=== PATIENT | male | born 1960 | race Caucasian/White ===

== ENCOUNTER → 2017-07-06 | Outpatient (CLI) | payer BC ==
--- NOTE | 2017-07-07 08:33 | XR ---
EXAMINATION TYPE: XR wrist complete LT DATE OF EXAM: 07/06/2017 COMPARISON: NONE HISTORY: 57 year-old male left wrist pain and swelling after fall last night TECHNIQUE: 3 views FINDINGS: There is an oblique, nondisplaced, intra-articular fracture of the radial styloid process. Soft tissu e swelling. There also appears to be a nondisplaced fracture through the waist of the scaphoid. IMPRESSION: 1. Oblique, nondisplaced, intra-articular fracture of the radial styloid process. 2. Findings also suggest nondisplaced fracture through the scaphoid waist.
== END | disposition home or self-care (01) ==
LOC: RADXRYALE 16:31
PROVIDERS: ATTEND Physician Assistant Medical
DX: S52.515A Nondisplaced fracture of left radial styloid process, initial encounter for closed fracture (principal)

== ENCOUNTER 2018-11-02 13:37 | Inpatient (IN) | payer BC, OTHER ==
--- NOTE | 2018-11-02 14:25 | ED ---
Abdominal Pain HPI - General Chief Complaint: Abdominal Pain Stated Complaint: constipation Time Seen by Provider: 11/02/18 13:53 Source: patient, RN notes reviewed Mode of arrival: ambulatory Limitations: no limitations - History of Present Illness Initial Comments: 58-year-old male presents emergency Department with chief complaint of intermittent abdominal pain. Patient states symptoms have been going on since July. Patient states that he's also had constipation in which she states she's tried laxatives bleeding at home. He said no prior abdominal surgeries. Denies any current nausea vomiting melena, hematochezia, dysuria or urinary frequency. He's had no fevers chills. Patient does not take any current medications patient states pain is actually resolved at this time. - Related Data Home Medications Medication Instructions Recorded Confirmed No Known Home Medications 11/02/18 11/02/18 Allergies Allergy/AdvReac Type Severity Reaction Status Date / Time No Known Allergies Allergy Verified 11/02/18 13:52 Review of Systems ROS Statement: Those systems with pertinent positive or pertinent negative responses have been documented in the HPI. ROS Other: All systems not noted in ROS Statement are negative. 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 Absent: scleral icterus, conjunctival injection, periorbital swelling Respiratory exam: Present: normal lung sounds bilaterally. Absent: respiratory distress, wheezes, rales, rhonchi, stridor Cardiovascular Exam: Present: regular rate, normal rhythm, normal heart sounds. Absent: systolic murmur, diastolic murmur, rubs, gallop, clicks GI/Abdominal exam: Present: soft, normal bowel sounds. Absent: distended, tenderness, guarding, rebound, rigid Back exam: Absent: CVA tenderness (R), CVA tenderness (L) Neurological exam: Present: alert Skin exam: Present: warm, dry, intact, normal color. Absent: rash Course Vital Signs 11/02/18 13:42 Temperature 98.1 F Pulse Rate 85 Respiratory 18 Rate Blood Pressure 146/94 O2 Sat by Pulse 98 Oximetry Medical Decision Making - Medical Decision Making 58 show male present emergency department for abdominal discomfort, felt to be constipated. X-ray shows evidence of small bowel obstruction. Patient will be admitted with consultation surgery. Patient did have lab work which is essentially unremarkable at this time. - Lab Data Result diagrams: 11/02/18 14:18 11/02/18 14:18 Lab Results 11/02/18 11/02/18 Range/Units 14:18 14:18 WBC 8.0 (3.8-10.6) k/uL RBC 5.09 (4.30-5.90) m/uL Hgb 15.6 (13.0-17.5) gm/dL Hct 46.3 (39.0-53.0) % MCV 90.9 (80.0-100.0) fL MCH 30.6 (25.0-35.0) pg MCHC 33.6 (31.0-37.0) g/dL RDW 15.1 (11.5-15.5) % Plt Count 383 (150-450) k/uL Neutrophils % 63 % Lymphocytes % 25 % Monocytes % 6 % Eosinophils % 4 % Basophils % 1 % Neutrophils # 5.1 (1.3-7.7) k/uL Lymphocytes # 2.0 (1.0-4.8) k/uL Monocytes # 0.5 (0-1.0) k/uL Eosinophils # 0.3 (0-0.7) k/uL Basophils # 0.0 (0-0.2) k/uL Sodium 133 L (137-145) mmol/L Potassium 4.1 (3.5-5.1) mmol/L Chloride 100 (98-107) mmol/L Carbon Dioxide 22 (22-30) mmol/L Anion Gap 11 mmol/L BUN 12 (9-20) mg/dL Creatinine 0.73 (0.66-1.25) mg/dL Est GFR (CKD-EPI)AfAm >90 (>60 ml/min/1.73 sqM) Est GFR (CKD-EPI)NonAf >90 (>60 ml/min/1.73 sqM) Glucose 91 (74-99) mg/dL Calcium 9.1 (8.4-10.2) mg/dL Total Bilirubin 0.8 (0.2-1.3) mg/dL AST 15 L (17-59) U/L ALT 15 L (21-72) U/L Alkaline Phosphatase 90 (38-126) U/L Total Protein 6.6 (6.3-8.2) g/dL Albumin 3.6 (3.5-5.0) g/dL Amylase <30 L (30-110) U/L Lipase 19 L (23-300) U/L Disposition Clinical Impression: Small bowel obstruction Disposition: ADMITTED IP TO THIS HOSP Condition: Stable Referrals: Liseth Daniels, PAC [Primary Care Provider] - 1-2 days
[2018-11-02 14:35] LABS: Basophils % (A) 1 %; Eosinophils # (A) 0.3 k/uL (0-0.7); Eosinophils % (A) 4 %; HCT 46.3 % (39.0-53.0); HGB 15.6 gm/dL (13.0-17.5); Lymphocytes % (A) 25 %; MCH 30.6 pg (25.0-35.0); MCHC 33.6 g/dL (31.0-37.0); MCV 90.9 fL (80.0-100.0); Mean Platelet Volume 6.7; Monocytes # (A) 0.5 k/uL (0-1.0); Monocytes % (A) 6 %; Neutrophils # (A) 5.1 k/uL (1.3-7.7); Neutrophils % (A) 63 %; Platelet Count 383 k/uL (150-450); RBC 5.09 m/uL (4.30-5.90); RDW 15.1 % (11.5-15.5)
[2018-11-02 14:36] LABS: ALT 15 U/L (21-72); AST 15 U/L (17-59); African American GFR (CKD) >90 (>60 ml/min/1.73 sqM); Albumin 3.6 g/dL (3.5-5.0); Alkaline Phosphatase 90 U/L (38-126); Amylase <30 U/L (30-110); Anion Gap 11 mmol/L; Blood Urea Nitrogen 12 mg/dL (9-20); Calcium 9.1 mg/dL (8.4-10.2); Carbon Dioxide 22 mmol/L (22-30); Chloride 100 mmol/L (98-107); Glucose 91 mg/dL (74-99); Potassium 4.1 mmol/L (3.5-5.1); Sodium 133 mmol/L (137-145); Total Bilirubin 0.8 mg/dL (0.2-1.3); Total Protein 6.6 g/dL (6.3-8.2)
--- NOTE | 2018-11-02 14:54 | XR ---
EXAMINATION TYPE: XR KUB DATE OF EXAM: 11/02/2018 COMPARISON: None INDICATION: Abdomen pain constipation TECHNIQUE: Single view abdomen upright view FINDINGS: Multiple air-fluid levels are present within dilated small bowel loops. Differential air-fluid levels appear to be present. Mass effect is not evident. Psoas margins are normal. No organomegaly is present. No free air is evident IMPRESSION: 1. Dilated small bowel loops with differential air-fluid levels suggestive for small bowel obstructio n. This may be within the mid small bowel loops. Report was called to the emergency PA room by Dr. Dangelo johnson by telephone at 1455 hours 11/02/2018
[2018-11-02] MEDS ORDERED: NALOXONE 0.4 MG/ML 1 ML VIAL IV PRN (14:59)
[2018-11-02] MEDS ORDERED: MORPHINE SULFATE 4 MG/ML SYRINGE IV PRN (14:59)
[2018-11-02] MEDS: SODIUM CHLORIDE 0.9% 1,000 ML IV SCH (16:16)
--- NOTE | 2018-11-02 17:11 | XR ---
EXAMINATION TYPE: XR KUB portable DATE OF EXAM: 11/02/2018, 4:23 PM COMPARISON: 11/02/2018, 2:40 PM HISTORY: 58-year-old male confirm NG tube placement TECHNIQUE: AP portable view FINDINGS: NG tube is short, the tip is at the GE junction level. The sidehole should be advanced by 10 cm in or doyle to enter the stomach. Severely distended bowel loops measuring up to 10.0 cm appear increased from earlier today. IMPRESSION: 1. NG tube tip at the GE junction. Advance by 10 cm and reassess. 2. Severely distended bowel loops measuring up to 10 cm. This appears increased from earlier today.
--- NOTE | 2018-11-02 17:16 | XR ---
EXAMINATION TYPE: XR abdomen 1V DATE OF EXAM: 11/02/2018 COMPARISON: 11/02/2018 INDICATION: NG tube placement TECHNIQUE: Single view abdomen upright view FINDINGS: Prominent bowel gas is present within the midabdomen. There is been placement of a nasogastric tube w ith the tip within the proximal left upper quadrant. This could be advanced 5 to 10 cm. No free air is evident. No obvious mass effect organomegaly is evident. IMPRESSION: 1. Nasogastric tube tip within the proximal left upper quadrant of the abdomen. This could be advance d 5 to 10 cm. 2. Prominent loops of bowel remain evident.
--- NOTE | 2018-11-02 17:44 | P.HPIM ---
History of Present Illness H&P Date: 11/02/18 Chief Complaint: Abdominal pain 58-year-old male with long history of smoking presents to the ED for abdominal pain and bloating. Patient reports bloating in his abdomen that his pain on and off since July of this year. More recently, patient has experienced bloatingthat has been progressively worsening over the last couple of days. He reports lower abdominal pain bilaterally. Pain is 7-8 out of 10 in severity. Patient is unable to describe the characteristics of this pain. Pain is aggravated with meals with no alleviating factors. Patient also reports some episodes of nonbilious nonbloody nausea and vomiting. He denies any headache or lower extremity edema. He denies any fever or chills. He denies any cough, chest pain, shortness of breath, changes in urination. Patient reports a history of constipation and difficulties moving his bowels. Patient also reports decreased appetite at this time. He denies any dizziness, numbness/weakness/tingling of t he extremities. In the ED, vital signs are stable. CBC was unremarkable. CMP showed a sodium 132. Lipase was negative. KUB showed small bowel obstruction. NG tube was placed in the ED and patient was admitted for medical management with surgery on consultation. Review of Systems All systems: negative Past Medical History Past Medical History: GERD/Reflux Additional Past Medical History / Comment(s): Constipation since Jul, 2018. History of Any Multi-Drug Resistant Organisms: None Reported Past Surgical History: Orthopedic Surgery Additional Past Surgical History / Comment(s): lt foot amputation due to farm ac cident Past Anesthesia/Blood Transfusion Reactions: No Reported Reaction Smoking Status: Current every day smoker - Past Family History Father Additional Family Medical History / Comment(s): Father had an arterial injury and for this. Mother Family Medical History: Diabetes Mellitus Medications and Allergies Home Medications Medication Instructions Recorded Confirmed Type No Known Home Medications 11/02/18 11/02/18 History Allergies Allergy/AdvReac Type Severity Reaction Status Date / Time No Known Allergies Allergy Verified 11/02/18 13:52 Physical Exam Vitals: Vital Signs Temp Pulse Resp BP Pulse Ox 11/02/18 13:42 98.1 F 85 18 146/94 98 Intake and Output 11/02/18 11/02/18 11/02/18 06:59 14:59 22:59 Other: Weight 83.915 kg General: [non toxic], [no distress], [appears at stated age] Derm: [warm], [dry] Head: [atraumatic], [normocephalic], [symmetric] Eyes: [EOMI], [no lid lag], [anicteric sclera] Mouth: [no lip lesion], [mucus membranes moist] Cardiovascular: [S1S2 reg], [no murmur], [positive DP pulse right lower extremity] Lungs: [CTA bilateral], [no rhonchi, no rales] , [no accessory muscle use] Abdominal: [distended], [ nontender to palpation], [no guarding], [no appreciable organomegaly], [decreased bowel sounds] Ext: [no gross muscle atrophy], [no edema], [no contractures], [left lower extremity amputation] Neuro: [no focal neuro deficits] Psych: [Alert], [oriented], [appropriate affect] Results CBC & Chem 7: 11/02/18 14:18 11/02/18 14:18 Labs: Abnormal Lab Results - Last 24 Hours (Table) 11/02/18 Range/Units 14:18 Sodium 133 L (137-145) mmol/L AST 15 L (17-59) U/L ALT 15 L (21-72) U/L Amylase <30 L (30-110) U/L Lipase 19 L (23-300) U/L Thrombosis Risk Factor Assmnt - Choose All That Apply Any of the Below Risk Factors Present?: Yes Each Factor Represents 1 point: Age 41-60 years Other Risk Factors: No Other congenital or acquired thrombophilia - If yes, enter type in comment: No Thrombosis Risk Factor Assessment Total Risk Factor Score: 1 Thrombosis Risk Factor Assessment Level: Low Risk Assessment and Plan Assessment: Assessment and Plan Small bowel obstruction Smoker Unknown etiology. In the absence of abdominal surgery, malignancy is a strong possibility especially given his long smoking history. Plans: Continue NG tube to suction. Nothing by mouth. Zofran as needed for nausea or vomiting. Start normal saline at 75 mL per hour. Morphine as needed for severe pain. Follow surgery consultation. Will likely need colonoscopy after resolution. Plans: Will offer nicotine patch if wanted. DVT prophylaxis: [Heparin] Discussed with: [Patient] Anticipated discharge: [Home] Anticipated discharge place: [> 48 hours] A total of [45] minutes was spent on the care of this complex patient more than 50% of the time was spent in counseling and care coordination. Patient names his sister Ana decision-maker indicates that he can't make decisions for himself. Patient is open towards chest compressions and medications but does not want to intubations at this time.
[2018-11-02] MEDS: IOPAMIDOL-300 CONTRAST 30 ML VIAL (ORAL USE) PO PRN ×2 (19:32→20:30)
--- NOTE | 2018-11-02 20:05 | P.GSCN ---
History of Present Illness Consult date: 11/02/18 History of present illness: CHIEF COMPLAINT: Bowel obstruction HISTORY OF PRESENT ILLNESS: The patient is a 58 year old male who presented with acute abdominal distention yesterday. No reports of prior episode or prior hospitalization secondary to abdominal pain. Denies any previous abdominal surgeries. He reported nausea and vomiting yesterday and this morning. In fact, he reports feeling ill for at least 3 months since July 2018. He reports increasing constipation He had not sought medical care as he did not have insurance. He confirms unintentional weight loss. No previous medical history or medical care described. No reports of blood in stools. He has not had a colonoscopy. No known personal or family history of cancers. He reported moderate generalized abdominal pain yesterday. Since placement of nasogastric tube, abdominal pain is minimal. He had a small bowel movement and passage of flatus earlier this morning. Additional studies including an abdominal x-ray confirms small bowel obstruction hence general surgery consultation. PAST MEDICAL HISTORY: See list. PAST SURGICAL HISTORY: See list. MEDICATIONS: See list. ALLERGIES: See list. SOCIAL HISTORY: See list. FAMILY HISTORY: No reports of Crohn's disease or inflammatory bowel disease REVIEW OF ORGAN SYSTEMS: CONSTITUTIONAL: No fevers or chills. Has recent weight loss. EYES: Denies any trouble with vision. Wears glasses. HEENT: No difficulties with hearing. No nosebleeds. No difficulty swallowing. RESPIRATORY: Denies pneumonia. Denies any troubles with breathing or dyspnea on exertion. CARDIOVASCULAR: Denies any chest pain, palpitations, or recent heart attacks. GASTROINTESTINAL: Denies fatty food intolerance. Has change in bowel habits including constipation. GENITOURINARY: Denies any blood in urine or increased urinary frequency. NEUROLOGICAL: Denies any numbness or tingling along the distal extremities. No seizure disorders or headaches. MUSCULOSKELETAL: Has back pain, stiffness or joint arthritis. SKIN: No current skin cancer. No rash. PSYCHIATRIC: Denies current depression or suicidal thoughts. ENDOCRINE: Denies current thyroid disorders. Denies any blood sugar glucose intolerance. HEME/LYMPHATIC: Denies any lumps and bumps around the neck. No recent deep venous thrombosis. ALLERGY/IMMUNOLOGY: No immunoglobulin therapy. No immune deficiencies. BREAST: Denies current breast lumps, pain or nipple discharge. PHYSICAL EXAM: VITALS: Reviewed CONSTITUTIONAL: Well developed and in no acute distress. EYES: Conjuctivae without sclera icterus. Pupils are equally round and reactive to light. Extraocular movements grossly intact. HEAD, EARS, NOSE, THROAT: Moist buccal mucosa. Head is atraumatic, normocephalic. Hears conversational speech. No nasal drainage. Poor dentition. Nasogastric tube present NECK: Supple. No JV distention. No thyroidomegaly. RESPIRATORY: Non-labored respirations and equal bilateral excursions. No gross wheezes. CARDIOVASCULAR: Extremities without moderate edema. Palpable 2+ radial pulses. ABDOMEN: Soft. Distended. No peritonitis. No moderate diffuse tenderness. LYMPH: No neck lymphadenopathy. MUSCULOSKELETAL: Range of motion bilateral upper extremities within normal limits. Nail and fingers with good capillary refill. SKIN: Warm and well perfused with good skin turgor. NEUROLOGIC: Cranial nerves I through XII grossly intact. Sensation upper and extremities intact. No focal or lateralizing signs. PSYCH: Appropriate affect. Alert and oriented to person, place and time. CLINCAL LABS: White blood cell count normal at 8000. Hemoglobin normal at 15.6 mg/dL. AST and ALT are low. RADIOLOGY: Report reviewed confirming distended small bowel loops IMAGING: Independently reviewed with multiple air-fluid levels. No gas in the rectum. Findings are consistent with intestinal obstruction ASSESSMENT: 1. Small bowel obstruction 2. Lack of general medical care PLAN: 1. Recommend CT of the abdomen and pelvis for SBO 2. Small bowel obstruction in a virgin abdomen highly suspicious for malignancy versus other intra-abdominal pathology which was reviewed with the patient. 3. GI prophylaxis for nasogastric tube decompression 4. Possible surgical intervention was also described in a virgin abdomen pending CT findings Thank you for this kind consultation. Past Medical History Past Medical History: GERD/Reflux Additional Past Medical History / Comment(s): Constipation since Jul, 2018. 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 Mother Family Medical History: Diabetes Mellitus Medications and Allergies Home Medications Medication Instructions Recorded Confirmed Type No Known Home Medications 11/02/18 11/02/18 History Allergies Allergy/AdvReac Type Severity Reaction Status Date / Time No Known Allergies Allergy Verified 11/02/18 13:52 Surgical - Exam Vital Signs Temp Pulse Resp BP Pulse Ox 98.1 F 85 18 146/94 98 11/02/18 13:42 11/02/18 13:42 11/02/18 13:42 11/02/18 13:42 11/02/18 13:42 Results - Labs 11/02/18 14:18 11/02/18 14:18 Abnormal Lab Results - Last 24 Hours (Table) 11/02/18 Range/Units 14:18 Sodium 133 L (137-145) mmol/L AST 15 L (17-59) U/L ALT 15 L (21-72) U/L Amylase <30 L (30-110) U/L Lipase 19 L (23-300) U/L Diabetes panel 11/02/18 Range/Units 14:18 Sodium 133 L (137-145) mmol/L Potassium 4.1 (3.5-5.1) mmol/L Chloride 100 (98-107) mmol/L Carbon Dioxide 22 (22-30) mmol/L BUN 12 (9-20) mg/dL Creatinine 0.73 (0.66-1.25) mg/dL Glucose 91 (74-99) mg/dL Calcium 9.1 (8.4-10.2) mg/dL AST 15 L (17-59) U/L ALT 15 L (21-72) U/L Alkaline Phosphatase 90 (38-126) U/L Total Protein 6.6 (6.3-8.2) g/dL Albumin 3.6 (3.5-5.0) g/dL Calcium panel 11/02/18 Range/Units 14:18 Calcium 9.1 (8.4-10.2) mg/dL Albumin 3.6 (3.5-5.0) g/dL Pituitary panel 11/02/18 Range/Units 14:18 Sodium 133 L (137-145) mmol/L Potassium 4.1 (3.5-5.1) mmol/L Chloride 100 (98-107) mmol/L Carbon Dioxide 22 (22-30) mmol/L BUN 12 (9-20) mg/dL Creatinine 0.73 (0.66-1.25) mg/dL Glucose 91 (74-99) mg/dL Calcium 9.1 (8.4-10.2) mg/dL Adrenal panel 11/02/18 Range/Units 14:18 Sodium 133 L (137-145) mmol/L Potassium 4.1 (3.5-5.1) mmol/L Chloride 100 (98-107) mmol/L Carbon Dioxide 22 (22-30) mmol/L BUN 12 (9-20) mg/dL Creatinine 0.73 (0.66-1.25) mg/dL Glucose 91 (74-99) mg/dL Calcium 9.1 (8.4-10.2) mg/dL Total Bilirubin 0.8 (0.2-1.3) mg/dL AST 15 L (17-59) U/L ALT 15 L (21-72) U/L Alkaline Phosphatase 90 (38-126) U/L Total Protein 6.6 (6.3-8.2) g/dL Albumin 3.6 (3.5-5.0) g/dL Assessment and Plan (1) Small bowel obstruction Current Visit: Yes Status: Acute Code(s): K56.609 - UNSP INTESTNL OBST, UNSP TO PARTIAL VERSUS COMPLETE OBST SNOMED Code(s): 081405369
--- NOTE | 2018-11-02 22:03 | CT ---
"EXAMINATION TYPE: CT abdomen pelvis w con DATE OF EXAM: 11/02/2018 COMPARISON: None INDICATION: SBO. abdominal pain and constipation. DLP: 714.4 mGycm, Automated exposure control for dose reduction was used. CONTRAST: 100 mL of Isovue 300. Study performed with Oral Contrast TECHNIQUE: Axial images were obtained from above the diaphragm to the pubic rami in the axial plane a t 5 mm thick sections. Reconstructed images are reviewed on the computer in the coronal plane. FINDINGS: Limited CT sections are obtained the lung bases. There appears to be some compressive atelectasis in the posterior right lung base.. Nasogastric tube is present with the tip in the stomach. CT ABDOMEN: Liver: There are several suspicious hypodensities within the liver including a 1.9 cm area within the lateral mid right lobe liver, series 4 image 19, measuring 2.2 cm within the medial right tip of the liver, image 26, and the possible posterior peripheral hypodensity measuring 0.8 cm, series 4 image 20. This potentially could be some volume averaging with the adjacent kidney. Findings are nonspecifi c. Evaluation for metastatic lesions is recommended. Spleen: Normal Pancreas: Normal Adrenal glands: The adrenal glands are normal. Gallbladder: Normal Kidneys: No masses are evident. No hydronephrosis is present. 4 bilateral renal cysts are present. There is a more intermediate signal renal cyst measuring 2.3 cm and 41 Hounsfield units in the environmental analyst ior lateral right inferior kidney. Delayed images were obtained through the kidneys, which remain un remarkable. Aorta: Vascular calcification is within the aorta. Inferior vena cava: There is flattening of the inferior vena cava which could be related to patient v olume status CT PELVIS: Multiple loops of small bowel and colon marked dilatation. This extends to an area of increased densi ty within the mid descending colon region. Obstruction is suspected. Underlying mass should be consid ered. The distal colon appears decompressed. There are loops of bowel which are incompletely distende d or lack oral contrast limiting their evaluation. Oral contrast is present and extends through proxi mal dilated jejunum. Appendix: Normal as visualized. Urinary bladder: Normal. Genitourinary structures: The prostate is slightly prominent. Osseous structures: Some mild heterogeneity may be within the posterior medial iliac wings. Metastati c lesions are not excluded at this level. Note is made of facet degenerative changes within the lumba r spine. IMPRESSIONS: 1. Masslike area within the mid descending colon causing colonic and small bowel obstruction. Workup for neoplasm is recommended. 2. Suspected metastatic lesions within the liver discussed above. The largest in the medial inferior right lobe lesion 2.2 cm in size. 3. Lytic lesions are not entirely excluded within the medial iliac wings adjacent to the sacroiliac j oints bilaterally. A Red level critical message alert has been initiated for Debra Angel MD via the [employer] | Critical Results System on 11/02/2018 10:01 PM. This message alert has been sent to Debra deshpande MD via the preferences provided by the clinician for the receipt of Radiology Critical Finding s. Message ID [id number]."
[2018-11-03] MEDS: SODIUM CHLORIDE 0.9% 1,000 ML IV SCH (06:15)
[2018-11-03 08:14] LABS: Appearance,Urine Clear (Clear); Bilirubin,Urine Negative (Negative); Blood,Urine Trace (Negative); Color,Urine Yellow; Glucose,Urine (UA) Negative (Negative); Ketones,Urine 2+ (Negative); Leukocyte Esterase,Urine Negative (Negative); Mucus,Urine Rare /hpf; Nitrite,Urine Negative (Negative); PH, Urine 5.5 (5.0-8.0); Protein,Urine Negative (Negative); RBC,Urine 3 /hpf (0-5); Specific Gravity,Urine 1.029 (1.001-1.035); Squamous Epithelial Cell,Urine <1 /hpf (0-4)
--- NOTE | 2018-11-03 08:30 | P.PN ---
Subjective Progress Note Date: 11/03/18 CHIEF COMPLAINT: Bowel obstruction HISTORY OF PRESENT ILLNESS: The patient is a 58 year old male who presented with acute abdominal distention with small bowel obstruction in a virgin abdomen. I was personally notified by [facility] with findings of large and small bowel obstruction from suspected malignancy of the sigmoid colon. Patient denies any moderate abdominal pain. No reports of fevers or chills. No nausea and vomiting with nasogastric tube. ROS: No current chest pain. No dyspnea on exertion. Reports trouble swallowing with nasogastric tube. PHYSICAL EXAM: VITALS: Reviewed CONSTITUTIONAL: Well developed and in no acute distress. EYES: Conjuctivae without sclera icterus. Pupils are equally round and reactive to light. Extraocular movements grossly intact. Wears glasses. HEAD, EARS, NOSE, THROAT: Moist buccal mucosa. Head is atraumatic, normocephalic. Hears conversational speech. No nasal drainage. Nasogastric tube present with dark contents RESPIRATORY: Non-labored respirations and equal bilateral excursions. No gross wheezes. CARDIOVASCULAR: Extremities without moderate edema. Palpable 2+ radial pulses. ABDOMEN: Soft. Distended. No peritonitis. No moderate diffuse tenderness. MUSCULOSKELETAL: Range of motion bilateral upper extremities within normal limits. Nail and fingers with good capillary refill. SKIN: Warm and well perfused with good skin turgor. NEUROLOGIC: Cranial nerves I through XII grossly intact. Sensation upper and extremities intact. No focal or lateralizing signs. PSYCH: Appropriate affect. Alert and oriented to person, place and time. CLINCAL LABS: Pending at this time RADIOLOGY: CT of the abdomen and pelvis demonstrating no free air. Possible lesions in the liver. Findings confirm obstruction of the colon. IMAGING: Independently reviewed CT scanned with him with findings of 8-cm sigmoid tumor causing large and small bowel obstruction. ASSESSMENT: 1. Small bowel obstruction 2. Large bowel obstruction due to colonic tumor 3. Abnormal computed tomography scan possible metastases to liver PLAN: 1. He has complete large bowel obstruction with high risk of perforation as he has moderately dilated large bowel including cecum. 2. Surgical intervention imminent for large bowel obstruction. Benefits and risk of procedure described for colectomy with colostomy creation. 3. He has had no general medical care and as a result increased risk for perioperative complications. We'll obtain EKG and echo, type and screen, tumor panel, iron studies as well. 4. Also, multidisciplinary team including oncology was also described for possible chemotherapy in the future. Tumor markers including echo of the heart needed. 5. Placement of Lyle catheter and maintaining nasogastric tube also described. 6. Disposition at least 7-10 days pending perioperative outcome as patient is high risk. CRITICAL CARE TIME: 34 minutes for coordination of care, education of new diagnosis of colon cancer, preparation for urgent surgical intervention Objective - Vital Signs Vital signs: Vital Signs Temp 98.1 F 11/03/18 04:40 Pulse 71 11/03/18 04:40 Resp 20 11/03/18 04:40 BP 128/75 11/03/18 04:40 Pulse Ox 93 L 11/03/18 04:40 Intake & Output 11/02/18 11/03/18 11/03/18 18:59 06:59 18:59 Intake Total 100 Balance 100 Weight 83.915 kg Intake: Oral 100 Other: # Voids 1 - Labs CBC & Chem 7: 11/02/18 14:18 11/02/18 14:18 Labs: Abnormal Lab Results - Last 24 Hours (Table) 11/02/18 11/03/18 Range/Units 14:18 07:27 Sodium 133 L (137-145) mmol/L AST 15 L (17-59) U/L ALT 15 L (21-72) U/L Amylase <30 L (30-110) U/L Lipase 19 L (23-300) U/L Urine Ketones 2+ H (Negative) Urine Blood Trace H (Negative) Urine Mucus Rare H (None) /hpf Assessment and Plan (1) Colon cancer Current Visit: Yes Status: Acute Code(s): C18.9 - MALIGNANT NEOPLASM OF COLON, UNSPECIFIED SNOMED Code(s): 137371849 (2) Metastases to the liver Current Visit: Yes Status: Acute Code(s): C78.7 - SECONDARY MALIG NEOPLASM OF LIVER AND INTRAHEPATIC BILE DUCT SNOMED Code(s): 25805974 (3) Abnormal CT of the abdomen Current Visit: Yes Status: Acute Code(s): R93.5 - ABN FINDINGS ON DX IMAGING OF ABD REGIONS, INC RETROPERITON SNOMED Code(s): 75280108736042825 (4) Large bowel obstruction Current Visit: Yes Status: Acute Code(s): K56.609 - UNSP INTESTNL OBST, UNSP TO PARTIAL VERSUS COMPLETE OBST SNOMED Code(s): 564060561
[2018-11-03 09:41] LABS: INR 1.1 (<1.2); Prothrombin Time 11.9 sec (9.0-12.0)
--- NOTE | 2018-11-03 09:56 | ECHOF ---
Referral Reason:Hypertensive heart disease MEASUREMENTS -------- HEIGHT: 188.0 cm WEIGHT: 83.9 kg BP: 128/75 RVIDd: 2.9 cm (< 3.3) IVSd: 1.4 cm (0.6 - 1.1) LVIDd: 4.9 cm (3.9 - 5.3) LVPWd: 1.5 cm (0.6 - 1.1) IVSs: 2.0 cm LVIDs: 3.5 cm LVPWs: 1.8 cm LA Diam: 3.9 cm (2.7 - 3.8) LAESV Index (A-L): 26.47 ml/m Ao Diam: 4.0 cm (2.0 - 3.7) AV Cusp: 3.3 cm (1.5 - 2.6) MV EXCURSION: 21.518 mm (> 18.000) MV EF SLOPE: 65 mm/s (70 - 150) EPSS: 0.7 cm MV E Cirilo: 0.68 m/s MV DecT: 317 ms MV A Cirilo: 0.72 m/s MV E/A Ratio: 0.95 FINDINGS -------- Sinus rhythm. This was a technically good study. The left ventricular size is normal. There is moderate concentric left ventricular hypertrophy. O verall left ventricular systolic function is normal with, an EF between 60 - 65 %. The right ventricle is normal in size. Normal LA size by volume 22+/-6 ml/m2. The right atrium is normal in size. Interatrial and interventricular septum intact. The aortic valve is trileaflet and appears structurally normal. The mitral valve is normal. There is trace mitral regurgitation. The tricuspid valve appears structurally normal. There is no pulmonic regurgitation present. The aortic root is dilated measuring 4.0cm. Normal inferior vena cava with normal inspiratory collapse consistent with estimated right atrial pre ssure of 5 mmHg. There is no pericardial effusion. CONCLUSIONS -------- 1. Sinus rhythm. 2. This was a technically good study. 3. The left ventricular size is normal. 4. There is moderate concentric left ventricular hypertrophy. 5. Overall left ventricular systolic function is normal with, an EF between 60 - 65 %. 6. The right ventricle is normal in size. 7. Normal LA size by volume 22+/-6 ml/m2. 8. The right atrium is normal in size. 9. Interatrial and interventricular septum intact. 10. The aortic valve is trileaflet and appears structurally normal. 11. The mitral valve is normal. 12. There is trace mitral regurgitation. 13. The tricuspid valve appears structurally normal. 14. There is no pulmonic regurgitation present. 15. The aortic root is dilated measuring 4.0cm. 16. Normal inferior vena cava with normal inspiratory collapse consistent with estimated right atrial pressure of 5 mmHg. 17. There is no pericardial effusion. FOOT SETTER: Annabel Bowens RDCS
[2018-11-03 10:37] VITALS: BMI 23.7
[2018-11-03] MEDS ORDERED: LIDOCAINE 1% 20 ML VIAL (10MG/ML) FOR IV START INTRADERMA ONE (12:00)
[2018-11-03] MEDS ORDERED: LACTATED RINGERS 1,000 ML IV ONE ×4 (12:17→16:56)
[2018-11-03] MEDS ORDERED: fentaNYL (PF) 50 MCG/ML 2 ML AMP IVP ONE ×2 (12:18→12:20)
[2018-11-03] MEDS ORDERED: MIDAZOLAM (PF) 2 MG/2 ML VIAL IVP ONE ×2 (12:18→12:20)
[2018-11-03] MEDS ORDERED: NALOXONE 0.4 MG/ML 1 ML VIAL IV PRN (12:49)
[2018-11-03] MEDS ORDERED: ROPIVACAINE 400 MG, HYDROMORPHONE (PF) 5 MG in SODIUM CHLORIDE 0.9% 170 ML EPIDURAL PRN (12:49)
[2018-11-03] MEDS ORDERED: MIDAZOLAM 2 MG/2 ML VIAL ONE (13:13)
[2018-11-03] MEDS ORDERED: LIDOCAINE 1% INJ 10MG/ML (20 ML MDV) ONE (13:13)
[2018-11-03] MEDS ORDERED: ONDANSETRON 4 MG/2 ML VIAL ONE (13:13)
[2018-11-03] MEDS ORDERED: ROCURONIUM BROMIDE 10 MG/ML 10 ML VIAL IV ONE (13:13)
[2018-11-03] MEDS ORDERED: NEOSTIGMINE 1 MG/ML 10 ML VIAL ONE (13:13)
[2018-11-03] MEDS ORDERED: SUCCINYLCHOLINE CHLORIDE 100 MG/5 ML SYR IV ONE (13:13)
[2018-11-03] MEDS ORDERED: GLYCOPYRROLATE 0.2 MG/ML 2 ML VIAL ONE (13:13)
[2018-11-03] MEDS ORDERED: PHENYLEPHRINE-0.9% NACL SYG 1 MG/10 ML SYRINGE ONE (13:13)
[2018-11-03] MEDS ORDERED: ceFAZolin 1,000 MG VIAL ONE (13:13)
[2018-11-03] MEDS ORDERED: fentaNYL (PF) 50 MCG/ML 2 ML AMP ONE (13:13)
[2018-11-03] MEDS ORDERED: PROPOFOL 10 MG/ML 20 ML VIAL IV ONE (13:13)
[2018-11-03] MEDS ORDERED: SODIUM CHLORIDE 0.9% 50 ML with ceFAZolin 2,000 MG IV ONE ×2 (13:44)
--- NOTE | 2018-11-03 14:47 | P.PN ---
Subjective Progress Note Date: 11/03/18 Principal diagnosis: large bowel obstruction Patient gone to OR. Objective - Vital Signs Vital signs: Vital Signs Temp 98.4 F 11/03/18 11:44 Pulse 75 11/03/18 11:44 Resp 18 11/03/18 11:44 BP 137/86 11/03/18 11:44 Pulse Ox 92 L 11/03/18 11:44 Intake & Output 11/02/18 11/03/18 11/03/18 18:59 06:59 18:59 Intake Total 100 1050 Balance 100 1050 Weight 83.915 kg 83.915 kg Intake: IV 1050 Oral 100 Other: Voiding Method Urinal # Voids 1 - Exam Patient gone to OR. - Labs CBC & Chem 7: 11/02/18 14:18 11/02/18 14:18 Labs: Abnormal Lab Results - Last 24 Hours (Table) 11/02/18 11/03/18 Range/Units 14:18 07:27 Sodium 133 L (137-145) mmol/L AST 15 L (17-59) U/L ALT 15 L (21-72) U/L Amylase <30 L (30-110) U/L Lipase 19 L (23-300) U/L Urine Ketones 2+ H (Negative) Urine Blood Trace H (Negative) Urine Mucus Rare H (None) /hpf Assessment and Plan Assessment: Assessment and Plan Small bowel obstruction Smoker Related to colon cancer with metastatic disease as seen on CT abdomen and pelvis. Plans for surgery due to large bowel obstruction. Plans: Continue NG tube to suction. Nothing by mouth. Zofran as needed for nausea or vomiting. Start normal saline at 75 mL per hour. Morphine as needed for severe pain. Follow surgery consultation. Follow Oncology recommendations for workup. Plans: Will offer nicotine patch if wanted. [Patient gone to the OR for surgery of large bowel obstruction. Oncology consulted for colon cancer with metastatic disease seen on CT. Will need biopsy. Patient is pending clinical improvement.]
[2018-11-03 16:37] LABS: Carcinoembryonic Antigen 5.6 ng/mL (0.0-4.9)
[2018-11-03 16:54] LABS: Alpha Fetoprotein, Tumor Mkr <2.5 ng/mL (0.0-7.9); Iron Saturation 10.26 (15.00-50.00)
--- NOTE | 2018-11-03 17:15 | P.OP ---
Date of Procedure: 11/03/18 Description of Procedure: Date of Procedure: 11/03/18 SURGEON: MIRNA SALAZAR MD PREOPERATIVE DIAGNOSES: 1. Small bowel obstruction 2. Large bowel obstruction 3. Obstructing colonic sigmoid tumor causing small large bowel obstruction 4. Abnormal computed tomography scan with liver lesions suspicious for metastasis 5. Absence of general medical care without prior colonoscopy 6. Qjpsu-[id number]-gysr amputation status, left lower leg 7. Tobacco abuse 8. Alcohol abuse disorder POSTOPERATIVE DIAGNOSES: 1. Small bowel obstruction 2. Large bowel obstruction 3. Obstructing colonic sigmoid tumor causing small large bowel obstruction 4. Abnormal computed tomography scan with liver lesions suspicious for metastasis 5. Absence of general medical care without prior colonoscopy 6. Oqoqd-dhf-lods amputation status, left lower leg 7. Tobacco abuse 8. Alcohol abuse disorder 9. Right anterior lower lobe liver lesion 10. Sigmoid colon cancer 11. Pelvic adenopathy, sigmoid mesentery Procedure(s) Performed: 1. Colotomy for colonic decompression via cecum, 1000 mL of stool evacuated 2. Exploratory laparotomy with sigmoid colectomy 3. Mobilization of hepatic flexure 4. Descending colostomy creation 5. Peritoneal lavage 6000 mL normal saline 6. Placement of round #19 GRZEGORZ drain right lower quadrant and pelvis 7. Application of 20 cm PREVENA wound VAC 8. Devitalized rectal stump. 9. Grace's procedure Anesthesia: GETA, epidural Estimated Blood Loss (ml): 50 Pathology: 1. Cecum enterostomy closure 2. Distal sigmoid resection 3. Proximal sigmoid resection with colon cancer 4. Open colostomy site Condition: stable Disposition: floor COMPLICATIONS: None. Operative Findings: 1. Firm nodule palpated along the right anterior inferior edge of liver over 2- 3 cm in size 2. Multiple palpable clinical mesenteric lymph nodes of the sigmoid colon 3. Moderate redundant sigmoid colon with decompression of distal rectal segment 4. Redundant transverse mesocolon 5. Appendix unremarkable 6. No peritoneal studding identified 7. Size of tumor 8 x 5 cm with extension to left lateral abdominal wall INDICATIONS: The patient is a 58-year-old male who presented acutely with large and small bowel obstruction. He's never had a colonoscopy before. An emergent CT of the abdomen and pelvis demonstrated large obstructing mass at the sigmoid colon including liver lesions highly suspicious for metastatic colon cancer. Urgent medical including cardiac risk assessment was performed. Urgent surgical intervention with descending colostomy creation and sigmoid resection was described to address his large and small bowel obstruction. All questions were answered and risks were reviewed with the patient. Informed consent was obtained. DESCRIPTION: Preoperatively, patient had epidural placement per anesthesia. The patient was brought into the operating room and placed in supine position. After general induction, the abdomen was prepped and draped in a standard sterile fashion. Placement of nasogastric tube and Lyle catheter was performed. Ioban draping was also placed to minimize any contamination to the skin. Next, using #10 blade, the abdomen was entered along the midline from the epigastrium to the pubis. The abdomen was inspected. No peritoneal studding was identified. The liver was palpated with a firm nodule along the right anterior inferior aspect of at least 2-3 cm. The small bowel and colon were moderately distended prohibiting further inspection of the abdomen. The cause of obstruction was consistent with mass along the sigmoid colon of the left pelvis. To proceed, the colon and small bowel was decompressed via the cecum after using a 3-0 silk for pursestring suture along the anterior serosa of the cecum. A colotomy was performed and the colon was decompressed with over 1000 mL of liquid stool evacuated. The cecostomy was closed using Covidien 60-mm Endo LORETTA purple load. No peritoneal studding was identified. Mild diverticular disease was found along the sigmoid colon. Next, universal Buckwalter retractor was placed with a bladder blade for exposure. The small bowel was packed in the upper abdomen. The descending colon and sigmoid colon was mobilized along the medial and lateral attachments with care to avoid any injury to the ureters along the usual anatomical landmarks. The descending colon was further mobilized along the splenic flexure to provide adequate length for a descending colostomy. Carefully the sigmoid colon was identified and mobilized along the white line of Toldt. At least 5 cm distal to the sigmoid mass, the rectum was divided using Covidien 60 mm black loads tri-stapler after decompression of the rectum via a colotomy. The mass was mobilized carefully from the pelvis and sidewall and similarly divided using Covidien 60 mm black loads tri-stapler technology. The rest of the sigmoid mesentery and pelvis was palpated with clinical large lymph nodes over 1 cm also sent as en bloc with specimen. The specimen was passed off. Hemostasis was checked with electro Bovie cautery including Enseal. Mild stool spillage occurred and the abdomen was copiously irrigated with 6 L of normal saline solution. A round #19 drain was placed and exited via the right lower quadrant after tagging the rectal stump using 2-0 Prolene. Next, attention was brought to the delivering and creating of the descending colostomy. A point along the abdominal wall and rectus muscle was selected for the colostomy. Mariusz was used to elevate the skin and a #10 blade was taken across in tangential manner to create the skin defect of approximately quarter-size. The fat of the skin was mobilized using a small rich. The rectus muscle was identified and scored with a cruciate scoring of electro- Bovie cautery. Next, using a muscle-splitting technique with a hemostat, the peritoneum was entered. The peritoneum was widened such that 2 fingerbreadths could easily pass for delivering and evaginating the descending portion of the colon through the skin. The abdominal cavity was copiously irrigated as described until completely clear. Round number #19 Yash-[place] drain was entered along the right lower abdomen and exited through the skin. Next, the GRZEGORZ drain was tacked along the skin using a 2-0 nylon. The midline incision was closed using double-stranded 0 PDS. Next, the subcutaneous tissue was copiously irrigated with normal saline and hydrogen peroxide. About the umbilicus interrupted 3-0 Vicryl dermal sutures were placed as to avoid any albina around the umbilicus. For the rest of the incision, stainless steel skin albina were applied. The midline incision was covered using PREVENA wound VAC and attention was brought to maturation of the colostomy. The staple edge was divided and removed. Next quadrant sutures at 12 o'clock, 3 o'clock, 6 o'clock, and 9 o'clock position was made using serosa, mucosal and dermal bites using 2-0 Vicryl. Interrupted 3-0 Vicryl was placed in between all quadrants sutures to completely mature the ostomy. Hemostasis was checked. A Coloplast was then placed. At the end of the procedure, needle, sponge, and instrument count had been verified correct by surgical supply assistant.
--- NOTE | 2018-11-03 19:29 | P.CONS ---
<Oralia Varela - Last Filed: 11/03/18 19:27> History of Present Illness - Reason for Consult Consult date: 11/03/18 concern malignancy Requesting physician: Loan Adhikari - History of Present Illness Attempted to see patient twice down in OR. I have reviewed chart and will follow-up in am Review of Systems A 14 point review of systems was assessed and completed and are all negative except for HPI Past Medical History Past Medical History: GERD/Reflux Additional Past Medical History / Comment(s): Constipation since Jul, 2018. 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 Mother Family Medical History: Diabetes Mellitus Medications and Allergies Home Medications Medication Instructions Recorded Confirmed Type Ibuprofen [Motrin] 600 mg PO Q8HR PRN #30 tab 11/04/18 Rx Allergies Allergy/AdvReac Type Severity Reaction Status Date / Time No Known Allergies Allergy Verified 11/02/18 13:52 Physical Exam Vitals: Vital Signs Temp Pulse Resp BP Pulse Ox 11/03/18 11:44 98.4 F 75 18 137/86 92 L 11/03/18 04:40 98.1 F 71 20 128/75 93 L 11/02/18 21:12 97.8 F 79 18 136/84 97 11/02/18 17:40 97.1 F L 76 16 155/71 96 Intake and Output 11/03/18 11/03/18 11/03/18 06:59 14:59 22:59 Intake Total 0 3050 Balance 0 3050 Intake: IV 3050 Oral 0 Other: Voiding Method Urinal # Voids 1 Weight 83.915 kg Results CBC & Chem 7: 11/02/18 14:18 11/02/18 14:18 Labs: Abnormal Lab Results - Last 24 Hours (Table) 11/03/18 11/03/18 11/03/18 Range/Units 07:27 09:05 09:05 Iron 28 L (65-175) ug/dL Iron Saturation 10.26 L (15.00-50.00) Carcinoembryonic Ag 5.6 H (0.0-4.9) ng/mL Urine Ketones 2+ H (Negative) Urine Blood Trace H (Negative) Urine Mucus Rare H (None) /hpf <Lucas Loredo - Last Filed: 11/04/18 17:26> History of Present Illness - Reason for Consult Consult date: 11/04/18 - History of Present Illness The patient was seen in consult on 11/04/18. This is a 58-year-old white male, with no prior history of chronic medical disease. Since 07/24, the patient had been having episodes of abdominal bloating with nausea and abdominal pain associated with constipation. These episodes seem to be associated with eating, and would resolve spontaneously with resumption of bowel movements. These had become more frequent and significant. He came into the hospital as a result of a repeat episode that appear to be longer lasting, and associated with increased amount of lower abdominal pain. He had associated nausea and vomiting. In the emergency room KUB revealed evidence of small bowel obstruction. Computed tomography scan of the abdomen revealed a masslike density in the mid descending colon causing obstruction. He also had scattered lesions throughout the liver suspicious for metastatic disease with the largest 2.2 cm in the right lobe. The clinical picture was most suggestive of colon malignancy with liver metastasis. As the patient had presented with obstruction, he was taken to palliative surgery with resection of the colonic tumor. Operative note was reviewed. Palpation of the liver had indicated evidence of nodules. The patient denied any prior history of malignancy. He has never had colonoscopy before. No family history of the same. Review of Systems Constitutional: Reports poor appetite, Reports weight loss Eyes: denies blurred vision, denies pain Ears: deny: decreased hearing, ear discharge, earache, tinnitus Ears, nose, mouth and throat: Denies headache, Denies sore throat Cardiovascular: Denies chest pain, Denies shortness of breath Respiratory: Denies cough Gastrointestinal: Reports bloating, Reports change in bowel habits, Reports constipation, Reports nausea, Reports vomiting, Denies abdominal pain, Denies diarrhea Genitourinary: Reports as per HPI Musculoskeletal: Denies myalgias Integumentary: Denies pruritus, Denies rash Neurological: Denies numbness, Denies weakness Psychiatric: Denies anxiety, Denies depression Endocrine: Reports weight change Hematologic/Lymphatic: Reports as per HPI Physical Exam Vitals: Vital Signs Temp Pulse Pulse Resp BP Pulse Ox 11/04/18 15:00 97.8 F 87 16 112/70 92 L 11/04/18 08:23 99 11/04/18 07:00 97.8 F 90 14 135/90 100 11/04/18 01:05 98.0 F 110 H 18 118/69 95 11/03/18 21:23 92 124/76 97 11/03/18 21:08 90 125/77 96 11/03/18 20:53 89 129/79 99 11/03/18 20:38 89 122/74 97 11/03/18 20:23 89 121/74 97 11/03/18 20:08 89 121/75 99 11/03/18 19:53 89 124/73 100 11/03/18 19:52 98 11/03/18 19:38 85 122/79 11/03/18 19:23 98.9 F 86 121/72 99 11/03/18 18:17 81 18 114/66 94 L 11/03/18 18:02 82 16 113/63 97 11/03/18 17:47 81 18 129/73 98 11/03/18 17:32 86 18 145/78 97 11/03/18 17:11 97.3 F L 83 18 141/83 96 Intake and Output 11/04/18 11/04/18 11/04/18 06:59 14:59 22:59 Intake Total 296 Output Total 500 380 40 Balance -500 -84 -40 Intake: Oral 296 Output: Drainage 30 40 Lower Abdomen 30 40 Urine 500 350 Uretheral (Lyle) 350 Other: Voiding Method Indwelling Catheter Weight 83.915 kg - Constitutional General appearance: no acute distress - EENT Eyes: EOMI, PERRLA ENT: hearing grossly normal, normal oropharynx - Neck Neck: no lymphadenopathy - Respiratory Respiratory: bilateral: CTA - Cardiovascular Rhythm: regular Heart sounds: normal: S1, S2 - Gastrointestinal General gastrointestinal: absent bowel sounds, distended - Neurologic Neurologic: CNII-XII intact - Musculoskeletal Musculoskeletal: generalized weakness, strength equal bilaterally - Psychiatric Psychiatric: A&O x's 3, appropriate affect Results CBC & Chem 7: 11/04/18 09:38 11/04/18 09:38 Labs: Abnormal Lab Results - Last 24 Hours (Table) 11/03/18 11/04/1811/04/19 Range/Units 09:05 09:38 11:38 Sodium 136 L (137-145) mmol/L Creatinine 0.61 L (0.66-1.25) mg/dL Glucose 123 H (74-99) mg/dL POC Glucose (mg/dL) 109 H (75-99) mg/dL Iron 28 L (65-175) ug/dL Iron Saturation 10.26 L (15.00-50.00) Comments: Echocardiogram report reviewed Chest x-ray: report reviewed Abdominal x-ray: report reviewed CT scan - abdomen: report reviewed CT scan - pelvis: report reviewed Assessment and Plan (1) Colon cancer Narrative/Plan: The patient printed with small bowel obstruction due to colonic mass. He also appeared to have suspicious liver lesions. The clinical picture is most suggestive of a primary colon malignancy with metastatic disease to the liver. - The imaging studies, and operative findings as well as implications were discussed in detail with him. He was advised that generally in cases of suspected metastatic malignancy surgical removal of the primary tumor is thought to be avoided as it does not affect The course of the disease. However the patient had to have surgery as he had presented with obstruction. He was advised that the purpose of surgery is palliation of obstruction only. In his case it would also give us a diagnosis. Assuming that pathology confirms colon cancer, the patient appears to have stage IV disease at baseline with liver metastasis . He was advised that at this stage colon cancer is not considered curable. The mainstay of treatment would be systemic therapy with chemotherapy/immunotherapy with an objective of prolonging life and palliation of symptoms. Prognosis with or without treatment was also discussed At this time we would need to wait for the patient to recover from his surgery, which is usually a minimum of about 4 weeks plus, prior to starting any systemic therapy. Defer to the surgical service for postop care. We will follow-up on the pathology report becomes available to set up outpatient follow-up and treatment Current Visit: Yes Status: Acute Code(s): C18.9 - MALIGNANT NEOPLASM OF COLON, UNSPECIFIED SNOMED Code(s): 213108223 (2) Metastases to the liver Narrative/Plan: Even though the patient did not have a biopsy of the liver, the computed tomography scan, as well as intraoperative physical exam are highly suspicious for liver metastasis. Implications of the same As discussed above. If required, this can be worked up further with a PET scan on liver biopsy Current Visit: Yes Status: Acute Code(s): C78.7 - SECONDARY MALIG NEOPLASM OF LIVER AND INTRAHEPATIC BILE DUCT SNOMED Code(s): 95960090
[2018-11-03] MEDS: 0.9% NACL WITH KCL 20 MEQ/L 1,000 ML IV SCH (19:59)
[2018-11-03] MEDS: HEPARIN SODIUM,PORCINE 5,000 UNIT/ML 1 ML VIAL SQ SCH (20:27)
[2018-11-03] MEDS: ALVIMOPAN 12 MG CAPSULE PO SCH (21:36)
[2018-11-03] MEDS: FAMOTIDINE 20 MG/2 ML VIAL IV SCH (21:51)
[2018-11-03] MEDS: metroNIDAZOLE-NS PMX 500 MG in SALINE 1 100ML.BAG IVPB SCH (23:50)
[2018-11-04] MEDS: 0.9% NACL WITH KCL 20 MEQ/L 1,000 ML IV SCH ×3 (03:16→20:04)
--- NOTE | 2018-11-04 07:06 | P.PN ---
Progress Note - Text Anesthesia POD 644. Status Post sigmoid resection with colostomy under general endotracheal anesthesia with an epidrual catheter placed at T12 for post surgical pain releif. VAS (0, 3) with Ropivicaine 0.16 % and Dilaudid 20 mcg / cc running at 6 cc / hr. Lower extremity strength (4/4). No sedation. Site looks OK. Unfortunately sometime early this morning the epidural catheter injection port became detached from the catheter itself and has been laying in the bed clothes for an undetermined length of time. Therefore the catheter will be discontinued this morning and a band aid applied and alternative analgesia instituted.
[2018-11-04] MEDS: ALVIMOPAN 12 MG CAPSULE PO SCH ×2 (08:35→20:02)
[2018-11-04] MEDS: metroNIDAZOLE-NS PMX 500 MG in SALINE 1 100ML.BAG IVPB SCH ×3 (08:37→23:39)
[2018-11-04] MEDS: FAMOTIDINE 20 MG/2 ML VIAL IV SCH (08:41)
[2018-11-04] MEDS: HEPARIN SODIUM,PORCINE 5,000 UNIT/ML 1 ML VIAL SQ SCH ×2 (08:42→20:02)
[2018-11-04] MEDS ORDERED: HYDROcodone/APAP 5-325MG 1 EACH TAB PO PRN (09:04)
[2018-11-04] MEDS ORDERED: HYDROmorphone 1 MG/ML 1 ML SYRINGE IVP PRN (09:05)
[2018-11-04 10:34] LABS: Basophils # (A) 0.1 k/uL (0-0.2); Basophils % (A) 1 %; Eosinophils # (A) 0.1 k/uL (0-0.7); Eosinophils % (A) 1 %; HCT 45.2 % (39.0-53.0); HGB 15.1 gm/dL (13.0-17.5); Lymphocytes # (A) 1.1 k/uL (1.0-4.8); Lymphocytes % (A) 11 %; MCH 30.5 pg (25.0-35.0); MCHC 33.3 g/dL (31.0-37.0); MCV 91.6 fL (80.0-100.0); Mean Platelet Volume 7.8; Monocytes # (A) 0.5 k/uL (0-1.0); Monocytes % (A) 5 %; Neutrophils # (A) 7.6 k/uL (1.3-7.7); Neutrophils % (A) 81 %; Platelet Count 388 k/uL (150-450); RBC 4.93 m/uL (4.30-5.90); RDW 14.7 % (11.5-15.5); WBC 9.4 k/uL (3.8-10.6)
[2018-11-04 10:39] LABS: African American GFR (CKD) >90 (>60 ml/min/1.73 sqM); Anion Gap 9 mmol/L; Blood Urea Nitrogen 11 mg/dL (9-20); Calcium 8.7 mg/dL (8.4-10.2); Carbon Dioxide 22 mmol/L (22-30); Chloride 105 mmol/L (98-107); Glucose 123 mg/dL (74-99); Potassium 4.4 mmol/L (3.5-5.1); Sodium 136 mmol/L (137-145)
--- NOTE | 2018-11-04 11:22 | P.PN ---
Subjective Progress Note Date: 11/04/18 CHIEF COMPLAINT: Bowel obstruction HISTORY OF PRESENT ILLNESS: The patient is a 58 year old male who presented with acute abdominal distention with small bowel obstruction in a virgin abdomen, 11/02/18. CT of the abdomen and pelvis showed obstructive 8-cm sigmoid tumor causing large and small bowel obstruction. He is now status post open colectomy with descending colostomy, 11/03/2018, post-op day 1. His epidural was discontinued as it was accidentally pulled. He reports he feels well. No nausea and vomiting. In fact he is passing flatus from his ostomy bag with minimal liquid stool. He is hungry. Pain is controlled at the time of my evaluation. No fevers or chills. He wants to go home. ROS: No current chest pain. No dyspnea on exertion. No nasogastric tube. PHYSICAL EXAM: VITALS: Reviewed CONSTITUTIONAL: Well developed and in no acute distress. EYES: Conjuctivae without sclera icterus. Pupils are equally round and reactive to light. Extraocular movements grossly intact. Wears glasses. HEAD, EARS, NOSE, THROAT: Moist buccal mucosa. Head is atraumatic, normocephalic. Hears conversational speech. No nasal drainage. Nasogastric tube present with dark contents RESPIRATORY: Non-labored respirations and equal bilateral excursions. No gross wheezes. CARDIOVASCULAR: Extremities without moderate edema. Palpable 2+ radial pulses. ABDOMEN: PREVENA dressings intact. Moderate flatus and ostomy bag with serous fluid. GRZEGORZ serosanguineous. No cellulitis or infection. Soft, no peritonitis. Decreased abdominal distention. MUSCULOSKELETAL: Range of motion bilateral upper extremities within normal limits. Nail and fingers with good capillary refill. SKIN: Warm and well perfused with good skin turgor. NEUROLOGIC: Cranial nerves I through XII grossly intact. Sensation upper and extremities intact. No focal or lateralizing signs. PSYCH: Appropriate affect. Alert and oriented to person, place and time. CLINCAL LABS: WBC normal less than 10,000. Creatinine improved to less than 0.7 mg/dL. CEA tumor marker elevated pre-op. Iron studies low with normal Hgb. RADIOLOGY: No new studies ASSESSMENT: 1. Small bowel obstruction due to sigmoid colonic tumor 2. Large bowel obstruction due to sigmoid colonic tumor 3. Abnormal computed tomography scan metastases to liver 4. Palpable metastatic lesion to right inferior lobe of liver 5. Clinical sigmoid mesentery adenopathy from metastatic colon cancer, Stage 4 (T4, N2, M1-liver) PLAN: 1. Regular diet as has resumption of bowel function less than 24 hrs from his surgery. 2. Discontinue Lyle catheter as epidural has been discontinued per anesthesia without replacement. 3. GRZEGORZ teaching for preparation for home discharge in 24-48 hrs. 4. Ostomy care teaching for new ostomy. Dressings may be removed and replaced with OPTIFOAM 4 x 12 dressing for 3 to 5 days. 5. Patient felt safe to change ostomy including draining GRZEGORZ after discussion of home care option. 6. Patient is for cleared for discharge from a surgical standpoint once ostomy teaching including GRZEGORZ teaching addressed and urinating spontaneously. 7. Oncology workup including chemotherapy to be delayed at least 4-6 weeks after wound healing including results from pathology. 8. Will need outpatient biopsy of liver lesion Objective - Vital Signs Vital signs: Vital Signs Temp 97.8 F 11/04/18 07:00 Pulse 90 11/04/18 07:00 Resp 14 11/04/18 07:00 BP 135/90 11/04/18 07:00 Pulse Ox 99 11/04/18 08:23 Intake & Output 11/03/18 11/04/18 11/04/18 18:59 06:59 18:59 Intake Total 3250 Output Total 450 550 30 Balance 2800 -550 -30 Weight 83.915 kg Intake: IV 3250 Output: Gastric Drainage 200 Drainage 50 30 Lower Abdomen 50 30 Urine 200 500 Estimated Blood Loss 50 Other: Voiding Method Urinal Indwelling Catheter Indwelling Catheter - Labs CBC & Chem 7: 11/04/18 09:38 11/04/18 09:38 Labs: Abnormal Lab Results - Last 24 Hours (Table) 11/03/18 11/03/18 11/04/18 Range/Units 09:05 09:05 09:38 Sodium 136 L (137-145) mmol/L Creatinine 0.61 L (0.66-1.25) mg/dL Glucose 123 H (74-99) mg/dL Iron 28 L (65-175) ug/dL Iron Saturation 10.26 L (15.00-50.00) Carcinoembryonic Ag 5.6 H (0.0-4.9) ng/mL Assessment and Plan (1) Colon cancer Current Visit: Yes Status: Acute Code(s): C18.9 - MALIGNANT NEOPLASM OF COLON, UNSPECIFIED SNOMED Code(s): 704988419 (2) Metastases to the liver Current Visit: Yes Status: Acute Code(s): C78.7 - SECONDARY MALIG NEOPLASM OF LIVER AND INTRAHEPATIC BILE DUCT SNOMED Code(s): 14939187 (3) Abnormal CT of the abdomen Current Visit: Yes Status: Acute Code(s): R93.5 - ABN FINDINGS ON DX IMAGING OF ABD REGIONS, INC RETROPERITON SNOMED Code(s): 25410446301070477 (4) Large bowel obstruction Current Visit: Yes Status: Acute Code(s): K56.609 - UNSP INTESTNL OBST, UNSP TO PARTIAL VERSUS COMPLETE OBST SNOMED Code(s): 362137597
--- NOTE | 2018-11-04 11:33 | P.PN ---
Subjective Progress Note Date: 11/04/18 Principal diagnosis: Large bowel obstruction Patient was seen and examined. No acute events overnight. Patient reports abdominal pain at the site of incision. Pain is 8-10 out of 10 in severity. Passing gas. Tolerating clear liquid diet. He denies any chest pain, shortness of breath or palpitations. No nausea or vomiting. No fever or chills. Objective - Vital Signs Vital signs: Vital Signs Temp 97.8 F 11/04/18 07:00 Pulse 90 11/04/18 07:00 Resp 14 11/04/18 07:00 BP 135/90 11/04/18 07:00 Pulse Ox 99 11/04/18 08:23 Intake & Output 11/03/18 11/04/18 11/04/18 18:59 06:59 18:59 Intake Total 3250 Output Total 450 550 30 Balance 2800 -550 -30 Weight 83.915 kg Intake: IV 3250 Output: Gastric Drainage 200 Drainage 50 30 Lower Abdomen 50 30 Urine 200 500 Estimated Blood Loss 50 Other: Voiding Method Urinal Indwelling Catheter Indwelling Catheter - Exam General: [non toxic], [no distress], [appears at stated age] Derm: [warm], [dry] Head: [atraumatic], [normocephalic], [symmetric] Eyes: [EOMI], [no lid lag], [anicteric sclera] Mouth: [no lip lesion], [mucus membranes moist] Cardiovascular: [S1S2 reg], [no murmur], [positive DP pulse right lower extremity] Lungs: [CTA bilateral], [no rhonchi, no rales] , [no accessory muscle use] Abdominal: [Abdominal binder in place with dressing clean dry and intact], [tenderness around the site of incision], [no guarding], [no appreciable organomegaly], [decreased bowel sounds] Ext: [no gross muscle atrophy], [no edema], [no contractures], [left lower extremity amputation] Neuro: [no focal neuro deficits] Psych: [Alert and oriented 3] - Labs CBC & Chem 7: 11/04/18 09:38 11/04/18 09:38 Labs: Abnormal Lab Results - Last 24 Hours (Table) 11/03/18 11/03/18 11/04/18 Range/Units 09:05 09:05 09:38 Sodium 136 L (137-145) mmol/L Creatinine 0.61 L (0.66-1.25) mg/dL Glucose 123 H (74-99) mg/dL Iron 28 L (65-175) ug/dL Iron Saturation 10.26 L (15.00-50.00) Carcinoembryonic Ag 5.6 H (0.0-4.9) ng/mL Assessment and Plan Assessment: Assessment and Plan Small bowel obstruction Sigmoid mass Smoker Related to colon cancer with metastatic disease as seen on CT abdomen and pelvis. POD 1 of sigmoid resection. Plans: Transition to regular diet. Zofran as needed for nausea or vomiting. Continue normal saline at 75 mL per hour. Morphine as needed for severe pain. Follow surgery consultation. Follow Oncology recommendations for workup. As seen on CT abdomen and pelvis. AFP negative. CEA 5.6, elevated. Plans: Needs oncology Workup in the outpatient setting. Plans: Will offer nicotine patch if wanted. [Discussed with Dr. Angel, ostomy is working and patient is cleared for discharge. Will observe the patient overnight for pain control. Discussed findings of surgery and need for oncological workup in the outpatient setting. Likely DC tomorrow.]
[2018-11-04 11:40] LABS: Glucose,Whole Blood 109 mg/dL (75-99)
[2018-11-04] MEDS: KETOROLAC 30 MG/ML 1 ML VIAL IVP SCH ×3 (12:07→23:39)
[2018-11-04] MEDS: ONDANSETRON 4 MG/2 ML VIAL IVP PRN ×2 (15:25→23:43)
--- NOTE | 2018-11-04 15:29 | P.PN ---
Subjective Progress Note Date: 11/04/18 Principal diagnosis: Large Bowel Obstruction Status Post surgical intervention Objective - Vital Signs Vital signs: Vital Signs Temp 97.8 F 11/04/18 15:00 Pulse 87 11/04/18 15:00 Resp 16 11/04/18 15:00 BP 112/70 11/04/18 15:00 Pulse Ox 92 L 11/04/18 15:00 Intake & Output 11/03/18 11/04/18 11/04/18 18:59 06:59 18:59 Intake Total 3250 296 Output Total 450 550 380 Balance 2800 -550 -84 Weight 83.915 kg 83.915 kg Intake: IV 3250 Oral 296 Output: Gastric Drainage 200 Drainage 50 30 Lower Abdomen 50 30 Urine 200 500 350 Uretheral (Lyle) 350 Estimated Blood Loss 50 Other: Voiding Method Urinal Indwelling Catheter Indwelling Catheter - Exam Gen: Alert and Oriented, NAD Head: NCNT Neck Supple Heart RRR Lungs No increased effort CTA B Abdomen:evidence of surgical intervention Ext: No Rash, No Edema, Equal Strength Psych: Calm and Coroperative Neuro: No Focal Deficits Noted. - Labs CBC & Chem 7: 11/04/18 09:38 11/04/18 09:38 Labs: Abnormal Lab Results - Last 24 Hours (Table) 11/03/18 11/03/18 11/04/18 Range/Units 09:05 09:05 09:38 Sodium 136 L (137-145) mmol/L Creatinine 0.61 L (0.66-1.25) mg/dL Glucose 123 H (74-99) mg/dL POC Glucose (mg/dL) (75-99) mg/dL Iron 28 L (65-175) ug/dL Iron Saturation 10.26 L (15.00-50.00) Carcinoembryonic Ag 5.6 H (0.0-4.9) ng/mL 11/04/18 Range/Units 11:38 Sodium (137-145) mmol/L Creatinine (0.66-1.25) mg/dL Glucose (74-99) mg/dL POC Glucose (mg/dL) 109 H (75-99) mg/dL Iron (65-175) ug/dL Iron Saturation (15.00-50.00) Carcinoembryonic Ag (0.0-4.9) ng/mL Assessment and Plan Plan: Assessment and recommendations: Large Bowel Obstruction: - Status POst sigmoid resection. - Await Path for further recs - Await patient to recover after surgery Physician Attest: I have completed the full history and physcial and developed the above impression and plan and agree with dictation by Oralia Varela. Dictated as a scribe
[2018-11-04 16:59] LABS: Glucose,Whole Blood 138 mg/dL (75-99)
[2018-11-04] MEDS: FAMOTIDINE 20 MG TAB PO SCH (20:02)
[2018-11-04] MEDS: METOCLOPRAMIDE 5 MG/ML 2 ML VIAL IVP PRN (20:02)
[2018-11-04 20:26] LABS: Glucose,Whole Blood 134 mg/dL (75-99)
[2018-11-05] MEDS: 0.9% NACL WITH KCL 20 MEQ/L 1,000 ML IV SCH ×3 (04:03→20:24)
[2018-11-05] MEDS: METOCLOPRAMIDE 5 MG/ML 2 ML VIAL IVP PRN (04:03)
[2018-11-05] MEDS: KETOROLAC 30 MG/ML 1 ML VIAL IVP SCH ×3 (05:19→17:17)
[2018-11-05 07:00] LABS: Glucose,Whole Blood 114 mg/dL (75-99)
[2018-11-05 07:11] LABS: Basophils % (A) 1 %; Eosinophils # (A) 0.1 k/uL (0-0.7); Eosinophils % (A) 1 %; HCT 38.4 % (39.0-53.0); HGB 13.1 gm/dL (13.0-17.5); Lymphocytes # (A) 0.7 k/uL (1.0-4.8); Lymphocytes % (A) 13 %; MCH 30.7 pg (25.0-35.0); MCHC 34.2 g/dL (31.0-37.0); MCV 89.6 fL (80.0-100.0); Mean Platelet Volume 7.5; Monocytes # (A) 0.3 k/uL (0-1.0); Monocytes % (A) 6 %; Neutrophils # (A) 3.9 k/uL (1.3-7.7); Neutrophils % (A) 77 %; Platelet Count 361 k/uL (150-450); RBC 4.29 m/uL (4.30-5.90); RDW 14.4 % (11.5-15.5); WBC 5.1 k/uL (3.8-10.6)
[2018-11-05 07:24] LABS: African American GFR (CKD) >90 (>60 ml/min/1.73 sqM); Anion Gap 5 mmol/L; Blood Urea Nitrogen 16 mg/dL (9-20); Calcium 8.7 mg/dL (8.4-10.2); Carbon Dioxide 29 mmol/L (22-30); Chloride 102 mmol/L (98-107); Glucose 115 mg/dL (74-99); Potassium 4.1 mmol/L (3.5-5.1); Sodium 136 mmol/L (137-145)
[2018-11-05] MEDS: HEPARIN SODIUM,PORCINE 5,000 UNIT/ML 1 ML VIAL SQ SCH ×2 (08:23→20:24)
[2018-11-05] MEDS: FAMOTIDINE 20 MG TAB PO SCH ×2 (08:24→20:23)
[2018-11-05] MEDS: metroNIDAZOLE-NS PMX 500 MG in SALINE 1 100ML.BAG IVPB SCH ×2 (08:24→17:17)
[2018-11-05] MEDS: ALVIMOPAN 12 MG CAPSULE PO SCH ×2 (08:24→20:23)
--- NOTE | 2018-11-05 09:49 | P.PN ---
Subjective Progress Note Date: 11/05/18 Principal diagnosis: Colonic obstruction Patient having some urinary retention issues. Still nauseated. Occasional episodes of vomiting. T-max 99.1. White blood cell count 5.1. Ostomy is putting out stool. Objective - Vital Signs Vital signs: Vital Signs Temp 98.9 F 11/05/18 08:20 Pulse 86 11/05/18 08:20 Resp 16 11/05/18 08:20 BP 150/86 11/05/18 08:20 Pulse Ox 94 L 11/05/18 08:20 Intake & Output 11/04/18 11/05/18 11/05/18 18:59 06:59 18:59 Intake Total 592 Output Total 420 510 30 Balance 172 -510 -30 Weight 83.915 kg Intake: Oral 592 Output: Drainage 70 110 30 Lower Abdomen 70 110 30 Urine 350 400 Uretheral (Lyle) 350 400 Other: Voiding Method Indwelling Catheter - Exam Abdomen: Soft, mild distention, dressing clean and dry, ostomy functioning, mild tenderness, GRZEGORZ serosanguineous - Labs CBC & Chem 7: 11/05/18 06:06 11/05/18 06:06 Labs: Abnormal Lab Results - Last 24 Hours (Table) 11/04/18 11/04/18 11/04/18 Range/Units 09:38 11:38 16:57 RBC (4.30-5.90) m/uL Hct (39.0-53.0) % Lymphocytes # (1.0-4.8) k/uL Sodium 136 L (137-145) mmol/L Creatinine 0.61 L (0.66-1.25) mg/dL Glucose 123 H (74-99) mg/dL POC Glucose (mg/dL) 109 H 138 H (75-99) mg/dL 11/04/18 11/05/18 11/05/18 Range/Units 20:24 06:06 06:06 RBC 4.29 L (4.30-5.90) m/uL Hct 38.4 L (39.0-53.0) % Lymphocytes # 0.7 L (1.0-4.8) k/uL Sodium 136 L (137-145) mmol/L Creatinine 0.56 L (0.66-1.25) mg/dL Glucose 115 H (74-99) mg/dL POC Glucose (mg/dL) 134 H (75-99) mg/dL 11/05/18 Range/Units 06:48 RBC (4.30-5.90) m/uL Hct (39.0-53.0) % Lymphocytes # (1.0-4.8) k/uL Sodium (137-145) mmol/L Creatinine (0.66-1.25) mg/dL Glucose (74-99) mg/dL POC Glucose (mg/dL) 114 H (75-99) mg/dL Assessment and Plan (1) Large bowel obstruction Narrative/Plan: Continue clear liquids for now. Ambulate. Monitor urine output. Current Visit: Yes Status: Acute Code(s): K56.609 - UNSP INTESTNL OBST, UNSP TO PARTIAL VERSUS COMPLETE OBST SNOMED Code(s): 221400491
[2018-11-05 11:24] LABS: Glucose,Whole Blood 104 mg/dL (75-99)
--- NOTE | 2018-11-05 11:26 | P.PN ---
Subjective Progress Note Date: 11/05/18 Principal diagnosis: Abdominal pain Patient was seen and examined. No acute events overnight. Patient having good amount of stool in ostomy bag. He complains of nausea and episodes of vomiting overnight and today. Abdominal pain at the site of incision is well-controlled with current pain medication. He denies any chest pain, shortness of breath or palpitations. Objective - Vital Signs Vital signs: Vital Signs Temp 98.9 F 11/05/18 08:20 Pulse 86 11/05/18 08:20 Resp 16 11/05/18 08:20 BP 150/86 11/05/18 08:20 Pulse Ox 94 L 11/05/18 08:20 Intake & Output 11/04/18 11/05/18 11/05/18 18:59 06:59 18:59 Intake Total 592 Output Total 420 510 30 Balance 172 -510 -30 Weight 83.915 kg Intake: Oral 592 Output: Drainage 70 110 30 Lower Abdomen 70 110 30 Urine 350 400 Uretheral (Lyle) 350 400 Other: Voiding Method Indwelling Catheter - Exam General: [non toxic], [no distress], [appears at stated age] Derm: [warm], [dry] Head: [atraumatic], [normocephalic], [symmetric] Eyes: [EOMI], [no lid lag], [anicteric sclera] Mouth: [no lip lesion], [mucus membranes moist] Cardiovascular: [S1S2 reg], [no murmur], [positive DP pulse right lower extremity] Lungs: [CTA bilateral], [no rhonchi, no rales] , [no accessory muscle use] Abdominal: [Abdominal binder in place with dressing clean dry and intact, GRZEGORZ draining serosanguineous fluid, ostomy with stool], [tenderness around the site of incision], [no guarding], [no appreciable organomegaly], [decreased bowel sounds] Ext: [no gross muscle atrophy], [no edema], [no contractures], [left lower extremity amputation] Neuro: [no focal neuro deficits] Psych: [Alert and oriented 3] - Labs CBC & Chem 7: 11/05/18 06:06 11/05/18 06:06 Labs: Abnormal Lab Results - Last 24 Hours (Table) 11/04/18 11/04/18 11/04/18 Range/Units 11:38 16:57 20:24 RBC (4.30-5.90) m/uL Hct (39.0-53.0) % Lymphocytes # (1.0-4.8) k/uL Sodium (137-145) mmol/L Creatinine (0.66-1.25) mg/dL Glucose (74-99) mg/dL POC Glucose (mg/dL) 109 H 138 H 134 H (75-99) mg/dL 11/05/18 11/05/18 11/05/18 Range/Units 06:06 06:06 06:48 RBC 4.29 L (4.30-5.90) m/uL Hct 38.4 L (39.0-53.0) % Lymphocytes # 0.7 L (1.0-4.8) k/uL Sodium 136 L (137-145) mmol/L Creatinine 0.56 L (0.66-1.25) mg/dL Glucose 115 H (74-99) mg/dL POC Glucose (mg/dL) 114 H (75-99) mg/dL 11/05/18 Range/Units 11:07 RBC (4.30-5.90) m/uL Hct (39.0-53.0) % Lymphocytes # (1.0-4.8) k/uL Sodium (137-145) mmol/L Creatinine (0.66-1.25) mg/dL Glucose (74-99) mg/dL POC Glucose (mg/dL) 104 H (75-99) mg/dL Assessment and Plan Assessment: Assessment and Plan Small bowel obstruction Sigmoid mass Smoker Related to colon cancer with metastatic disease as seen on CT abdomen and pelvis. POD 2 of sigmoid resection. Plans: Clear liquid diet and advance as tolerated. Zofran as needed for nausea or vomiting. Continue normal saline at 75 mL per hour. Morphine as needed for severe pain. Follow surgery con sultation. Follow Oncology recommendations for workup. As seen on CT abdomen and pelvis. AFP negative. CEA 5.6, elevated. Plans: Needs oncology Workup in the outpatient setting. Plans: Will offer nicotine patch if wanted. [Patient with nausea and inability to tolerate oral. Will observe the patient overnight for pain control. Discussed findings of surgery and need for oncological workup in the outpatient setting. Likely DC in 1-2 days.]
[2018-11-05] MEDS: CALCIUM CARBONATE 500 MG CHEWABLE PO PRN (14:31)
[2018-11-06] MEDS: KETOROLAC 30 MG/ML 1 ML VIAL IVP SCH ×5 (00:11→23:03)
[2018-11-06] MEDS: metroNIDAZOLE-NS PMX 500 MG in SALINE 1 100ML.BAG IVPB SCH ×4 (00:12→23:04)
[2018-11-06] MEDS: 0.9% NACL WITH KCL 20 MEQ/L 1,000 ML IV SCH ×3 (05:06→19:50)
[2018-11-06 06:55] LABS: Basophils % (A) 0 %; Eosinophils # (A) 0.2 k/uL (0-0.7); Eosinophils % (A) 6 %; HCT 36.2 % (39.0-53.0); HGB 12.2 gm/dL (13.0-17.5); Lymphocytes # (A) 0.9 k/uL (1.0-4.8); Lymphocytes % (A) 22 %; MCH 30.8 pg (25.0-35.0); MCHC 33.8 g/dL (31.0-37.0); MCV 91.1 fL (80.0-100.0); Mean Platelet Volume 7.5; Monocytes # (A) 0.3 k/uL (0-1.0); Monocytes % (A) 8 %; Neutrophils # (A) 2.5 k/uL (1.3-7.7); Neutrophils % (A) 61 %; Platelet Count 344 k/uL (150-450); RBC 3.97 m/uL (4.30-5.90); RDW 14.4 % (11.5-15.5); WBC 4.2 k/uL (3.8-10.6)
[2018-11-06 07:05] LABS: African American GFR (CKD) >90 (>60 ml/min/1.73 sqM); Anion Gap 6 mmol/L; Blood Urea Nitrogen 9 mg/dL (9-20); Calcium 8.4 mg/dL (8.4-10.2); Carbon Dioxide 24 mmol/L (22-30); Chloride 105 mmol/L (98-107); Glucose 82 mg/dL (74-99); Sodium 135 mmol/L (137-145)
[2018-11-06] MEDS: ALVIMOPAN 12 MG CAPSULE PO SCH ×2 (08:01→19:54)
[2018-11-06] MEDS: FAMOTIDINE 20 MG TAB PO SCH ×2 (08:01→19:54)
[2018-11-06] MEDS: HEPARIN SODIUM,PORCINE 5,000 UNIT/ML 1 ML VIAL SQ SCH ×2 (08:01→19:50)
--- NOTE | 2018-11-06 10:35 | P.PN ---
Subjective Progress Note Date: 11/06/18 Principal diagnosis: Colonic obstruction Patient complaining of reflux today. No vomiting. Feels less bloated. Still having ostomy function. Would like to try more to eat today. White blood cell count normal. Objective - Vital Signs Vital signs: Vital Signs Temp 98.5 F 11/06/18 07:00 Pulse 70 11/06/18 07:00 Resp 16 11/06/18 07:00 BP 140/78 11/06/18 07:00 Pulse Ox 95 11/06/18 07:00 Intake & Output 11/05/18 11/06/18 11/06/18 18:59 06:59 18:59 Intake Total 250 240 Output Total 30 560 40 Balance -30 -310 200 Intake: Oral 250 240 Output: Drainage 30 60 40 Lower Abdomen 30 60 40 Urine 500 Other: Voiding Method Toilet Urinal - Exam Abdomen: Soft, minimal distention, dressing clean and dry, mild tenderness - Labs CBC & Chem 7: 11/06/18 06:17 11/06/18 06:17 Labs: Abnormal Lab Results - Last 24 Hours (Table) 11/05/18 11/06/18 11/06/18 Range/Units 11:07 06:17 06:17 RBC 3.97 L (4.30-5.90) m/uL Hgb 12.2 L (13.0-17.5) gm/dL Hct 36.2 L (39.0-53.0) % Lymphocytes # 0.9 L (1.0-4.8) k/uL Sodium 135 L (137-145) mmol/L Creatinine 0.53 L (0.66-1.25) mg/dL POC Glucose (mg/dL) 104 H (75-99) mg/dL Assessment and Plan (1) Large bowel obstruction Narrative/Plan: We'll add Protonix IV. Increase diet to full liquids. Possible discharge tomorrow. Current Visit: Yes Status: Acute Code(s): K56.609 - UNSP INTESTNL OBST, UNSP TO PARTIAL VERSUS COMPLETE OBST SNOMED Code(s): 705679112
--- NOTE | 2018-11-06 11:12 | P.PN ---
Subjective Progress Note Date: 11/06/18 Principal diagnosis: Large bowel obstruction Patient was seen and examined. No acute events overnight. Patient reports frequent episodes of nausea and vomiting along with epigastric discomfort that he relates to heartburn. He denies any chest pain, shortness of breath or palp itations. Ostomy producing stool output. Objective - Vital Signs Vital signs: Vital Signs Temp 98.5 F 11/06/18 07:00 Pulse 70 11/06/18 07:00 Resp 16 11/06/18 07:00 BP 140/78 11/06/18 07:00 Pulse Ox 95 11/06/18 07:00 Intake & Output 11/05/18 11/06/18 11/06/18 18:59 06:59 18:59 Intake Total 250 240 Output Total 30 560 40 Balance -30 -310 200 Intake: Oral 250 240 Output: Drainage 30 60 40 Lower Abdomen 30 60 40 Urine 500 Other: Voiding Method Toilet Urinal - Exam General: [non toxic], [no distress], [appears at stated age] Derm: [warm], [dry] Head: [atraumatic], [normocephalic], [symmetric] Eyes: [EOMI], [no lid lag], [anicteric sclera] Mouth: [no lip lesion], [mucus membranes moist] Cardiovascular: [S1S2 reg], [no murmur], [positive DP pulse right lower extremity] Lungs: [CTA bilateral], [no rhonchi, no rales] , [no accessory muscle use] Abdominal: [GRZEGORZ draining serosanguineous fluid, ostomy with stool, slightly distended], [no tenderness to palpation], [no guarding], [no appreciable organomegaly], [decreased bowel sounds] Ext: [no gross muscle atrophy], [no edema], [no contractures], [left lower extremity amputation] Neuro: [no focal neuro deficits] Psych: [Alert and oriented 3] - Labs CBC & Chem 7: 11/06/18 06:17 11/06/18 06:17 Labs: Abnormal Lab Results - Last 24 Hours (Table) 11/05/18 11/06/18 11/06/18 Range/Units 11:07 06:17 06:17 RBC 3.97 L (4.30-5.90) m/uL Hgb 12.2 L (13.0-17.5) gm/dL Hct 36.2 L (39.0-53.0) % Lymphocytes # 0.9 L (1.0-4.8) k/uL Sodium 135 L (137-145) mmol/L Creatinine 0.53 L (0.66-1.25) mg/dL POC Glucose (mg/dL) 104 H (75-99) mg/dL Assessment and Plan Assessment: Assessment and Plan Small bowel obstruction Sigmoid mass Smoker Related to colon cancer with metastatic disease as seen on CT abdomen and pelvis. POD 3 of sigmoid resection. Plans: Full liquid diet and advance as tolerated. Zofran as needed for nausea or vomiting. Continue normal saline at 75 mL per hour. Morphine as needed for severe pain. Follow surgery consultation. Follow Oncology recommendations for workup. As seen on CT abdomen and pelvis. AFP negative. CEA 5.6, elevated. Plans: Needs oncology Workup in the outpatient setting. Plans: Will offer nicotine patch if wanted. [Patient with nausea and inability to tolerate oral. Will observe the patient for 1 more day as per surgery. Possible DC tomorrow.]
[2018-11-06] MEDS: CALCIUM CARBONATE 500 MG CHEWABLE PO PRN (19:50)
[2018-11-07] MEDS: KETOROLAC 30 MG/ML 1 ML VIAL IVP SCH ×2 (05:01→12:06)
[2018-11-07] MEDS: 0.9% NACL WITH KCL 20 MEQ/L 1,000 ML IV SCH (05:03)
[2018-11-07 07:49] VITALS: BP 138/80; PULSE 66; RESP 16; TEMP 98.1
[2018-11-07] MEDS: HEPARIN SODIUM,PORCINE 5,000 UNIT/ML 1 ML VIAL SQ SCH (08:42)
[2018-11-07] MEDS: ALVIMOPAN 12 MG CAPSULE PO SCH (08:47)
[2018-11-07] MEDS: FAMOTIDINE 20 MG TAB PO SCH (08:47)
[2018-11-07] MEDS: metroNIDAZOLE-NS PMX 500 MG in SALINE 1 100ML.BAG IVPB SCH (08:47)
[2018-11-07] MEDS ORDERED: PANTOPRAZOLE 40 MG/10 ML VIAL IVP SCH (09:00)
--- NOTE | 2018-11-07 09:56 | P.DS ---
Providers Date of admission: 11/02/18 15:14 Expected date of discharge: 11/07/18 Attending physician: Loan Adhikari MD Consults: 11/02/18 15:00 Consult Physician Urgent Consulting Provider: Debra Angel Consult Reason/Comments: Small bowel obstruction Do you want consulting provider notified?: Yes 11/03/18 08:00 Consult Physician Urgent Consulting Provider: Lucas Loredo Consult Reason/Comments: Oncology workup Do you want consulting provider notified?: Yes Primary care physician: [facility] Course: 58-year-old male with long history of smoking presents to the ED for abdominal pain and bloating. Patient reports bloating in his abdomen that his pain on and off since July of this year. More recently, patient has experienced bloatingthat has been progressively worsening over the last couple of days. He reports lower abdominal pain bilaterally. Pain is 7-8 out of 10 in severity. Patient is unable to describe the characteristics of this pain. Pain is aggravated with meals with no alleviating factors. Patient also reports some episodes of nonbilious nonbloody nausea and vomiting. He denies any headache or lower extremity edema. He denies any fever or chills. He denies any cough, chest pain, shortness of breath, changes in urination. Patient reports a history of constipation and difficulties moving his bowels. Patient also reports decreased appetite at this time. He denies any dizziness, numbness/weakness/tingling of the extremities. In the ED, vital signs are stable. CBC was unremarkable. CMP showed a sodium 132. Lipase was negative. KUB showed small bowel obstruction. NG tube was placed in the ED and patient was admitted for medical management with surgery on consultation. General surgery was consulted and recommended CT of the abdomen and pelvis. CT showed masslike area within the mid descending colon causing colonic and small bowel obstruction, metastatic lesions to the liver, possible lytic lesions. General surgery recommended surgery. Patient underwent colonic decompression, sigmoid colectomy, descending colostomy creation on 11/03/2018. Biopsy was obtained and pending at the time of discharge. Patient's ostomy started working on POD 1. He was given an epidural for pain control which was discontinued by anesthesia on POD 1. He had some difficulties tolerating diet due to nausea and vomiting. Patient was eventually able to tolerate his diet and was cleared for discharge with GRZEGORZ teaching and ostomy teaching. Patient was seen and examined prior to discharge. No acute events overnight. Patient reports well-controlled pain with current pain medication. Patient reports never having colonoscopy. He denies any nausea or vomiting. No fever or chills. Tolerating diet well. General: [non toxic], [no distress], [appears at stated age] Derm: [warm], [dry] Head: [atraumatic], [normocephalic], [symmetric] Eyes: [EOMI], [no lid lag], [anicteric sclera] Mouth: [no lip lesion], [mucus membranes moist] Cardiovascular: [S1S2 reg], [no murmur], [positive DP pulse right lower extremity] Lungs: [CTA bilateral], [no rhonchi, no rales] , [no accessory muscle use] Abdominal: [GRZEGORZ draining serosanguineous fluid, ostomy with stool, slightly distended], [no tenderness to palpation], [no guarding], [no appreciable organomegaly], [decreased bowel sounds] Ext: [no gross muscle atrophy], [no edema], [no contractures], [left lower extremity amputation] Neuro: [no focal neuro deficits] Psych: [Alert and oriented 3] Assessment and Plan Small bowel obstruction Sigmoid mass Smoker Related to colon cancer with metastatic disease as seen on CT abdomen and pelvis. POD 4 of sigmoid resection. Plans: Tolerating full liquid diet. Zofran as needed for nausea or vomiting. Continue normal saline at 75 mL per hour. Morphine as needed for severe pain. Follow surgery consultation. Follow Oncology recommendations for workup. As seen on CT abdomen and pelvis. AFP negative. CEA 5.6, elevated. Plans: Needs oncology Workup in the outpatient setting. Plans: Will offer nicotine patch if wanted. [Pain well-controlled. Tolerating diet well. Had a long discussion with patient regarding follow-up with oncology to obtain pathology results. He will discuss further management and treatment options with oncology during that time. Patient has a PCP out of [facility] that he has seen only once. Advised to follow- up with PCP.] Pertinent Studies: KUB, CT abdomen and pelvis Procedures: Colonic decompression, ostomy formation, sigmoid colectomy Patient Condition at Discharge: Stable Plan - Discharge Summary Discharge Rx Participant: No New Discharge Prescriptions: New RX: Ibuprofen [Motrin] 600 mg PO Q8HR PRN #30 tab PRN Reason: Pain RX: Alvimopan [Entereg] 12 mg PO BID #8 capsule RX: HYDROcodone/APAP 5-325MG [[place] 5-325] 1 each PO Q4HR PRN #18 tab PRN Reason: Pain RX: Famotidine [Pepcid] 20 mg PO BID #60 tab Discharge Medication List RX: Ibuprofen [Motrin] 600 mg PO Q8HR PRN #30 tab 11/04/18 [Rx] RX: Alvimopan [Entereg] 12 mg PO BID #8 capsule 11/07/18 [Rx] RX: Famotidine [Pepcid] 20 mg PO BID #60 tab 11/07/18 [Rx] RX: HYDROcodone/APAP 5-325MG [[place] 5-325] 1 each PO Q4HR PRN #18 tab 11/07/18 [Rx] Follow up Appointment(s)/Referral(s): Liseth Daniels, [facility] [REFERRING] - 1-2 days Debra Angel MD [STAFF PHYSICIAN] - 11/08/18 [facility], [NON-STAFF] - Kaveh Amaya MD [STAFF PHYSICIAN] - 1 Week Patient Instructions/Handouts: Colostomy Care (DC), Colectomy (GEN), Colectomy Diet (DC), Colostomy Creation (DC) Activity/Diet/Wound Care/Special Instructions: Prescription sent to local pharmacy. No lifting over 4 pounds in 4 weeks, 12/04/2018. May shower but protect GRZEGORZ drain. Follow-up PCP within 1-2 days of discharge. Follow-up with general surgery with the appointment given to you. Follow up with oncology within 1 week of discharge. Take all medications as advised. Discharge Disposition: HOME WITH HOME HEALTH SERVICES
--- NOTE | 2018-11-07 12:01 | P.PN ---
Subjective Progress Note Date: 11/07/18 Principal diagnosis: Colonic obstruction Patient doing well today. Tolerating full liquids. He is quite anxious to go home at this time. He is afebrile. Good bowel function. Objective - Vital Signs Vital signs: Vital Signs Temp 98.1 F 11/07/18 07:00 Pulse 66 11/07/18 07:00 Resp 16 11/07/18 07:00 BP 138/80 11/07/18 07:00 Pulse Ox 96 11/07/18 07:00 Intake & Output 11/06/18 11/07/18 11/07/18 18:59 06:59 18:59 Intake Total 240 118 Output Total 40 1595 40 Balance 200 -1595 78 Intake: Oral 240 118 Output: Drainage 40 95 40 Lower Abdomen 40 95 40 Urine 1500 Other: Voiding Method Toilet Urinal - Exam Abdomen: Soft, minimal distention, nontender, dressing clean and dry, ostomy functioning - Labs CBC & Chem 7: 11/06/18 06:17 11/06/18 06:17 Assessment and Plan (1) Large bowel obstruction Narrative/Plan: Gradually advance diet post discharge. May discharge from my standpoint. Follow-up with Dr. Clifton within 1 week. Home care for ostomy supplies. Current Visit: Yes Status: Acute Code(s): K56.609 - UNSP INTESTNL OBST, UNSP TO PARTIAL VERSUS COMPLETE OBST SNOMED Code(s): 533959479
== END 2018-11-07 12:48 | disposition home health service (06) | DRG 330 ==
LOC: EC 13:37 → 4MS4W 15:14 → 4SSUR 11-03 15:30
PROVIDERS: ADMIT Family Medicine; ATTEND Family Medicine
PROC: 0D9670Z Drainage of Stomach with Drainage Device, Via Natural or Artificial Opening (ICD-10-PCS; principal; 2018-11-02)
PROC: 0D1M0Z4 Bypass Descending Colon to Cutaneous, Open Approach (ICD-10-PCS; 2018-11-03)
PROC: 0DTN0ZZ Resection of Sigmoid Colon, Open Approach (ICD-10-PCS; 2018-11-03)
PROC: 0DCH0ZZ Extirpation of Matter from Cecum, Open Approach (ICD-10-PCS; 2018-11-03)
DX: C18.7 Malignant neoplasm of sigmoid colon (principal); C78.7 Secondary malignant neoplasm of liver and intrahepatic bile duct; C79.51 Secondary malignant neoplasm of bone; Q43.8 Other specified congenital malformations of intestine; R13.10 Dysphagia, unspecified; K57.30 Diverticulosis of large intestine without perforation or abscess without bleeding; R59.0 Localized enlarged lymph nodes; R33.9 Retention of urine, unspecified; K21.9 Gastro-esophageal reflux disease without esophagitis; F10.10 Alcohol abuse, uncomplicated; F17.200 Nicotine dependence, unspecified, uncomplicated; Z71.6 Tobacco abuse counseling; Z89.432 Acquired absence of left foot; Z83.3 Family history of diabetes mellitus
CPT/HCPCS: 36415; 74018; 74177; 80048; 80053; 81001; 82105; 82150; 82378; 82728; 83540; 83550; 83690; 85025; 85610; 86850; 86900; 86901; 88309; 93005; 93306; 94760; 99285

== ENCOUNTER → 2018-11-21 | Outpatient (CLI) | payer OTHER ==
[~2018-11-21] MED LIST: SODIUM CHLORIDE 0.9% 500 ML 500 ML in EMPTY BAG 1 BAG IV PRN
[2018-11-21 09:10] VITALS: BP 123/79; PULSE 74; RESP 16; TEMP 97.8
== END ==
LOC: PROCWHC3 08:46
PROVIDERS: ATTEND Surgery Plastic and Reconstructive Surgery
DX: K57.32 Diverticulitis of large intestine without perforation or abscess without bleeding (principal)
CPT/HCPCS: 99213

== ENCOUNTER → 2018-12-13 | Outpatient (CLI) | payer OTHER ==
--- NOTE | 2018-12-13 14:22 | CT ---
EXAMINATION TYPE: CT chest w con DATE OF EXAM: 12/13/2018 COMPARISON: None HISTORY: 58-year-old male Colon Ca TECHNIQUE: Contiguous axial scanning of the chest after the administration of 100 mL of Isovue 300. Coronal/sagittal reconstructions performed. CT DLP: 465mGycm. Automatic exposure control utilized for a dose reduction. FINDINGS: Heart normal size without pericardial effusion. Mild coronary vessel calcifications. Aorta normal caliber with conventional arch vessel branching anatomy. Prominent but not enlarged 1.1 cm left axillary lymph node. Scattered nonenlarged mediastinal lymph n odes though mildly enlarged in the AP window region measuring 1.2 cm, nonspecific. Biapical pleural parenchymal scarring with mild centrilobular emphysema. No consolidation or pleural effusion. In the visualized upper abdomen, 4 discrete, enlarging liver lesions are demonstrated, largest measur ing 3.3 and 2.9 cm on the right versus 2.2 and 1.9 cm, previously. One in the central mid liver measu ring 2.2 cm, axial image 61, may be new. Partially visualized cortical hypodensity lateral right kidn ey, probably a cyst. Bones: Old healed right-sided rib fracture deformities. Moderate degenerative disc disease and anteri or endplate spondylosis mid to lower thoracic spine. Osteopenia. IMPRESSION: 1. COPD with mild emphysema. 2. A mildly enlarged 1.2 cm AP window lymph node in the mediastinum is nonspecific. Probably reactive /post inflammatory. Follow-up recommended to exclude metastatic lymph node. 3. Four enlarging hepatic lesions are seen measuring up to 3.3 cm versus 2.2 cm, previously. One 2.2 cm lesion may be new.
--- NOTE | 2018-12-14 15:01 | MR ---
EXAMINATION TYPE: MR abdomen wo/w con DATE OF EXAM: 12/13/2018 COMPARISON: CT 11/02/2018 HISTORY: 58-year-old male Colon Ca, Observe for Mets Technique: Multiplanar, multisequence images of the abdomen were obtained before and after administra tion of 7.5 mL intravenous Gadavist gadolinium contrast. FINDINGS: Heart upper limits of normal in size without pericardial effusion. No pleural effusion. 4 hypovascular hepatic lesions are confirmed as seen on CT the same day. Largest inferior and medial right liver lobe measures 3.6 cm versus 2.5 cm, previously. A smaller, more posterior lesion measures 1.7 cm versus 1.3 cm. Anterior segment 5 right liver lobe measures 3.1 cm versus 1.9 cm, previously. A 1.8 cm lesion centrally in the liver is new. Portal venous system is patent. No biliary ductal dilatation. 2.9 cm ovoid lesion lower pole right kidney is T1 bright and T2 dark suggesting a hemorrhagic or prot einaceous cyst. Otherwise, bilateral benign renal cysts are present, measuring up to 2.0 cm and the r ight and 2.2 cm and the left. Gallbladder, adrenal glands, spleen, and pancreas appear within normal limits. No upper abdominal lymphadenopathy, ascites fluid, or gross bowel abnormality seen. Post surgical changes along the supraumbilical midline. There is a left mid abdominal ostomy. IMPRESSION: 1. As seen on CT chest of the same day, 4 hepatic metastases are confirmed. 3 in the right liver lobe have increased in size, largest measuring 3.6 cm versus 2.5 cm, previously. 2. The fourth is a small 1.8 cm lesion centrally in the mid liver and is new. 3. Post surgical change along the supraumbilical midline and a left mid abdominal ostomy.
== END | disposition home or self-care (01) ==
LOC: RADCTMAIN 10:57
PROVIDERS: ATTEND Internal Medicine Hematology & Oncology
DX: C78.7 Secondary malignant neoplasm of liver and intrahepatic bile duct (principal); C18.7 Malignant neoplasm of sigmoid colon; Z93.8 Other artificial opening status; Z98.890 Other specified postprocedural states; J43.2 Centrilobular emphysema; R59.9 Enlarged lymph nodes, unspecified
CPT/HCPCS: 71260; 74183; A9585; Q9967

== ENCOUNTER 2018-12-15 10:33 | Day surgery (SDC) | payer OTHER ==
[2018-12-14 09:09] VITALS: BMI 23.1
--- NOTE | 2018-12-15 09:09 | P.GSHP ---
History of Present Illness H&P Date: 12/15/18 CHIEF COMPLAINT: Colon cancer HISTORY OF PRESENT ILLNESS: The patient is a 58-year-old male diagnosed with colon cancer. He needs a Mediport placement for chemotherapy. PAST MEDICAL HISTORY: See list PAST SURGICAL HISTORY: See list CURRENT MEDICATIONS: See list. ALLERGIES: See list. SOCIAL HISTORY: No active tobacco or alcohol use. FAMILY HISTORY: Noncontributory. REVIEW OF ORGAN SYSTEMS: CONSTITUTIONAL: Has weight loss. PHYSICAL EXAMINATION: Vital signs: Stable GENERAL: Well developed and in no acute distress. Pleasant. HEENT: No sclera icterus. Extraocular movements grossly intact. Moist buccal mucosa. Head is atraumatic, normocephalic. Hears conversational s peech. No nasal drainage. NECK: Supple without lymphadenopathy. No JV distention. CHEST: Non-labored respirations and equal bilateral excursions. CARDIOVASCULAR: Regular rate and rhythm. Palpable 2+ radial pulses. ABDOMEN: Nontender. MUSCULOSKELETAL: No clubbing, cyanosis or edema. NEUROLOGIC: No focal or lateralizing signs. PSYCH: Appropriate affect. Alert and oriented to person, place and time. ASSESSMENT: 1. Colon cancer 2. Need for chemotherapeutic access. PLAN: 1. Agree with Port-A-Cath placement. Past Medical History Past Medical History: Cancer Additional Past Medical History / Comment(s): Current Colon Cancer. Left leg prosthetic due to BKA. 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 Past Anesthesia/Blood Transfusion Reactions: No Reported Reaction Past Psychological History: No Psychological Hx Reported Smoking Status: Current every day smoker Past Alcohol Use History: None Reported Additional Past Alcohol Use History / Comment(s): Pt started smoking in 1976 and smokes 1.5 ppd. He normally drinks 5-6 beers per day. Past Drug Use History: None Reported - Past Family History Father Additional Family Medical History / Comment(s): Father had an arterial injury and of this. Mother Family Medical History: Diabetes Mellitus Sister(s) Family Medical History: Cancer Additional Family Medical History / Comment(s): Brain tumor - . Medications and Allergies Home Medications Medication Instructions Recorded Confirmed Type No Known Home Medications 12/14/18 12/14/18 History Allergies Allergy/AdvReac Type Severity Reaction Status Date / Time No Known Allergies Allergy Verified 12/14/18 09:09
[~2018-12-15 10:33] MED LIST changes: +HYDROmorphone 0.5 MG/0.5 ML SYRINGE IVP PRN; +LACTATED RINGERS 1,000 ML IV SCH; +Pre Op ABX Message 1 EACH MISC MISCELLANE ONE; -SODIUM CHLORIDE 0.9% 500 ML 500 ML in EMPTY BAG 1 BAG IV PRN
[2018-12-15] MEDS ORDERED: LIDOCAINE 1% 20 ML VIAL (10MG/ML) FOR IV START INTRADERMA ONE (11:00)
[2018-12-15 11:05] VITALS: TEMP 98.5
[2018-12-15] MEDS ORDERED: PROPOFOL 10 MG/ML 20 ML VIAL IV ONE (12:29)
[2018-12-15] MEDS ORDERED: fentaNYL (PF) 50 MCG/ML 2 ML AMP ONE (12:29)
[2018-12-15] MEDS ORDERED: MIDAZOLAM 2 MG/2 ML VIAL ONE (12:29)
[2018-12-15] MEDS ORDERED: LIDOCAINE 1% INJ 10MG/ML (20 ML MDV) ONE (12:29)
[2018-12-15] MEDS ORDERED: HEPARIN SODIUM,PORCINE 100 UNIT/ML 5 ML VIAL IV ONE ×2 (12:51→12:54)
[2018-12-15] MEDS ORDERED: HEPARIN SODIUM,PORCINE 10,000 UNIT/ML 1 ML VIAL IV ONE ×2 (12:51→12:54)
[2018-12-15] MEDS ORDERED: LIDOCAINE 1%-EPI 1:100,000 20 ML VIAL SQ ONE ×2 (12:52→12:54)
--- NOTE | 2018-12-15 13:24 | P.OP ---
Date of Procedure: 12/15/18 Description of Procedure: SURGEON: MIRNA SALAZAR MD INTERNAL REVIEW AND AUDIT COMPLIANCE: None. PREOPERATIVE DIAGNOSES: 1. Colon cancer 2. Need for chemotherapeutic access. 3. Left lower leg amputee POSTOPERATIVE DIAGNOSES: 1. Colon cancer 2. Need for chemotherapeutic access. 3. Left lower leg amputee PROCEDURES PERFORMED: 1. Ultrasound guided central venous access of the right internal jugular venous vein. 2. Fluoroscopic guidance for central venous access right internal jugular vein less than 1 seconds. 3. Placement of right internal jugular power port 6 Nepalese by Virool, Xcela Plus Port ANESTHESIA: IV sedation with local. ESTIMATED BLOOD LOSS: 2 mL. SPECIMENS REMOVED: None. COMPLICATIONS: None. INDICATIONS: The patient is a 58-year-old male recently diagnosed with colon cancer. She presents for chemotherapeutic access. Benefits and risks of surgical intervention were described including bleeding, infection, mechanical problems with his port. Informed consent was obtained. DESCRIPTION OR PROCEDURE: Patient was brought into the operating room, laid in supine position. After adequate IV sedation, the chest and right neck were prepped and draped in a standard sterile fashion including the shoulder with ChloraPrep. Timeout protocol was confirmed with the surgical team regarding the patient's name, procedure to be performed including preoperative medications for which she received IV antibiotics. Bilateral SCDs were placed. An ultrasound was used to capture views of the right internal jugular vein including right carotid artery, which was patent and without thrombus along its course. The right IJ was then localized using anesthetic for the skin. A 16 Nepalese needle was used to access the IJ. A guidewire was advanced into the IJ with dark nonpulsatile venous blood. Two fingerbreadths distal to the clavicle, on the lateral third, a transverse 1.5 to 2 cm incision was deepened into the skin after localizing the skin. A pocket was created for the port. The port on the back table was flushed with heparinized saline and then attached to the catheter tubing. An adapter was fastened to the actual port site over the tubing. The port easily had fit snug into the pocket. A subcutaneous tunneler was placed along the open end of the tubing and brought out through the separate stab incision. Fluoroscopic guidance confirmed no kinking along the tubing and the port site. Next, the J-wire was exchanged for a catheter sheath for which the tubing was cut to 22 cm and then advanced through the catheter sheath. The Peel-away sheath was then removed and the tubing was secured at the junction of the superior vena cava as well as the right atrium. The tubing was found to be crossed however functional. This was all done under fluoroscopic guidance under 1 seconds. Easy pullback as well as return and aspiration was obtained of the port site. The skin incision was closed using layers using 3-0 Vicryl for the subcu followed by 4-0 Monocryl in a running subcuticular fashion. At the stick site this was also reapproximated using 4-0 Monocryl. The incisions were covered with Optifoam, The skin was cleansed and Exofin liquid glue was applied. Optifoam dressing was placed over the port site. A total of 20 mL of local anesthetic was placed. At the end of the procedure, needle, sponge, and instrument count was verified correct by rn medical surgical. Heparin lock of 5 mL was placed. The patient was awoken and pain free and taken to the second stage postanesthesia care unit. The patient tolerated the procedure well. FINDINGS: 1. No thrombus encountered along the right carotid artery or internal jugular vein. 2. Access of the right internal jugular vein under ultrasound guidance. 3. Fluoroscopy of less than 1 seconds. Plan - Discharge Summary Discharge Rx Participant: Yes New Discharge Prescriptions: No Action No Known Home Medications Discharge Medication List No Known Home Medications 12/14/18 [History]
[2018-12-15 13:48] VITALS: BP 124/82; RESP 18
--- NOTE | 2018-12-15 13:51 | FL ---
EXAMINATION TYPE: FL guided central line placemt DATE OF EXAM: 12/15/2018 CLINICAL HISTORY: Port-A-Cath insertion. TECHNIQUE: Fluoroscopy. COMPARISON: None. FINDINGS: Fluoroscopic guidance was provided during Port-A-Cath insertion procedure performed by Dr. Angel. A total of 1 secs. Of fluoroscopic time was utilized during the procedure and single spo t fluoroscopic image is acquired. No images saved to PACS currently. IMPRESSION: As Above.
--- NOTE | 2018-12-15 13:54 | XR ---
EXAMINATION TYPE: XR chest 1V confirm line [facility] DATE OF EXAM: 12/15/2018 COMPARISON: CT chest 2 days ago HISTORY: Port-A-Cath insertion. TECHNIQUE: Single AP portable frontal upright view of the chest is obtained. FINDINGS: There is new right internal jugular Mediport catheter terminating SVC. There is background chronic parenchymal change without suspicious focal air space opacity, pleural effusion, or pneumotho rax seen. The cardiac silhouette size is within normal limits. Old fracture deformity right clavicle and right-sided rib noted. IMPRESSION: No pneumothorax after Mediport catheter insertion.
[2018-12-15 14:03] VITALS: PULSE 78
== END 2018-12-15 14:31 | disposition home or self-care (01) ==
LOC: OR 10:33
PROVIDERS: ATTEND Surgery Plastic and Reconstructive Surgery
DX: C18.9 Malignant neoplasm of colon, unspecified (principal); J44.9 Chronic obstructive pulmonary disease, unspecified; F17.210 Nicotine dependence, cigarettes, uncomplicated; Z90.49 Acquired absence of other specified parts of digestive tract; Z93.3 Colostomy status; Z89.512 Acquired absence of left leg below knee; Z83.3 Family history of diabetes mellitus; Z82.0 Family history of epilepsy and other diseases of the nervous system
CPT/HCPCS: 77001; 36561; C1788; J2250; J1644; J1642; J2001; J3010; J2704

== ENCOUNTER → 2019-03-14 | Outpatient (CLI) | payer OTHER ==
[2019-03-14 14:23] LABS: African American GFR (CKD) >90 (>60 ml/min/1.73 sqM); Blood Urea Nitrogen 6 mg/dL (9-20); Non-African American GFR(CKD) >90 (>60 ml/min/1.73 sqM)
--- NOTE | 2019-03-14 16:58 | CT ---
EXAMINATION TYPE: CT ChestAbdPelvis w con DATE OF EXAM: 03/14/2019 INDICATION: colon ca COMPARISON: 12/13/2018 CT DLP: 1083.2 mGycm CONTRAST: Performed with Oral Contrast and with IV Contrast, patient injected with 100 mL of Isovue 300. TECHNIQUE: Axial images at 5 mm thick sections. Reconstructed images in the coronal plane. Delayed images through the kidneys. FINDINGS: CT CHEST: Portion of the thyroid visualized is normal. No suspicious lung nodules or focal infiltrates are present. May be some mild compressive atelectasis within the dependent portions of the lung bases. No enlarged mediastinal or hilar adenopathy is evident. There are scattered lymph nodes within the bi lateral axillary regions largest on left measures 1.1 cm. Largest on the right measures 1.3 cm. Scatt ered small lymph nodes are within the pretracheal space. The ascending aorta diameter at the level of the main pulmonary artery is 3.6 cm. The main pulmonary artery diameter at the bifurcation is 3.0 cm. Coronary artery calcification is present. CT ABDOMEN: Liver: There are at least 3 ill-defined hypodensities within the right lobe liver measuring 2.0, 3.1, 1.8 cm in size. These are smaller than the comparison. An additional hypodensity mid right lobe live r is poorly visualized measuring 1.6 cm. Spleen: Normal Pancreas: Normal Adrenal glands: The adrenal glands are normal. Gallbladder: Normal Kidneys: No masses are evident. No hydronephrosis is present. There are some calcifications within the right mid renal cortex. Underlying cyst may be present at that level. There is a cyst on the medi al left mid kidney measuring 2.4 cm and 3 Hounsfield units. An inferior pole right renal cyst is pres ent measuring 1.8 cm and 12 Hounsfield units. Aorta: Vascular calcification is within the aorta. Inferior vena cava: Normal. CT PELVIS: There is a left midabdomen colostomy. There are loops of bowel which are incompletely distended or la ck oral contrast limiting their evaluation. Appendix: Normal as visualized. Urinary bladder: Normal. Genitourinary structures: Prostate is mildly prominent. Osseous structures: Scattered ill-defined sclerotic areas within the pelvis suspicious for metastatic disease. Some mildly sclerotic areas may be within scattered thoracic and lumbar spine suggesting ad ditional metastatic disease. IMPRESSIONS: 1. Resolving hepatic masses. 2. Renal cysts. Couple calcifications may be within the right kidney without hydronephrosis. 3. Shotty lymphadenopathy to the mediastinum. A couple of prominent axillary lymph nodes are present bilaterally.
== END | disposition home or self-care (01) ==
LOC: RADPROMAIN 13:31
PROVIDERS: ATTEND Internal Medicine Hematology & Oncology
DX: N28.1 Cyst of kidney, acquired (principal); R16.0 Hepatomegaly, not elsewhere classified; R59.1 Generalized enlarged lymph nodes; C18.7 Malignant neoplasm of sigmoid colon
CPT/HCPCS: 82565; 84520; 71260; 74177; 36415; J1642; Q9967

== ENCOUNTER → 2019-05-16 | Outpatient (CLI) | payer OTHER ==
[2019-05-16 11:07] LABS: African American GFR (CKD) >90 (>60 ml/min/1.73 sqM); Blood Urea Nitrogen 8 mg/dL (9-20); Non-African American GFR(CKD) >90 (>60 ml/min/1.73 sqM)
--- NOTE | 2019-05-16 12:18 | MR ---
EXAMINATION TYPE: MR abdomen wo/w con DATE OF EXAM: 05/16/2019 COMPARISON: Prior MRI abdomen December 13, 2018. Prior CT March 14, 2019 and older CTs. HISTORY: Colon CA with known hepatic metastatic disease originally diagnosed October 2018. CONTRAST: Standard multiplanar, multisequence MRI departmental protocol utilizing 8.5 mL intravenous Gadavist g adolinium contrast. Imaging is performed of the abdomen focusing on the liver. FINDINGS: Current exam noted suboptimal as there is significant artifact on all images obtained appea rs mostly wraparound type artifact, etiology uncertain and is new from prior MRI Liver: Deep inferior right hepatic lobe central hypovascular mass with peripheral rim enhancement yareli sures 3.6 cm long axis prior study image 383 series 801 versus 2.5 cm current study image 288 series 701. Smaller more posterior lesion measures 303 difficult to accurately measure due to artifact felt infer iorly stable measuring 1.6 cm image 303 long axis series 701 versus 1.7 cm prior study. More anterior right hepatic lobe lesion measures 2.1 cm long axis image 283 series 701 versus 3.1 cm prior study. The central 1.8 cm lesion prior study image 503 fairly stable measuring 1.6 cm long axis current stud y image 418 series 701. No definitive new intrahepatic lesions. Liver size stable and within normal limits. Patent hepatic ve ins draining into IVC. Patent central Main portal vein redemonstrated. Other: Gallbladder remains within normal limits. Spleen and both adrenal glands are also within vijay l limits. There are simple appearing thin-walled cysts scattered throughout both kidneys. There is pe rsistent roughly 2.1 cm proteinaceous cyst laterally lower pole of the right kidney with increased T1 and low T2 signal. No suspicious bowel dilatation. Surgical scar in the anterior midline abdominal wall. Persistent left mid abdominal ostomy. Slight dextroconvex scoliosis centered at L1 level with mild height loss or ch ronic compression. IMPRESSION: Partial positive treatment response felt present as detailed above. No new or enlarging l esions seen. Current exam markedly suboptimal due to artifact on all sequences obtained of uncertain etiology.
--- NOTE | 2019-05-16 12:40 | CT ---
EXAMINATION TYPE: CT chest w con DATE OF EXAM: 05/16/2019 COMPARISON: CT dated 03/14/2019 and MRI abdomen the same date. HISTORY: Observe for mets. History of colon cancer with known hepatic metastasis. CT DLP: 557 mGycm. Automated Exposure Control for Dose Reduction was Utilized. TECHNIQUE: CT scan of the thorax is performed following with IV Contrast, patient injected with 100m l mL of Isovue 300. FINDINGS: LUNGS: The lungs are grossly clear, there is no concerning parenchymal mass or nodule identified. Few areas of pleural parenchymal scarring are seen. There is no pleural effusion or pneumothorax seen. The tracheobronchial tree is patent. MEDIASTINUM: There is a right-sided Mediport. There are no greater than 1 cm hilar or mediastinal lym ph nodes. No pericardial effusion is seen. OTHER: The known metastatic lesions are discussed on MRI abdomen of the same date. A hyperdense prote inaceous or hemorrhagic cyst in the right kidney is partially visualized as seen on the MRI of the sa me date and additional benign-appearing simple fluid attenuated right renal cyst is also partially vi sualized. Very minimal retroareolar probable gynecomastia bilaterally. Nonenlarged axillary lymph nod es are again noted measuring smaller than on the prior. Old healed fracture deformities of multiple lateral right ribs and anterior right ribs are seen. No n ew suspicious osseous lesion. Mottled appearance of the bone marrow could be on the basis of multifoc al osseous metastasis or diffuse osseous demineralization. This is best demonstrated on sagittal seri es 7 image 59. Most focal findings are seen of L1. Scattered punctate sclerotic foci are also seen th roughout. Very small hiatal hernia seen. IMPRESSION: 1. No new mediastinal adenopathy, pulmonary nodule. No evidence of intrathoracic metastatic disease. 2. Mottled appearance of the bone marrow throughout concerning for multifocal metastasis with scatter ed punctate sclerotic foci. Osseous metastasis was also suggested on the prior CT of 03/14/2019. 3. Partially visualized known hepatic metastasis that are discussed on the MRI abdomen of the same da te.
== END | disposition home or self-care (01) ==
LOC: RADMRIMAIN 10:07
PROVIDERS: ATTEND Internal Medicine Hematology & Oncology
DX: C18.7 Malignant neoplasm of sigmoid colon (principal); C78.7 Secondary malignant neoplasm of liver and intrahepatic bile duct; R93.7 Abnormal findings on diagnostic imaging of other parts of musculoskeletal system
CPT/HCPCS: 82565; 84520; 71260; 36415; 74183; A9585; Q9967

== ENCOUNTER → 2019-06-13 | Outpatient (CLI) | payer OTHER ==
--- NOTE | 2019-06-13 14:21 | NM ---
EXAMINATION TYPE: NM bone scan whole body DATE OF EXAM: 06/13/2019 COMPARISON: NONE HISTORY: Rule out metastatic disease Delayed whole-body scanning was performed following the injection of 22.4 mCi Tc 99m MDP. Images acq uired 3 hours post injection. FINDINGS: There is mild degenerative uptake seen about the shoulders, hips and knees. No evidence for intense u ptake to suggest metastatic disease to the osseous structures. IMPRESSION: Mild degenerative uptake.
== END | disposition home or self-care (01) ==
LOC: RADNMMAIN 10:03
PROVIDERS: ATTEND Internal Medicine Hematology & Oncology
DX: M19.019 Primary osteoarthritis, unspecified shoulder (principal); C18.7 Malignant neoplasm of sigmoid colon
CPT/HCPCS: 78306; A9503

== ENCOUNTER → 2019-07-28 | Outpatient (CLI) | payer OTHER ==
--- NOTE | 2019-08-01 09:37 | PE ---
Nuclear medicine PET/CT HISTORY: Colon carcinoma, subsequent Patient received 11.7 mCi F-18 FDG intravenously in delayed scanning was performed from the skull bas e to the mid thighs. Localization and attenuation correction CT scan was performed. Correlation to prior CT scan 03/14/2019 neck and chest: There is no suspicious uptake present. Borderline node deep to the left sternocleidom astoid muscle at the level of the hyoid bone is noted on axial image #56 and 57. Right-sided port cou rses via the internal jugular vein approach into the cavoatrial junction level. Nonenlarged bilateral axillary nodes are again seen. Shotty mediastinal and prevascular nodes are again noted. No pleural or pericardial effusion. No evident lung mass. ABDOMEN: There are 2 masses within the posterior aspect of the right lobe of the liver which show hyp odense appearance on CT and corresponding hypermetabolic uptake SUV 4.6 and 4.2 in the right lobe, mo re anterior lesion SUV only 2.5. Masses show suggestion of decrease in size as compared to prior CT. The masses seen on previous exam within the left lobe anteriorly and adjacent to the shaheen show only mild uptake, SUV 2.3. The liver masses appear to have decreased in size. There is a focus along the s kin No retroperitoneal adenopathy or hypermetabolic uptake. There is no ascites. There is a focus of activity present which is appears to be at the skin surface at the level of the l ower chest, no corresponding abnormality is noted on CT, this may represent contamination. Osseous structures show no hypermetabolic uptake. IMPRESSION: Findings compatible with treatment response. Probable contamination along the skin as mary cribed.
== END | disposition home or self-care (01) ==
LOC: RADPETMAIN 08:52
PROVIDERS: ATTEND Internal Medicine Hematology & Oncology
DX: C18.7 Malignant neoplasm of sigmoid colon (principal)
CPT/HCPCS: 78815; A9552

== ENCOUNTER → 2019-08-07 | Outpatient (CLI) | payer OTHER ==
--- NOTE | 2019-08-07 10:21 | MR ---
EXAMINATION TYPE: MR liver wo/w con DATE OF EXAM: 08/07/2019 COMPARISON: PET/CT dated 07/28/2019 and MR abdomen dated 05/16/2019 HISTORY: Follow up Study. Known Colon CA with Hepatic Mets CONTRAST: Standard multiplanar, multisequence MRI departmental protocol utilizing 8 mL intravenous Gadavist braulio olinium contrast. FINDINGS: The liver displays no evidence of hepatic steatosis in phase imaging. The liver is not enlarged. There are multiple peripherally arterial enhancing T2 slightly hyperintense and T1 hypointense hepati c metastases as demonstrated on the prior. The first is located within segment 6 in the posterior rig ht hepatic lobe measuring 1.6 x 1.5 cm stable from the prior to this measured 1.6 cm on series 701 im age 321. The second is seen within the medial right hepatic lobe spanning segments 4B and 5 measuring 2.1 x 3.0 cm, decreased in size from the prior radius measured 3.6 cm. This is marked on image 306. The next is seen within the cranial aspect of segment IVb measuring 1.4 x 0.9 cm better seen on today 's examination than the prior but appearing stable in size. Another subtle lesion is seen in the left hepatic lobe measuring 1.3 cm, better seen on today's examination but demonstrating no significant i nterval growth. Within the left hepatic lobe at the periphery there is a stable 2.4 x 2.1 cm lesion. Lastly there is a 1.3 x 1.2 cm lesion on image 421 seen medially near the caudate lobe and left shaheen l vein measuring 1.3 x 1.2 cm, smaller than the prior over this measured 1.6 cm. No new suspicious he patic metastases. Main portal vein appears patent. Solitary nonenhancing 3 mm cyst is seen in T2-weig hted series 401 image 21. No calculi are seen within the gallbladder. There are multiple bilateral renal lesions, the majority are T2 hyperintense and T1 hypointense with no suspicious enhancement, however there are to T1 hyperi ntense and T2 hypointense right renal lesions representing proteinaceous and/or hemorrhagic cysts. Th e first in the right upper pole measures 1.4 cm and is stable in size and the second measures 2.5 cm and is also stable in size. No hydronephrosis of either kidney. The spleen is unremarkable. Very small hiatal hernia suspected. Very minimal nodularity of the inferi or margin of the left adrenal isthmus is unchanged. No new enhancing nodule. Pancreas is grossly unre markable. Periportal lymph nodes are not enlarged measuring up to 0.8 cm. Left mid abdominal ostomy i s redemonstrated. Slight dextroscoliosis of the spine is noted with mild compression deformity of L1 redemonstrated. IMPRESSION: Continued response to treatment. Smaller size of few of the multiple known hepatic metast ases secondary to primary colon carcinoma. The remainder of the hepatic metastases demonstrate stable size. No new suspicious hepatic lesions and no lesions that demonstrate interval growth. No new loca l adenopathy.
--- NOTE | 2019-08-07 11:22 | CT ---
EXAMINATION TYPE: CT ChestAbdPelvis w con DATE OF EXAM: 08/07/2019 COMPARISON: PET/CT July 28, 2019. Same day MRI liver study. Most recent CT March 14, 2019. HISTORY: colon cancer metastatic to liver progress study CT DLP: 624.5 mGycm. Automated Exposure Control for Dose Reduction was Utilized. CONTRAST: CT scan of the thorax, abdomen and pelvis is performed with oral and with IV Contrast, patient inject ed with 100 mL of Isovue 300. FINDINGS: LUNGS: [id number] underlying emphysematous changes redemonstrated. No new suspicious nodules or masses. MEDIASTINUM: There are prominent and enlarging mediastinal lymph nodes. Largest in the AP window marco ures 2.1 x 1.2 cm segment 27. No cardiomegaly or pericardial effusion is seen. OTHER: Stable right internal jugular Mediport catheter. LIVER/GB: Overall improvement in hepatic metastatic disease with decreasing size of lesions. This is best appreciated on same day MRI liver study. Largest lesion deep right hepatic lobe axial image 74 m easures 2.7 cm current study versus 3.8 cm long axis prior CT study. PANCREAS: No significant abnormality is seen. SPLEEN: No significant abnormality is seen. ADRENALS: Stable slight thickening to left adrenal gland favor benign dysplasia.. KIDNEYS: Nonspecific roughly 1 cm hypodense lesion lateral upper pole right kidney seen best image 26 series 6 favors proteinaceous cyst near some calcification inferior to this. Occasional scattered cy sts throughout both kidneys are redemonstrated.. BOWEL: Oral contrast only reaches proximal ileal loops. No suspicious small or large bowel dilatation is noted. Surgical sutures from partial colectomy proximal sigmoid colon left pelvis axial image 111 redemonstrated. Persistent left mid abdominal colostomy. GENITAL ORGANS: No gross abnormality seen. LYMPH NODES: No new greater than 1cm abdominal or pelvic lymph nodes are appreciated. Stable prominen t but subcentimeter left para-aortic lymph node axial image 79. OSSEOUS STRUCTURES: Scoliotic curvature. Mild height loss involving the L1 vertebra. Subtle scattered sclerotic lesions identified, for reference right iliac bone near sacroiliac joint image 62 and cent ral L3 lesion coronal Image 50. Lesions in retrospect not significant changed from prior studies. No definitive hypermetabolic uptake noted. Old right anterolateral upper rib fractures redemonstrated. OTHER: Mild to moderate calcified plaque of the aorta extends into branch vessels. IMPRESSION: Improving hepatic metastatic disease is felt present. Findings seen better on same day li michelle MRI and correlates with this CT. Suspicious enlarging mediastinal lymph node noted. Consider repe at PET/CT evaluation.
== END | disposition home or self-care (01) ==
LOC: RADMRIMAIN 08:00
PROVIDERS: ATTEND Internal Medicine Hematology & Oncology
DX: C78.7 Secondary malignant neoplasm of liver and intrahepatic bile duct (principal); C18.7 Malignant neoplasm of sigmoid colon; R59.0 Localized enlarged lymph nodes
CPT/HCPCS: 71260; 74177; 74183; A9585; Q9967

== ENCOUNTER → 2020-01-31 | Outpatient (CLI) | payer OTHER ==
[2020-01-31 13:11] LABS: African American GFR (CKD) >90 (>60 ml/min/1.73 sqM); Blood Urea Nitrogen 8 mg/dL (9-20); Non-African American GFR(CKD) >90 (>60 ml/min/1.73 sqM)
--- NOTE | 2020-01-31 14:59 | CT ---
EXAMINATION TYPE: CT ChestAbdPelvis w con DATE OF EXAM: 01/31/2020 COMPARISON: CT August 07, 2019 and older CTs HISTORY: Follow up for colon cancer, observe for mets. History of surgery in the colon and liver. Com pleted chemotherapy June 26, 2019. Radiation treatment last month. CT DLP: 953.9 mGycm. Automated Exposure Control for Dose Reduction was Utilized. CONTRAST: CT scan of the thorax, abdomen and pelvis is performed with oral and with IV Contrast, patient inject ed with 100ml mL of Isovue 300. FINDINGS: LUNGS: Mild biapical pleural/parenchymal scarring. No new nodules or masses. No pleural effusion or p neumothorax. MEDIASTINUM: There are persistent prominent thoracic lymph nodes involving prevascular region, AP wi ndow, subcarinal, and subcarinal levels. No significant interval change. No new greater than 1 cm kim nopathy. No cardiomegaly or pericardial effusion is seen. Coronary artery calcification redemonstr ated. OTHER: Stable right internal jugular Mediport catheter. LIVER/GB: Hepatic metastatic disease progression with anterior right hepatic lobe lesion measuring 4. 1 cm long axis axial image 66 versus 1.4 cm most recent prior. The posterior right hepatic lobe mass measures 4.3 cm long axis axial image 66 prior study versus 1.9 cm prior study axial image 75. More c entral intrahepatic mass measures 5.8 cm long axis image 62 versus 2.7 cm prior study axial image 74. There is new mild left intrahepatic biliary dilatation due to this enlarging central mass. New Mild right inferior perihepatic ascites noted. PANCREAS: No significant abnormality is seen. SPLEEN: No significant abnormality is seen. ADRENALS: No significant abnormality is seen. KIDNEYS: Symmetrical cortical medullary uptake and excretion without hydronephrosis seen bilaterally. Few scattered subcentimeter thin-walled cysts throughout both kidney is redemonstrated. BOWEL: Surgical sutures from prior sigmoid colonic anastomosis redemonstrated. Moderate amount of fec al prominence at this level noted. No new suspicious bowel dilatation. GENITAL ORGANS: Stable mildly enlarged prostate gland. LYMPH NODES: No new greater than 1cm abdominal or pelvic lymph nodes are appreciated. OSSEOUS STRUCTURES: Multiple old right anterolateral displaced healed upper to mid rib fractures rede monstrated. Scattered sclerosis in the pelvis was again seen greatest at the sacroiliac joints. No si gnificant interval change. OTHER: Mild calcified plaque in the aorta extends into branch vessels. IMPRESSION: Worsening hepatic metastatic disease with new left-sided mild intrahepatic biliary dilata tion.
== END | disposition home or self-care (01) ==
LOC: RADCTMAIN 12:11
PROVIDERS: ATTEND Internal Medicine Hematology & Oncology
DX: C78.7 Secondary malignant neoplasm of liver and intrahepatic bile duct (principal); C18.7 Malignant neoplasm of sigmoid colon
CPT/HCPCS: 82565; 84520; 71260; 74177; 36415; Q9967

== ENCOUNTER → 2020-04-24 | Outpatient (CLI) | payer OTHER ==
--- NOTE | 2020-04-24 21:50 | CT ---
EXAMINATION TYPE: CT ChestAbdPelvis w con DATE OF EXAM: 04/24/2020 INDICATION: Follow up for colon CA COMPARISON: 01/31/2020 CT DLP: 1278.5 mGycm CONTRAST: Performed with Oral Contrast and with IV Contrast, patient injected with 100 mL of Isovue 300. TECHNIQUE: Axial images at 5 mm thick sections. Reconstructed images in the coronal plane. Delayed images through the kidneys. FINDINGS: CT CHEST: Portion of the thyroid visualized is normal. There is a peripheral based nodule within the left midlung measuring 0.7 cm. Series 4 image 31. This is new. There is a 0.9 cm nodule within the periphery of the right lung. Series 4 image 29. This is new. No enlarged mediastinal or hilar adenopathy is evident. Scattered small lymph nodes are present withi n the mediastinum. The ascending aorta diameter at the level of the main pulmonary artery is 3.7 cm. The main pulmonary artery diameter at the bifurcation is 2.9 cm. Old right rib fractures are evident. CT ABDOMEN: Liver: There is a 3.7 cm hypodensity with some minimal central enhancement within the periphery of th e liver. Series 3 image 62. This is better visualized on the delayed images. Metastatic lesion is not excluded. This was present previously. The prior hypodensity within the posterior right lobe liver w ith an adjacent calcification has significantly diminished in size over the interval. By history, the patient has undergone a partial hepatectomy. Spleen: Normal Pancreas: Normal Adrenal glands: The adrenal glands are normal. Gallbladder: Normal Kidneys: No masses are evident. No hydronephrosis is present. There is a 2.1 cm cyst on the posteri or right mid kidney with an SUV of 9.4 additional hypodensity is present better visualized on the de layed images in the posterior lateral right kidney measuring 1.5 cm. Series 5 image 27. There is a 2. 5 cm cyst measuring -5 Hounsfield units in the medial left kidney. Couple of small cortical renal cys ts are present. There are additional echodensities within the lateral mid right kidney and the inferior pole right ki dney measuring 57 Hounsfield units. These were present previously. These may be solid lesions. Aorta: Vascular calcification is within the aorta. Inferior vena cava: Normal. CT PELVIS: Loops of bowel within the abdomen and pelvis are normal. There are loops of bowel which are incom pletely distended or lack oral contrast limiting their evaluation. Appendix: Normal as visualized. Urinary bladder: Normal. Genitourinary structures: Prostate is prominent Osseous structures: No suspicious lytic or sclerotic lesions. May be some sclerosis which may be dege nerative in nature adjacent to the anterior left sacroiliac joint posterior right sacroiliac joint. P rostatic disease is not entirely excluded. IMPRESSIONS: 1. Couple of new bilateral lung nodules. This could be further evaluated with PET/CT. Metastatic dise ase is not excluded. 2. Hepatic lesions discussed above. Cortical anterior is slightly smaller with a similar appearance. The second appears significantly diminished in size with stable adjacent calcification. 3. Couple of right renal lesions which may be solid. These were present previously.
== END | disposition home or self-care (01) ==
LOC: RADPROMAIN 12:45
PROVIDERS: ATTEND Internal Medicine Hematology & Oncology
DX: R91.8 Other nonspecific abnormal finding of lung field (principal); K76.9 Liver disease, unspecified; C18.7 Malignant neoplasm of sigmoid colon
CPT/HCPCS: 71260; 74177; J1642; Q9967

== ENCOUNTER → 2020-05-17 | Outpatient (CLI) | payer OTHER ==
--- NOTE | 2020-05-17 15:09 | PE ---
Nuclear medicine PET/CT HISTORY: Colorectal carcinoma, subsequent Patient received 10.3 mCi F-18 FDG intravenously in delayed scanning was performed from the skull bas e to the mid thighs. Localization and attenuation correction CT scan was performed. Correlation to CT 04/24/2020, PET/CT 07/28/2019 Chest and neck: There is no suspicious uptake. No evident uptake associated with patient's lung nodul es, no pleural or pericardial effusion. Right-sided port is present which courses via the internal ju gular vein into the superior vena cava. Rib deformities are again noted anterolaterally. No mediastin al, axillary, or hilar adenopathy, shotty nodes are present. There are some coronary artery calcifica tions present. ABDOMEN: The liver mass seen on prior PET/CT within the posterior right lobe is again seen to show hy permetabolic uptake. There is uptake about the central portion of the liver which is increased as com pared to prior exam, the area of uptake correlates to the abnormality seen on CT scan, some periphera l calcification is present. Additional masses are again seen, low-attenuation in the anterior liver d oes not show significant uptake. Uptake in the region in the liver adjacent to the inferior vena cava is again noted. There is no ascites. Postop changes in the bowel. No retroperitoneal adenopathy. Osseous structures show no uptake. IMPRESSION: Central liver mass shows uptake not seen on prior PET/CT. Pulmonary nodules may be too sm all to show hypermetabolic uptake.
== END | disposition home or self-care (01) ==
LOC: RADPETMAIN 09:26
PROVIDERS: ATTEND Internal Medicine Hematology & Oncology
DX: R16.0 Hepatomegaly, not elsewhere classified (principal); R91.8 Other nonspecific abnormal finding of lung field; C18.7 Malignant neoplasm of sigmoid colon; Z92.21 Personal history of antineoplastic chemotherapy
CPT/HCPCS: 78815; A9552

== ENCOUNTER → 2020-07-12 | Outpatient (CLI) | payer OTHER ==
--- NOTE | 2020-07-12 13:37 | CT ---
EXAMINATION TYPE: CT ChestAbdPelvis w con DATE OF EXAM: 07/12/2020 COMPARISON: PET CT scan 05/17/2020 HISTORY: H/O colon CA - obs for mets CT DLP: 1748.10 mGycm Automated exposure control for dose reduction was used. CONTRAST: Performed with IV Contrast, patient injected with 100ml mL of Isovue 300. Images were obtained from the thoracic inlet to the floor the pelvis with IV contrast. There are multiple old right-sided healed rib fractures. There is 13 mm noncalcified nodule in the garcia bpleural lateral right upper lobe. There are mild emphysematous changes at the lung apices. There is 7 mm nodule in the right upper lobe close to the pulmonary hilum. There is 10 mm noncalcified nodule in the subpleural posterior right upper lobe. There is 12 mm nodule adjacent to the pleura in the ant erior left upper lobe. There is 4 mm subpleural nodule lateral left lower lobe. There are 5 mm nodule s in the lateral right lower lobe. There is no pleural effusion. There is no pericardial effusion. Th ere are no hilar masses. There are a few paratracheal lymph nodes that measure up to 8 mm. Thoracic a kiara is intact. There is no aneurysm or dissection. Heart size is normal. There is 3.5 cm low-density lesion in the anterior right lobe of the liver. There is suggestion of a poorly marginated 4 cm low-density mass near the shaheen hepatis. Spleen is intact. Stomach is intact. There is no pancreatic mass. There are clips from cholecystectomy. There is no adrenal mass. The bile ducts are not dilated. Kidneys show satisfactory contrast opacification. There are multiple bilateral renal cortical cysts t hat measure up to 2.5 cm. There is 1.6 cm mass involving the cortex lateral right kidney which has in termediate attenuation and possible calcification. There is no retroperitoneal adenopathy. Appendix a ppears normal. Bladder distends smoothly. There is no inguinal hernia. There is no free fluid in the pelvis. There is no mesenteric edema. There is no ascites or free air. There is no sign of a bowel obstructio n. There are surgical clips at the sigmoid colon. There is some mild sclerosis in the L1 vertebral luanne dy with mild compression of 15%. The thoracic vertebra appear intact. There is degenerative spur form ation. Sternum is intact. There is probably an old healed fracture of the upper sternum. The bony pelvis is intact. Hip joints are intact. There is broad-based umbilical hernia contains fat. IMPRESSION: Multiple pulmonary nodules are increased compared to recent PET CT scan and consistent with progressi on metastatic disease. Low density lesions in the liver are also present on the old CT scan of 04/24/2020 and appear not sign ificantly different in size. There is small mass on the lateral right kidney which is not a simple cyst and appears unchanged comp ared to 04/24/2020 CT scan.
== END | disposition home or self-care (01) ==
LOC: RADCTMAIN 10:16
PROVIDERS: ATTEND Internal Medicine Hematology & Oncology
DX: R91.8 Other nonspecific abnormal finding of lung field (principal); K76.9 Liver disease, unspecified; N28.89 Other specified disorders of kidney and ureter
CPT/HCPCS: 71260; 74177; Q9967

== ENCOUNTER 2020-11-26 12:08 | Inpatient (IN) | payer OTHER ==
[2020-11-26] MEDS ORDERED: SODIUM CHLORIDE 0.9% 1,000 ML IV STA (12:57)
[2020-11-26] MEDS ORDERED: SODIUM CHLORIDE 0.9% 500 ML 500 ML IV STA (12:57)
--- NOTE | 2020-11-26 13:17 | ED ---
General Adult HPI - General Chief complaint: Recheck/Abnormal Lab/Rx Stated complaint: abn labs Time Seen by Provider: 11/26/20 12:51 Source: patient, RN notes reviewed, old records reviewed Mode of arrival: ambulatory Limitations: no limitations - History of Present Illness Initial comments: 60-year-old male sent in from the oncologist office for evaluation of elevated liver enzymes and jaundice. Patient is currently being treated for stage IV colon cancer. He states that over the past several days he has not felt well he's had some nausea and some right upper quadrant pain. He had noticed that his urine was quite dark. He presented for chemotherapy and had laboratory studies obtained and this indicated that he had an elevated bilirubin and a transaminitis. He was sent in to the emergency department for admission. - Related Data Home Medications Medication Instructions Recorded Confirmed No Known Home Medications 11/26/20 11/26/20 Allergies Allergy/AdvReac Type Severity Reaction Status Date / Time No Known Allergies Allergy Verified 11/26/20 13:51 Review of Systems ROS Statement: Those systems with pertinent positive or pertinent negative responses have been documented in the HPI. ROS Other: All systems not noted in ROS Statement are negative. Past Medical History Past Medical History: Cancer, GERD/Reflux Additional Past Medical History / Comment(s): Constipation since Jul, 2018. 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 Bowel resection with colostomy - October 2018 Past Anesthesia/Blood Transfusion Reactions: No Reported Reaction Past Psychological History: No Psychological Hx Reported Smoking Status: Current every day smoker Past Alcohol Use History: None Reported Past Drug Use History: None Reported - Past Family History Father Additional Family Medical History / Comment(s): Father had an arterial injury and of this. Mother Family Medical History: Diabetes Mellitus Sister(s) Family Medical History: Cancer Additional Family Medical History / Comment(s): Brain tumor - . General Exam Limitations: no limitations General appearance: alert, in no apparent distress Head exam: Present: atraumatic, normocephalic Eye exam: Present: normal appearance, PERRL, scleral icterus ENT exam: Present: normal exam Neck exam: Present: normal inspection. Absent: tenderness Respiratory exam: Present: normal lung sounds bilaterally. Absent: respiratory distress, wheezes Cardiovascular Exam: Present: regular rate, normal rhythm GI/Abdominal exam: Present: distended, tenderness (ru Quadrant) Neurological exam: Present: alert, oriented X3, CN II-XII intact, motor sensory deficit Psychiatric exam: Present: normal affect, normal mood Skin exam: Present: warm, dry, other (Jaundice) Course Vital Signs 11/26/20 11/26/20 12:21 14:31 Temperature 97.7 F Pulse Rate 66 65 Respiratory 18 18 Rate Blood Pressure 132/86 124/73 O2 Sat by Pulse 95 95 Oximetry - Reevaluation(s) Reevaluation #1: 11/26/20 15:[address] recommends [address] abdomen, this will be ordered, results pending. EKG Findings - EKG Comments: EKG Findings:: EKG: Normal sinus rhythm, rate of 61, [place] interval 140, QRS duration 96, QTC 416, no ST segment elevation. Medical Decision Making - Medical Decision Making 60-year-old male presenting with jaundice, hyperbilirubinemia and right upper quadrant pain. Patient does have history of stage IV colon cancer. He was sent in by the oncologist office for admission. Workup is initiated, he has stable hemoglobin, normal white blood cell count, elevated transaminitis, elevated alkaline phosphatase, elevated unconjugated hyperbilirubinemia. Patient had ultrasound which shows a likely intrahepatic duct dilatation, no dilatation of the common bile duct. CT of the abdomen has been ordered at the request of Dr. Najera. These results are pending. He will be admitted to Dr. Najera with Dr. Escoto and Dr. Mccormick on consult. - Lab Data Result diagrams: 11/26/20 12:59 11/26/20 12:59 Lab Results 11/26/20 11/26/20 11/26/20 Range/Units 12:59 12:59 12:59 WBC 7.3 (3.8-10.6) k/uL RBC 4.26 L (4.30-5.90) m/uL Hgb 14.0 (13.0-17.5) gm/dL Hct 42.4 (39.0-53.0) % MCV 99.4 (80.0-100.0) fL MCH 32.8 (25.0-35.0) pg MCHC 33.0 (31.0-37.0) g/dL RDW 13.1 (11.5-15.5) % Plt Count 283 (150-450) k/uL MPV 8.1 Neutrophils % 70 % Lymphocytes % 19 % Monocytes % 5 % Eosinophils % 4 % Basophils % 0 % Neutrophils # 5.1 (1.3-7.7) k/uL Lymphocytes # 1.4 (1.0-4.8) k/uL Monocytes # 0.4 (0-1.0) k/uL Eosinophils # 0.3 (0-0.7) k/uL Basophils # 0.0 (0-0.2) k/uL PT 10.4 (9.0-12.0) sec INR 1.0 (<1.2) APTT 28.2 (22.0-30.0) sec Sodium (137-145) mmol/L Potassium (3.5-5.1) mmol/L Chloride (98-107) mmol/L Carbon Dioxide (22-30) mmol/L Anion Gap mmol/L BUN (9-20) mg/dL Creatinine (0.66-1.25) mg/dL Est GFR (CKD-EPI)AfAm (>60 ml/min/1.73 sqM) Est GFR (CKD-EPI)NonAf (>60 ml/min/1.73 sqM) Glucose (74-99) mg/dL Plasma Lactic Acid Erasmo (0.7-2.0) mmol/L Calcium (8.4-10.2) mg/dL Total Bilirubin (0.2-1.3) mg/dL Conjugated Bilirubin (0.0-0.3) mg/dL Unconjugated Bilirubin (0.0-1.1) mg/dL Delta Bilirubin (0.0-0.2) mg/dL AST (17-59) U/L ALT (4-49) U/L Alkaline Phosphatase (38-126) U/L Ammonia (<30) umol/L Total Protein (6.3-8.2) g/dL Albumin (3.5-5.0) g/dL Amylase (30-110) U/L Lipase (23-300) U/L Urine Color Yellow Urine Appearance Clear (Clear) Urine pH 6.0 (5.0-8.0) Ur Specific Pryor 1.001 (1.001-1.035) Urine Protein Negative (Negative) Urine Glucose (UA) Negative (Negative) Urine Ketones Negative (Negative) Urine Blood Negative (Negative) Urine Nitrite Negative (Negative) Urine Bilirubin 1+ H (Negative) Urine Urobilinogen <2.0 (<2.0) mg/dL Ur Leukocyte Esterase Negative (Negative) 11/26/20 11/26/20 Range/Units 12:59 12:59 WBC (3.8-10.6) k/uL RBC (4.30-5.90) m/uL Hgb (13.0-17.5) gm/dL Hct (39.0-53.0) % MCV (80.0-100.0) fL MCH (25.0-35.0) pg MCHC (31.0-37.0) g/dL RDW (11.5-15.5) % Plt Count (150-450) k/uL MPV Neutrophils % % Lymphocytes % % Monocytes % % Eosinophils % % Basophils % % Neutrophils # (1.3-7.7) k/uL Lymphocytes # (1.0-4.8) k/uL Monocytes # (0-1.0) k/uL Eosinophils # (0-0.7) k/uL Basophils # (0-0.2) k/uL PT (9.0-12.0) sec INR (<1.2) APTT (22.0-30.0) sec Sodium 135 L (137-145) mmol/L Potassium 4.3 (3.5-5.1) mmol/L Chloride 105 (98-107) mmol/L Carbon Dioxide 20 L (22-30) mmol/L Anion Gap 10 mmol/L BUN 4 L (9-20) mg/dL Creatinine 0.54 L (0.66-1.25) mg/dL Est GFR (CKD-EPI)AfAm >90 (>60 ml/min/1.73 sqM) Est GFR (CKD-EPI)NonAf >90 (>60 ml/min/1.73 sqM) Glucose 114 H (74-99) mg/dL Plasma Lactic Acid Erasmo 0.8 (0.7-2.0) mmol/L Calcium 9.4 (8.4-10.2) mg/dL Total Bilirubin 10.4 H (0.2-1.3) mg/dL Conjugated Bilirubin 6.1 H (0.0-0.3) mg/dL Unconjugated Bilirubin 1.5 H (0.0-1.1) mg/dL Delta Bilirubin 2.8 H (0.0-0.2) mg/dL AST 227 H (17-59) U/L ALT 232 H (4-49) U/L Alkaline Phosphatase 1506 H (38-126) U/L Ammonia 15 (<30) umol/L Total Protein 7.4 (6.3-8.2) g/dL Albumin 3.8 (3.5-5.0) g/dL Amylase 44 (30-110) U/L Lipase 120 (23-300) U/L Urine Color Urine Appearance (Clear) Urine pH (5.0-8.0) Ur Specific Pryor (1.001-1.035) Urine Protein (Negative) Urine Glucose (UA) (Negative) Urine Ketones (Negative) Urine Blood (Negative) Urine Nitrite (Negative) Urine Bilirubin (Negative) Urine Urobilinogen (<2.0) mg/dL Ur Leukocyte Esterase (Negative) Disposition Clinical Impression: Colon cancer, Metastases to the liver, Hyperbilirubinemia Disposition: ADMITTED IP TO THIS [facility] Condition: Stable Is patient prescribed a controlled substance at d/c from ED?: No Referrals: David Alcantara DO [Primary Care Provider] - 1-2 days Decision to Admit Reason: Admit from EC Decision Date: 11/26/20 Decision Time: 15:54
[2020-11-26 13:19] LABS: Basophils % (A) 0 %; Eosinophils # (A) 0.3 k/uL (0-0.7); Eosinophils % (A) 4 %; HCT 42.4 % (39.0-53.0); Lymphocytes # (A) 1.4 k/uL (1.0-4.8); Lymphocytes % (A) 19 %; MCH 32.8 pg (25.0-35.0); MCV 99.4 fL (80.0-100.0); Mean Platelet Volume 8.1; Monocytes # (A) 0.4 k/uL (0-1.0); Monocytes % (A) 5 %; Neutrophils # (A) 5.1 k/uL (1.3-7.7); Neutrophils % (A) 70 %; Platelet Count 283 k/uL (150-450); RBC 4.26 m/uL (4.30-5.90); RDW 13.1 % (11.5-15.5); WBC 7.3 k/uL (3.8-10.6)
[2020-11-26 13:22] LABS: Appearance,Urine Clear (Clear); Bilirubin,Urine 1+ (Negative); Blood,Urine Negative (Negative); Color,Urine Yellow; Glucose,Urine (UA) Negative (Negative); Ketones,Urine Negative (Negative); Leukocyte Esterase,Urine Negative (Negative); Nitrite,Urine Negative (Negative); Protein,Urine Negative (Negative); Specific Gravity,Urine 1.001 (1.001-1.035); Urobilinogen,Urine <2.0 mg/dL (<2.0)
[2020-11-26 13:27] LABS: Partial Thromboplastin Time 28.2 sec (22.0-30.0); Prothrombin Time 10.4 sec (9.0-12.0)
[2020-11-26 13:29] LABS: Lactic Acid, Venous 0.8 mmol/L (0.7-2.0)
[2020-11-26 13:31] LABS: ALT 232 U/L (4-49); AST 227 U/L (17-59); African American GFR (CKD) >90 (>60 ml/min/1.73 sqM); Albumin 3.8 g/dL (3.5-5.0); Amylase 44 U/L (30-110); Anion Gap 10 mmol/L; Bilirubin, Conjugated 6.1 mg/dL (0.0-0.3); Bilirubin, Delta 2.8 mg/dL (0.0-0.2); Bilirubin,Unconjugated 1.5 mg/dL (0.0-1.1); Blood Urea Nitrogen 4 mg/dL (9-20); Calcium 9.4 mg/dL (8.4-10.2); Carbon Dioxide 20 mmol/L (22-30); Chloride 105 mmol/L (98-107); Glucose 114 mg/dL (74-99); Lipase 120 U/L (23-300); Non-African American GFR(CKD) >90 (>60 ml/min/1.73 sqM); Potassium 4.3 mmol/L (3.5-5.1); Sodium 135 mmol/L (137-145); Total Bilirubin 10.4 mg/dL (0.2-1.3); Total Protein 7.4 g/dL (6.3-8.2)
[2020-11-26 13:44] LABS: Alkaline Phosphatase 1506 U/L (38-126)
--- NOTE | 2020-11-26 14:49 | US ---
EXAMINATION TYPE: US gallbladder DATE OF EXAM: 11/26/2020 COMPARISON: NONE CLINICAL HISTORY: hyperbilirubinemia. Jaundice EXAM MEASUREMENTS: Liver Length: 16.3 cm Gallbladder Wall: Surgically absent CBD: 0.4 cm Right Kidney: 11.3x5.7x6.1 cm Dilated biliary ducts throughout liver. Left lobe ? echogenic mass with hypoechoic rim measuring 2.5x 2.2x3.0cm Mid liver large echogenic mass measuring 8.7x6.1x9.3cm , pt states he had radioactive pellets ? Pancreas: wnl Liver: Increased attenuation See comments. Gallbladder: Surgically absent CBD: wnl Right Kidney: wnl IMPRESSION: 1. There may be a masslike area isoechoic to slightly hypoechoic within the left lobe liver. Large sl ightly hyperechoic masses within the mid liver. Consider additional workup with contrast CT. 2. Biliary dilatation in the liver.
[2020-11-26] MEDS ORDERED: NALOXONE 0.4 MG/ML 1 ML VIAL IV PRN (15:48)
[2020-11-26] MEDS ORDERED: HYDROmorphone 0.5 MG/0.5 ML SYRINGE IVP PRN (15:48)
--- NOTE | 2020-11-26 16:30 | CT ---
EXAMINATION TYPE: CT abdomen pelvis w con DATE OF EXAM: 11/26/2020 COMPARISON: Most recent CT July 12, 2020. Most recent PET CT May 17, 2020 HISTORY: Hyperbilirubinemia, history colon cancer CT DLP: 1148.6 mGycm, Automated Exposure Control for Dose Reduction was Utilized. CONTRAST: CT scan of the abdomen and pelvis is performed without oral but with IV Contrast, patient injected wi th 100 mL of Isovue 300. FINDINGS: LUNG BASES: Scattered pulmonary basilar nodules increased in size and number consistent with metastat ic disease. For reference to nodules right lower lobe axial image 11 and 12 to 10 mm long axis increa sed in size from most recent prior. LIVER/GB: Central irregular metastatic lesion increased in size measuring approximately 10.0 cm long axis causing new moderate left-sided intrahepatic biliary dilatation. Gallbladder surgically absent. No extrahepatic biliary dilatation. Possible second lesion in the anterior periphery axial image 29 m easures 3.8 cm long axis not significantly changed from prior was not hypermetabolic on PET/CT. Surgi feng clip along posterior right hepatic margin redemonstrated. PANCREAS: No significant abnormality is seen. SPLEEN: Spleen measures upper limits of normal size at 13.1 cm axial image 26. ADRENALS: No significant abnormality is seen. KIDNEYS: Symmetric cortical medullary uptake and excretion without hydronephrosis seen bilaterally. A few scattered simple-appearing thin-walled cysts throughout both kidneys redemonstrated. Some right sided lesions are more dense than simple fluid, some dependent calcification in the upper pole lesion axial image 39 is noted. These are nonspecific. Mild to moderately distended bladder. BOWEL: Surgical sutures distal colonic level axial image 63 in the upper pelvis redemonstrated. No garcia spicious small or large bowel dilatation. Normal-appearing appendix from cecum. PROSTATE/SEMINAL VESICLES: Enlarged consistent with BPH bulging on bladder base. LYMPH NODES: There are enlarging more suspicious subcentimeter lymph nodes along the aorta in the ret roperitoneum. OSSEOUS STRUCTURES: Scattered vague and diffuse sclerotic lesions suspicious for sclerotic osseous me tastatic disease seen best in the pelvis. OTHER: No significant additional abnormality is seen. IMPRESSION: Worsening central hepatic metastatic lesion causing moderate left-sided extrahepatic bili lurdes dilatation. Worsening pulmonary metastatic disease. Suspect new retroperitoneal adenopathy. Canno t exclude osseous sclerotic metastatic disease. Findings could be confirmed with repeat PET CT if mary ired.
[2020-11-26 22:24] LABS: Hepatitis A Antibody IgM Non-Reactive (Non-Reactive); Hepatitis B Core IgM Non-Reactive (Non-Reactive); Hepatitis B Surface Antigen Non-Reactive (Non-Reactive); Hepatitis C IgG Antibody Non-Reactive (Non-Reactive)
[2020-11-27 11:27] VITALS: BMI 26.4
--- NOTE | 2020-11-27 14:21 | P.CONS ---
History of Present Illness - Reason for Consult Consult date: 11/27/20 hyperbilirubinemia Requesting physician: Flash Moses - Chief Complaint Jaundice, abnormal labs - History of Present Illness This 60-year-old male who presented to the emergency department yesterday for abnormal labs. The patient has a past medical history of colon cancer with metastasis to liver and lungs diagnosed in October 2018. At that time he had a bowel resection due to obstruction, and status post chemo and radiation and was scheduled yesterday with Dr. Amaya to begin his second round of chemo however, noticed on his appointment that he was jaundiced, he had outpatient labs that showed an elevated bilirubin. The patient states he did not notice that he was yellow, states he did notice about a week and half ago his urine started turning dark and he wasn't feeling well overall. He may have had a urinary tract infection although not having any urinary symptoms. Admitting labs WBC 7.3 hemoglobin 14 hematocrit 42 platelet count 283,009 or 1.0 sodium 135 potassium 4.3 BUN or creatinine 0.54 total bilirubin 10.4 conjugated bilirubin 6.1 unconju gated bilirubin 1.5 AST 227 AST 232 alkaline phosphatase 1506 ammonia 15 amylase 44 lipase 120. Acute hepatitis panel nonreactive. Gallbladder ultrasound shows masslike area iso-echoic to slightly hypoechoic within the left lobe liver. Large slightly hyperechoic masses within the mid liver. Consider additional workup with contrast CT. Biliary dilation in the liver. CT of the abdomen and pelvis showed worsening central hepatic metastatic lesion causing moderate left- sided extra padding biliary dilation. Worsening pulmonary metastatic disease. Suspect new retroperitoneal adenopathy. Cannot exclude osseous sclerotic metastatic disease. Findings could be confirmed with repeat PET CT if desired. The patient is denying any abdominal pain, nausea, or vomiting. States bowel movements have been normal last one yesterday. He does have a past history of heavy alcohol abuse and is still currently drinking but not as heavy. Patient states he has not had a repeat colonoscopy since his diagnosis of cancer. Review of Systems REVIEW OF SYSTEMS: CARDIOPULMONARY: No chest pain or shortness of breath. Gastrointestinal: No abdominal pain. No nausea or vomiting. No hematemesis, coffee-ground emesis. No rectal bleeding, or melena. GENITOURINARY: No dysuria or hematuria. Dark urine. MUSCULOSKELETAL: Reports normal range of motion., Joint pain. SKIN: No rashes. Jaundice. ENDOCRINE: No chills, fevers. No excessive weight gain or loss. No polydipsia or polyuria. PSYCHIATRIC: Unremarkable. NEUROLOGY: No change in mental status. Denies dizziness, headache. ENT: Vision unremarkable. CONSTITUTIONAL: No recent weight loss. No fever, chills, night sweats. Past Medical History Past Medical History: Cancer, GERD/Reflux Additional Past Medical History / Comment(s): Constipation since Jul, 2018. 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 Bowel resection with colostomy - October 2018. reversal Nov 2019 Past Anesthesia/Blood Transfusion Reactions: No Reported Reaction Past Psychological History: No Psychological Hx Reported Additional Psychological History / Comment(s): Pt resides alone. He uses crutches if he gets up in the night. He has a L lower leg prosthesis. He drives. Smoking Status: Current every day smoker Past Alcohol Use History: None Reported Additional Past Alcohol Use History / Comment(s): Pt started smoking in 1976 and smokes 1.5 ppd. He normally drinks 5-6 beers per day but has not drank anything in a few days d/t not feeling well. Past Drug Use History: None Reported - Past Family History Father Additional Family Medical History / Comment(s): Father had an arterial injury and of this. Mother Family Medical History: Diabetes Mellitus Sister(s) Family Medical History: Cancer Additional Family Medical History / Comment(s): Brain tumor - . Medications and Allergies Home Medications Medication Instructions Recorded Confirmed Type No Known Home Medications 11/26/20 11/26/20 History Allergies Allergy/AdvReac Type Severity Reaction Status Date / Time No Known Allergies Allergy Verified 11/26/20 13:51 Physical Exam Vitals: Vital Signs Temp Pulse Pulse Pulse Resp BP BP 11/27/20 05:00 98.2 F 59 L 20 11/26/20 21:00 97.8 F 67 15 118/73 11/26/20 20:00 15 11/26/20 17:46 98 F 73 18 125/80 11/26/20 14:31 65 18 124/73 11/26/20 12:21 97.7 F 66 18 132/86 BP Pulse Ox 11/27/20 05:00 110/68 95 11/26/20 21:00 97 11/26/20 20:00 11/26/20 17:46 100 11/26/20 14:31 95 11/26/20 12:21 95 Intake and Output 11/26/20 11/27/20 11/27/20 22:59 06:59 14:59 Other: Voiding Method Toilet Toilet # Voids 2 2 Weight 93.44 kg General appearance: The patient is alert, oriented, appears in no acute distress. HET: Head is normocephalic and atraumatic. Conjunctiva pink. Sclera deeply icteric. Neck: Supple without lymphadenopathy. Trachea midline. Heart: S1 S2. Regular rate and rhythm. Lungs: Clear to auscultation. Abdomen: Soft, nontender, nondistended with bowel sounds. No guarding or rigidity. Skin: No rashes. Jaundice. Extremities: Normal skin color and turgor. No pedal edema. Neurological: No focal deficits. Alert and oriented 3.. Results CBC & Chem 7: 11/26/20 12:59 11/26/20 12:59 Labs: Abnormal Lab Results - Last 24 Hours (Table) 11/26/20 11/26/20 11/26/20 Range/Units 12:59 12:59 12:59 RBC 4.26 L (4.30-5.90) m/uL Sodium 135 L (137-145) mmol/L Carbon Dioxide 20 L (22-30) mmol/L BUN 4 L (9-20) mg/dL Creatinine 0.54 L (0.66-1.25) mg/dL Glucose 114 H (74-99) mg/dL Total Bilirubin 10.4 H (0.2-1.3) mg/dL Conjugated Bilirubin 6.1 H (0.0-0.3) mg/dL Unconjugated Bilirubin 1.5 H (0.0-1.1) mg/dL Delta Bilirubin 2.8 H (0.0-0.2) mg/dL AST 227 H (17-59) U/L ALT 232 H (4-49) U/L Alkaline Phosphatase 1506 H (38-126) U/L Urine Bilirubin 1+ H (Negative) Comments: Gallbladder ultrasound shows masslike area iso-echoic to slightly hypoechoic within the left lobe liver. Large slightly hyperechoic masses within the mid liver. Consider additional workup with contrast CT. Biliary dilation in the liver. CT of the abdomen and pelvis showed worsening central hepatic metastatic lesion causing moderate left-sided extra padding biliary dilation. Worsening pulmonary metastatic disease. Suspect new retroperitoneal adenopathy. Cannot exclude osseous sclerotic metastatic disease. Findings could be confirmed with repeat PET CT if desired Assessment and Plan (1) Hyperbilirubinemia Narrative/Plan: 60-year-old male with a history of metastatic colon cancer with metastasis to the liver and lungs diagnosed in 2019 presented to the emergency department for further evaluation of jaundice. The patient was scheduled yesterday with Dr. Amaya to begin chemotherapy, when he got to the office they noticed that he was jaundiced and had outpatient labs and sent to the emergency department for further evaluation. Patient states he did not notice that he had yellowing of t he skin but did notice that he had dark urine started about 1-2 weeks ago. On admission he was noted to have a total bilirubin of 10.4 AST 227 heel T2 32 alkaline phosphatase 1506. He had an ultrasound of the abdomen and CT of the abdomen showing worsening of hepatic metastatic lesion is a moderate left-sided extrahepatic biliary dilation. Worsening pulmonary metastatic disease. Suspect new retroperitoneal adenopathy. Cannot exclude osseous sclerotic metastatic disease. Case discussed with oncology Dr. Loredo and Dr. Amaya, for treatment options including tranferring patient to tertiary center for ERCP with stenting versus PTC. Will proceed with consulting interventional radiology for p ercutaneous transhepatic cholangiogram. Current Visit: Yes Status: Acute Code(s): E80.6 - OTHER DISORDERS OF BILIRUBIN METABOLISM SNOMED Code(s): 08516372 (2) Colon cancer Current Visit: Yes Status: Acute Code(s): C18.9 - MALIGNANT NEOPLASM OF COLON, UNSPECIFIED SNOMED Code(s): 566242692 (3) Metastases to the liver Current Visit: Yes Status: Acute Code(s): C78.7 - SECONDARY MALIG NEOPLASM OF LIVER AND INTRAHEPATIC BILE DUCT SNOMED Code(s): 08425125 Plan: 1. Continue symptomatic and supportive care 2. Repeat CMP daily 3. Appreciate recommendations from oncology 4. Will consult radiology for percutaneous transhepatic cholangiogram 5. Avoid hepatotoxic medications Thank you for this consultation, we will continue to follow. Dr. Brit Mccormick I agree with the dictator's note, documented as a scribe by Stephanie Prescott
--- NOTE | 2020-11-27 14:25 | P.CONS ---
History of Present Illness - Reason for Consult Consult date: 11/27/20 jaundice, met colon adenocarcinoma Requesting physician: Flash Moess - Chief Complaint jaundice, malaize - History of Present Illness Mr. Weber presented with intermittent, progressive abdominal pain, worsening constipation and about 30 pounds weight loss over the previous 3 mo when he presented to [facility] October 2018. Abd Xray revealed evidence of dilated small bowel loops, CT AP 11/02/18 revealed several hypodense lesions in the liver, largest about 2.2cm, mass like area in mid-descending colon and several loops of small bowel and colon with marked dilatation. CBC and iron studies revealed iron deficiency anemia, CEA was 5.6. 11/03/18 he underwent segmental resection of sigmoid colon and creation of temporary colostomy, pathology revealed grade 2, invasive adenocarcinoma, no perforation, no LVI, negative margins,T3 lesion, total 22 regional nodes were negative, molecular studies showed MSI-stable, HER2/TISHA negative, NRAS, KRAS, BRAF mutations were negative. 12/13/18, MRI of the liver showed 4 liver lesions, 3 in right hepatic lobe, largest 3.6cm, one in central mid liver, 1.8cm. 12/13/18, CT chest revealed non specific mediastinal node. 01/25/2019, he started FOLFOX/Avastin regimen. 03/14/19 CT CAP revealed improvement in his liver lesions. 05/16/19 MRI of liver revealed improvement in his liver lesions. 05/16/19, repeat CT scan of chest revealed possible osseous sclerotic lesions. Bone scan 06/13/19 was negative for metastatic disease, reviewed with Radiologist. He completed 12 cycles of FOLFOX/avastin on 07/07/2019. 07/28/19 PET did not show any osseous lesions, improvement in liver lesions. Liver MRI 08/07/19 showed continuing improvement in his liver lesions. He started xeloda 08/24/19. Repeat imaging in August 2019 continued to show improvement in his disease. He was referred to Dr Knutson, underwent resection of his primary and revision of colostomy and partial hepatectomy and intra operative ablation of liver lesions. 12/05/19 he went back to [facility] for attempted ablation of one remaining liver lesion, however, it was cancelled due to left intrahepatic biliary duct dilatation. 01/03/20 he underwent TheraSphere radioembolization of segment 1, segment 4A and segment 8. On 01/20/2020, his LFT went up (possibly related to recent TheraSphere), CEA was 12. 01/31/[address] CAP showed ? progression of liver lesions, was reviewed at tumor board at [facility] and felt there was no recurrence. 03/21/20 CEA was 7.9. Xeloda was held. 04/24/[address] CAP revealed improvement in the liver finding-felt to be secondary to previous liver directed therapy, however, there was 2 new lung nodules. 05/17/20 PET revealed no uptake in the small 2 lungs nodules. 07/12/[address] CAP revealed new small (subcentimeter) lung nodules,otherwise stable. He did not schedule his follow up CT scan of chest until 11/07/20 which revealed disease progression in lungs and liver. He had been off FOLFOX and avastin for over a year so, plans were to resume this treatment. He was in ofc yesterday to start when he reported feeling like he already had chemo, proressive weakness, he was noted to be jaundiced, he reports dark urine for just over a week. He denied F, oral irritation, N,V, cough, chest discomfort, he reported RUQ discomfort at the ofc denies now, he states his stool has become progressively runny, denied bleeding or black stool. Review of Systems 14 point ROS is neg except as stated in HPI Past Medical History Past Medical History: Cancer, GERD/Reflux Additional Past Medical History / Comment(s): Constipation since Jul, 2018. 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 Bowel resection with colostomy - October 2018. reversal Nov 2019 Past Anesthesia/Blood Transfusion Reactions: No Reported Reaction Past Psychological History: No Psychological Hx Reported Additional Psychological History / Comment(s): Pt resides alone. He uses crutches if he gets up in the night. He has a L lower leg prosthesis. He drive s. Smoking Status: Current every day smoker Past Alcohol Use History: None Reported Additional Past Alcohol Use History / Comment(s): Pt started smoking in 1976 and smokes 1.5 ppd. He normally drinks 5-6 beers per day but has not drank anything in a few days d/t not feeling well. Past Drug Use History: None Reported - Past Family History Father Additional Family Medical History / Comment(s): Father had an arterial injury and of this. Mother Family Medical History: Diabetes Mellitus Sister(s) Family Medical History: Cancer Additional Family Medical History / Comment(s): Brain tumor - . Medications and Allergies Home Medications Medication Instructions Recorded Confirmed Type No Known Home Medications 11/26/20 11/26/20 History Allergies Allergy/AdvReac Type Severity Reaction Status Date / Time No Known Allergies Allergy Verified 11/26/20 13:51 Physical Exam Vitals: Vital Signs Temp Pulse Pulse Pulse Resp BP BP 11/27/20 05:00 98.2 F 59 L 20 11/26/20 21:00 97.8 F 67 15 118/73 11/26/20 20:00 15 11/26/20 17:46 98 F 73 18 125/80 11/26/20 14:31 65 18 124/73 11/26/20 12:21 97.7 F 66 18 132/86 BP Pulse Ox 11/27/20 05:00 110/68 95 11/26/20 21:00 97 11/26/20 20:00 11/26/20 17:46 100 11/26/20 14:31 95 11/26/20 12:21 95 Intake and Output 11/26/20 11/27/20 11/27/20 22:59 06:59 14:59 Other: Voiding Method Toilet Toilet # Voids 2 2 Weight 93.44 kg - Constitutional General appearance: average body habitus, cooperative, no acute distress - EENT coated tongue Eyes: EOMI, scleral icterus ENT: hearing grossly normal - Neck Neck: no lymphadenopathy - Respiratory Respiratory: bilateral: rhonchi (expiratory) - Cardiovascular Rhythm: regular Heart sounds: normal: S1, S2 Abnormal Heart Sounds: no systolic murmur, no diastolic murmur, no rub, no S3 Gallop, no S4 Gallop, no click, no other leg Peripheral Edema: right: None, left: Other (amputation) - Gastrointestinal General gastrointestinal: no absent bowel sounds, no decreased bowel sounds, no distended, no hepatomegaly, no hyperactive bowel sounds, normal bowel sounds, no organomegaly, no rigid, no scaphoid, soft, no splenomegaly, no tenderness, no umbilical hernia, no ventral hernia - Integumentary Integumentary: jaundiced - Neurologic Neurologic: CNII-XII intact - Musculoskeletal Musculoskeletal: strength equal bilaterally - Psychiatric Psychiatric: A&O x's 3, intact judgment & insight Results CBC & Chem 7: 11/26/20 12:59 11/26/20 12:59 Labs: Abnormal Lab Results - Last 24 Hours (Table) 11/26/20 11/26/20 11/26/20 Range/Units 12:59 12:59 12:59 RBC 4.26 L (4.30-5.90) m/uL Sodium 135 L (137-145) mmol/L Carbon Dioxide 20 L (22-30) mmol/L BUN 4 L (9-20) mg/dL Creatinine 0.54 L (0.66-1.25) mg/dL Glucose 114 H (74-99) mg/dL Total Bilirubin 10.4 H (0.2-1.3) mg/dL Conjugated Bilirubin 6.1 H (0.0-0.3) mg/dL Unconjugated Bilirubin 1.5 H (0.0-1.1) mg/dL Delta Bilirubin 2.8 H (0.0-0.2) mg/dL AST 227 H (17-59) U/L ALT 232 H (4-49) U/L Alkaline Phosphatase 1506 H (38-126) U/L Urine Bilirubin 1+ H (Negative) CT scan - abdomen: report reviewed CT scan - pelvis: report reviewed US - abdomen: report reviewed Assessment and Plan (1) Colon cancer Narrative/Plan: Recent disease progression in liver and lungs after about a year of stable disease. Due to start FOLFOX avastin. Once current acute condition is managed he will go on to treatment. Current Visit: Yes Status: Acute Priority: High Code(s): C18.9 - MALIGNANT NEOPLASM OF COLON, UNSPECIFIED SNOMED Code(s): 332958284 (2) Hyperbilirubinemia Narrative/Plan: Imaging reports and labs reviewed. Suspect obstruction. GI consulted. MDs have discussed case. Recs were for transfer for stent-if even possible-vs PTC drain. Drain felt to have most predictable outcome and could get pt to treatment sooner. Current Visit: Yes Status: Acute Priority: High Code(s): E80.6 - OTHER DISORDERS OF BILIRUBIN METABOLISM SNOMED Code(s): 96408684 (3) Metastases to the liver Current Visit: Yes Status: Chronic Priority: High Code(s): C78.7 - SECONDARY MALIG NEOPLASM OF LIVER AND INTRAHEPATIC BILE DUCT SNOMED Code(s): 00101996 Plan: Doctor attests: I performed a history and physical examination of this patient, developed impression and plan of care, discussed with dictator. I agree with dictators note, documented as a scribe.
--- NOTE | 2020-11-27 15:25 | P.HPIM ---
History of Present Illness H&P Date: 11/27/20 HISTORY OF PRESENT ILLNESS This is a 60-year-old male patient of Dr. Alcantara with long history of colon cancer status post segmental resection of sigmoid colon creation of temporary colostomy October [address] Angel with subsequent reversal done at [facility] with subsequent chemotherapy. 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 Patient is a poor historian. Patient states that he was to start chemotherapy for stage IV colon cancer and was at Dr. Amaya's office and was found to be jaundiced and was sent in the hospital for further evaluation. WBC 7.3 hemoglobin 14 hematocrit 42 platelet count 283, sodium 135, potassium 4.3 BUN 4, creatinine 0.54, total bilirubin 10.4, conjugated bilirubin 6.1, unconjugated bilirubin 1.5. AST 227, AST 232, alkaline phosphatase 1506, ammonia 15, amylase 44, lipase 120. Acute hepatitis panel nonreactive. Gallbladder ultrasound shows masslike area iso-echoic to slightly hypoechoic within the left lobe liver. Large slightly hyperechoic masses within the mid liver. Consider additional workup with contrast CT. Biliary dilation in the liver. CT of the abdomen and pelvis showed worsening central hepatic metastatic lesion causing moderate left-sided extra padding biliary dilation. Worsening pulmonary metastatic disease. Suspect new retroperitoneal adenopathy. Cannot exclude osseous sclerotic metastatic disease. Findings could be confirmed with repeat PET CT if desired. The patient is denying any abdominal pain, nausea, or vomiting. States bowel movements have been normal last one yesterday. He does have a past history of heavy alcohol abuse and is still currently drinking but not as heavy. Patient states he has not had a repeat colonoscopy since his diagnosis of cancer. Patient admitted to the oncology unit and consults are in place for GI, oncology, interventional radiology for percutaneous transhepatic cholangiogram. REVIEW OF SYSTEMS Constitutional: No fever, no chills, no night sweats. No weight change. No weakness, fatigue or lethargy. No daytime sleepiness. EENT: No headache. No blurred vision or double vision, no loss of vision. No loss of Hearing, no ringing in the ears, no dizziness. No nasal drainage or congestion. No epistaxis. No sore throat. Lungs: No shortness of breath, cough, no sputum production. No wheezing. Cardiovascular: No chest pain, no lower extremity edema. No palpitations. No paroxysmal nocturnal dyspnea. No orthopnea. No lightheadedness or dizziness. No syncopal episodes. Abdominal: Denies abdominal pain. No nausea, vomiting. No diarrhea. No constipation. No bloody or tarry stools.. No loss of appetite. Genitourinary: No dysuria, increased frequency, urgency. No urinary retention. Change in urine color. Musculoskeletal: No myalgias. No muscle weakness, no gait dysfunction, no frequent falls. No back pain. No neck pain. Integumentary: No wounds, no lesions. No rash or pruritus. No unusual bruising. No change in hair or nails. Neurologic: No aphasia. No facial droop. No change in mentation. No head injury. No headache. No paralysis. No paresthesia. Psychiatric: No depression. No anxiety. No mood swings. Endocrine: No abnormal blood sugars. No weight change. SOCIAL HISTORY Patient is a smoker of one pack per day for greater than 40 years. He also has history of alcohol abuse currently down to a few beers every day. He is single. FAMILY HISTORY Mother is and patient does not know her medical history. Father is at age 87 after a fall which she states caused hemorrhage of his kidney. Patient has 5 sisters and 2 brothers and 2 sisters have passed one from brain cancer and 1 after a fall. He does not have any children. PHYSICAL EXAMINATION Gen: This is a 60-year-old male. He is resting in bed and appears to be comfortable. HEENT: Head is atraumatic, normocephalic. Pupils equal, round. Sclerae is + icteric. NECK: Supple. No JVD. No lymphadenopathy. No thyromegaly. LUNGS: Clear to auscultation. No wheezes or rhonchi. No intercostal retracti ons. HEART: Regular rate and rhythm. No murmur. ABDOMEN: Soft. Bowel sounds are present. No masses. No tenderness. EXTREMITIES: No pedal edema. No calf tenderness. NEUROLOGICAL: Patient is awake, alert and oriented x3. Cranial nerves 2 through 12 are grossly intact. ASSESSMENT AND PLAN 1. Hyperbilirubinemia with jaundice. Consult with GI appreciated, repeat blood work in the morning, consult was admitted for interventional radiology for percutaneous transhepatic cholangiogram, continue IV fluids 0.9 normal saline at 75 mL per hour, clear liquid diet. 2. Metastatic colon cancer with metastases to the liver and lungs. Consult with oncology appreciated. 3. Tobacco use and dependence. Nicotine patch. 4. Alcohol abuse, monitor for DTs. 5. GI prophylaxis. Protonix. 6. DVT prophylaxis. SCDs and BJORN hose right leg. 7. History of amputation of left foot from farm accident. Patient will be admitted to the hospital for a minimum of 2 night stay. DISCHARGE PLAN Home. Impression and plan of care have been directed as dictated by the signing physician. Melia Perez nurse practitioner acting as scribe for signing physici an. Past Medical History Past Medical History: Cancer, GERD/Reflux Additional Past Medical History / Comment(s): Constipation since Jul, 2018. 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 Bowel resection with colostomy - October 2018. reversal Nov 2019 Past Anesthesia/Blood Transfusion Reactions: No Reported Reaction Past Psychological History: No Psychological Hx Reported Additional Psychological History / Comment(s): Pt resides alone. He uses crutches if he gets up in the night. He has a L lower leg prosthesis. He drives. Smoking Status: Current every day smoker Past Alcohol Use History: None Reported Additional Past Alcohol Use History / Comment(s): Pt started smoking in 1976 and smokes 1.5 ppd. He normally drinks 5-6 beers per day but has not drank anything in a few days d/t not feeling well. Past Drug Use History: None Reported - Past Family History Father Additional Family Medical History / Comment(s): Father had an arterial injury and of this. Mother Family Medical History: Diabetes Mellitus Sister(s) Family Medical History: Cancer Additional Family Medical History / Comment(s): Brain tumor - . Medications and Allergies Home Medications Medication Instructions Recorded Confirmed Type No Known Home Medications 11/26/20 11/26/20 History Allergies Allergy/AdvReac Type Severity Reaction Status Date / Time No Known Allergies Allergy Verified 11/26/20 13:51 Physical Exam Vitals: Vital Signs Temp Pulse Pulse Pulse Resp BP BP 11/27/20 05:00 98.2 F 59 L 20 11/26/20 21:00 97.8 F 67 15 118/73 11/26/20 20:00 15 11/26/20 17:46 98 F 73 18 125/80 11/26/20 14:31 65 18 124/73 11/26/20 12:21 97.7 F 66 18 132/86 BP Pulse Ox 11/27/20 05:00 110/68 95 11/26/20 21:00 97 11/26/20 20:00 11/26/20 17:46 100 11/26/20 14:31 95 11/26/20 12:21 95 Intake and Output 11/26/20 11/27/20 11/27/20 22:59 06:59 14:59 Other: Voiding Method Toilet Toilet # Voids 2 2 Weight 93.44 kg Results CBC & Chem 7: 11/26/20 12:59 11/26/20 12:59 Labs: Abnormal Lab Results - Last 24 Hours (Table) 11/26/20 11/26/20 11/26/20 Range/Units 12:59 12:59 12:59 RBC 4.26 L (4.30-5.90) m/uL Sodium 135 L (137-145) mmol/L Carbon Dioxide 20 L (22-30) mmol/L BUN 4 L (9-20) mg/dL Creatinine 0.54 L (0.66-1.25) mg/dL Glucose 114 H (74-99) mg/dL Total Bilirubin 10.4 H (0.2-1.3) mg/dL Conjugated Bilirubin 6.1 H (0.0-0.3) mg/dL Unconjugated Bilirubin 1.5 H (0.0-1.1) mg/dL Delta Bilirubin 2.8 H (0.0-0.2) mg/dL AST 227 H (17-59) U/L ALT 232 H (4-49) U/L Alkaline Phosphatase 1506 H (38-126) U/L Urine Bilirubin 1+ H (Negative) Thrombosis Risk Factor Assmnt - Choose All That Apply Each Factor Represents 1 point: Age 41-60 years Thrombosis Risk Factor Assessment Total Risk Factor Score: 1 Thrombosis Risk Factor Assessment Level: Low Risk
[2020-11-27] MEDS: NICOTINE 21MG/24HR PATCH TRANSDERM SCH (16:07)
[2020-11-28 06:46] LABS: HCT 38.5 % (39.0-53.0); HGB 12.7 gm/dL (13.0-17.5); MCH 33.1 pg (25.0-35.0); MCHC 32.9 g/dL (31.0-37.0); MCV 100.7 fL (80.0-100.0); Platelet Count 260 k/uL (150-450); RBC 3.83 m/uL (4.30-5.90); RDW 13.3 % (11.5-15.5); WBC 6.3 k/uL (3.8-10.6)
[2020-11-28] MEDS: PANTOPRAZOLE 40 MG TABLET PO SCH (08:15)
[2020-11-28] MEDS: NICOTINE 21MG/24HR PATCH TRANSDERM SCH (08:19)
[2020-11-28 11:22] LABS: African American GFR (CKD) 128.4 (60.0-200.0); Albumin 3.2 g/dL (3.80-4.90); Albumin/Globulin Ratio 1.19 (1.60-3.17); Anion Gap 6.4 mmol/L (4.00-12.00); Calcium 8.4 mg/dL (8.7-10.3); Carbon Dioxide 22.6 mmol/L (21.6-31.8); Globulin 2.7 g/dL (1.6-3.3); Non-African American GFR(CKD) 110.8 (60.0-200.0); Potassium 4.2 mmol/L (3.5-5.5); Total Bilirubin 14.6 mg/dL (0.3-1.2); Total Protein 5.9 g/dL (6.2-8.2)
--- NOTE | 2020-11-28 12:30 | P.TRANS ---
Providers Date of admission: 11/26/20 15:48 Expected date of discharge: 11/28/20 Attending physician: Ramiro Najera Consults: 11/26/20 15:51 Consult Physician Routine Consulting Provider: Kaveh Amaya Consult Reason/Comments: Hyperbilirubinemia Do you want consulting provider notified?: Yes Consult Physician Routine Consulting Provider: Lou Mccormick Consult Reason/Comments: Hyperbilirubinemia Do you want consulting provider notified?: Yes Primary care physician: [facility] Course: HISTORY OF PRESENT ILLNESS This is a 60-year-old male patient of Dr. Alcantara with long history of colon cancer status post segmental resection of sigmoid colon creation of temporary colostomy October [address] Angel with [facility] with subsequent chemotherapy. 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 Patient is a poor historian. Patient states that he was to start chemotherapy for stage IV colon cancer and was at Dr. Amaya's office and was found to be jaundiced and was sent in the hospital for further evaluation. WBC 7.3 hemoglobin 14 hematocrit 42 platelet count 283, sodium 135, potassium 4.3 BUN 4, creatinine 0.54, total bilirubin 10.4, conjugated bilirubin 6.1, unconjugated bilirubin 1.5. AST 227, AST 232, alkaline phosphatase 1506, ammonia 15, amylase 44, lipase 120. Acute hepatitis panel nonreactive. Gallbladder ultrasound shows masslike area iso-echoic to slightly hypoechoic within the left lobe liver. Large slightly hyperechoic masses within the mid liver. Consider additional workup with contrast CT. Biliary dilation in the liver. CT of the abdomen and pelvis showed worsening central hepatic metastatic lesion causing moderate left-sided extra padding biliary dilation. Worsening pulmonary metastatic disease. Suspect new retroperitoneal adenopathy. Cannot exclude osseous sclerotic metastatic disease. Findings could be confirmed with repeat PET CT if desired. The patient is denying any abdominal pain, nausea, or vomiting. States bowel movements have been normal last one yesterday. He does have a past history of heavy alcohol abuse and is still currently drinking but not as heavy. Patient states he has not had a repeat colonoscopy since his diagnosis of cancer. Patient admitted to the oncology unit and consults are in place for GI, oncology, interventional radiology for percutaneous transhepatic cholangiogram. 11/28: Patient was scheduled today with interventional radiology for percutaneous transhepatic cholangiogram but INR is unable to do this procedure due to equipment and recommended transfer to [facility]. Patient is denying any abdominal pain. Repeat lab work reveals total bilirubin of 14.6, AST 197, ALT 212, alkaline phosphatase 1400. Sodium 133. BUN 6 and creatinine 0.6. Otherwise electrolytes are normal. WBC 6.3 and hemoglobin 12.7, platelet count 260. GI is also recommended transfer to [facility]. client integration manager is working on transfer, patient will be transferred once arrangements are completed. REVIEW OF SYSTEMS Constitutional: No fever, no chills, no night sweats. No weight change. No weakness, fatigue or lethargy. No daytime sleepiness. EENT: No headache. No blurred vision or double vision, no loss of vision. No nasal drainage or congestion. No epistaxis. No sore throat. Lungs: No shortness of breath, cough, no sputum production. No wheezing. Cardiovascular: No chest pain, no lower extremity edema. No palpitations. No paroxysmal nocturnal dyspnea. No orthopnea. No lightheadedness or dizziness. No syncopal episodes. Abdominal: Denies abdominal pain. No nausea, vomiting. No diarrhea. No constipation. No bloody or tarry stools.. No loss of appetite. Genitourinary: No dysuria, increased frequency, urgency. No urinary retention. Change in urine color. Musculoskeletal: No myalgias. No muscle weakness, no gait dysfunction, no frequent falls. No back pain. No neck pain. Integumentary: No wounds, no lesions. No rash or pruritus. No unusual bruising. No change in hair or nails. Neurologic: No aphasia. No facial droop. No change in mentation. No head injury. No headache. No paralysis. No paresthesia. Psychiatric: No depression. No anxiety. No mood swings. Endocrine: No abnormal blood sugars. No weight change. PHYSICAL EXAMINATION Gen: This is a 60-year-old male. He is resting in bed and appears to be comfortable. HEENT: Head is atraumatic, normocephalic. Pupils equal, round. Sclerae is icteric. NECK: Supple. No JVD. No lymphadenopathy. No thyromegaly. LUNGS: Clear to auscultation. No wheezes or rhonchi. No intercostal retractions. HEART: Regular rate and rhythm. No murmur. ABDOMEN: Soft. Bowel sounds are present. No masses. No tenderness. EXTREMITIES: No pedal edema. No calf tenderness. NEUROLOGICAL: Patient is awake, alert and oriented x3. Cranial nerves 2 through 12 are grossly intact. ASSESSMENT AND PLAN 1. Hyperbilirubinemia with jaundice. Consult with GI appreciated, repeat blood work in the morning, consult was admitted for interventional radiology unable to perform percutaneous transhepatic cholangiogram, continue IV fluids 0.9 normal saline at 75 mL per hour, clear liquid diet. 2. Metastatic colon cancer with metastases to the liver and lungs. Consult with oncology appreciated. 3. Tobacco use and dependence. Nicotine patch. 4. Alcohol abuse, monitor for DTs. 5. GI prophylaxis. Protonix. 6. DVT prophylaxis. SCDs and BJORN hose right leg. 7. History of amputation of left foot from farm accident. DISCHARGE PLAN Home. Impression and plan of care have been directed as dictated by the signing physician. Melia Perez nurse practitioner acting as scribe for signing physician. Patient Condition at Discharge: Stable Plan - Transfer Summary Transfer Medications: Active Medications Generic Name Dose Route Start Last Admin Trade Name Freq PRN Reason Stop Dose Admin Hydromorphone HCl 0.5 mg 11/26/20 15:48 11/26/20 18:31 Hydromorphone 0.5 Mg/0.5 Ml Syringe IVP 0.5 mg Q3HR PRN Administration Moderate Pain Naloxone HCl 0.2 mg 11/26/20 15:48 Naloxone 0.4 Mg/Ml 1 Ml Vial IV Q2M PRN Opioid Reversal Nicotine 1 patch 11/27/20 15:30 11/28/20 08:19 Nicotine 21mg/24hr Patch TRANSDERM Not Given DAILY MARIO Pantoprazole Sodium 40 mg 11/28/20 07:30 11/28/20 08:15 Pantoprazole 40 Mg Tablet PO 40 mg [id number] MARIO Administration Follow up Appointment(s)/Referral(s): David Alcantara DO [Primary Care Provider] - 1 Week (After discharge from tertiary care [place]) - Out of Hospital Transfer - Req. Specs Out of Hospital Transfer - Requested Specifics: Other Non-Acute
--- NOTE | 2020-11-28 13:28 | P.PN ---
Subjective Progress Note Date: 11/28/20 Principal diagnosis: Obstructive jaundice, unclear if malignant or benign process In follow-up today patient denies nausea, vomiting, he states his urine is getting darker, denies uncontrolled abdominal pain. Objective - Vital Signs Vital signs: Vital Signs Temp 97.8 F 11/28/20 11:14 Pulse 54 L 11/28/20 11:14 Resp 20 11/28/20 11:14 BP 112/72 11/28/20 11:14 Pulse Ox 97 11/28/20 11:14 Intake & Output 11/27/20 11/28/20 11/28/20 18:59 06:59 18:59 Intake Total 1080 Balance 1080 Weight 93.44 kg Intake: Oral 1080 Other: Voiding Method Toilet Toilet # Voids 2 2 - Constitutional General appearance: Present: average body habitus, cooperative, no acute distress - EENT Eyes: Present: EOMI, scleral icterus ENT: Present: hearing grossly normal - Respiratory Details: Respirations are even and unlabored - Gastrointestinal General gastrointestinal: Present: normal bowel sounds, soft - Integumentary Integumentary: Present: jaundiced - Neurologic Neurologic: Present: CNII-XII intact - Musculoskeletal Musculoskeletal: Present: strength equal bilaterally - Psychiatric Psychiatric: Present: A&O x's 3 - Labs CBC & Chem 7: 11/28/20 05:33 11/28/20 05:33 Labs: Abnormal Lab Results - Last 24 Hours (Table) 11/28/20 11/28/20 Range/Units 05:33 05:33 RBC 3.83 L (4.30-5.90) m/uL Hgb 12.7 L (13.0-17.5) gm/dL Hct 38.5 L (39.0-53.0) % MCV 100.7 H (80.0-100.0) fL Sodium 133 L (135-145) mmol/L BUN 6.0 L (9.0-27.0) mg/dL BUN/Creatinine Ratio 10.00 L (12.00-20.00) Ratio Calcium 8.4 L (8.7-10.3) mg/dL Total Bilirubin 14.6 H (0.3-1.2) mg/dL AST 197 H (14-35) U/L ALT 212 H (10-49) U/L Alkaline Phosphatase 1400 H (41-126) U/L Total Protein 5.9 L (6.2-8.2) g/dL Albumin 3.20 L (3.80-4.90) g/dL Albumin/Globulin Ratio 1.19 L (1.60-3.17) g/dL Assessment and Plan (1) Colon cancer Narrative/Plan: Recent disease progression in liver and lungs after about a year of stable disease. Due to start FOLFOX avastin. Once current acute condition is managed he will go on to treatment. Current Visit: Yes Status: Acute Priority: High Code(s): C18.9 - MALIGNANT NEOPLASM OF COLON, UNSPECIFIED SNOMED Code(s): 596230112 (2) Hyperbilirubinemia Narrative/Plan: Imaging reports and labs reviewed. Suspect obstruction. Case has been reviewed by multiple specialists. Plan is for transfer for PTC drain insertion Current Visit: Yes Status: Acute Priority: High Code(s): E80.6 - OTHER DISORDERS OF BILIRUBIN METABOLISM SNOMED Code(s): 89053741 (3) Metastases to the liver Current Visit: Yes Status: Chronic Priority: High Code(s): C78.7 - SECONDARY MALIG NEOPLASM OF LIVER AND INTRAHEPATIC BILE DUCT SNOMED Code(s): 04002559 Plan: Doctor attests: I performed a history and physical examination of this patient, developed impression and plan of care, discussed with dictator. I agree with dictators note, documented as a scribe.
--- NOTE | 2020-11-28 13:31 | P.PN ---
Subjective Progress Note Date: 11/28/20 Principal diagnosis: Hyperbilirubinemia This 60-year-old male who presented to the emergency department for abnormal labs. The patient has a past medical history of colon cancer with metastasis to liver and lungs diagnosed in October 2018. At that time he had a bowel resection due to obstruction, and status post chemo and radiation and was scheduled yesterday with Dr. Amaya to begin his second round of chemo however, noticed on his appointment that he was jaundiced, he had outpatient labs that showed an elevated bilirubin. The patient states he did not notice that he was yellow, states he did notice about a week and half ago his urine started turning dark and he wasn't feeling well overall. He may have had a urinary tract infection although not having any urinary symptoms. Admitting labs WBC 7.3 hemoglobin 14 hematocrit 42 platelet count 283,009 or 1.0 sodium 135 potassium 4.3 BUN or creatinine 0.54 total bilirubin 10.4 conjugated bilirubin 6.1 unconjugated ricardo irubin 1.5 AST 227 AST 232 alkaline phosphatase 1506 ammonia 15 amylase 44 lipase 120. Acute hepatitis panel nonreactive. Gallbladder ultrasound shows masslike area iso-echoic to slightly hypoechoic within the left lobe liver. Large slightly hyperechoic masses within the mid liver. Consider additional workup with contrast CT. Biliary dilation in the liver. CT of the abdomen and pelvis showed worsening central hepatic metastatic lesion causing moderate left- sided extra padding biliary dilation. Worsening pulmonary metastatic disease. Suspect new retroperitoneal adenopathy. Cannot exclude osseous sclerotic metastatic disease. Findings could be confirmed with repeat PET CT if desired. She does have a history of heavy alcohol abuse in the past and currently still drinking, but not as heavy. 11/28/2020 patient was seen and examined at the bedside. He denies any abdominal pain, nausea, or vomiting. Interventional radiology was consulted for percutaneous transhepatic cholangiogram. However nursing and denies that the interventional radiologist states that they do not have a proper drainage tube and recommend transfer to tertiary center. Today's total bilirubin 14.6 AST 197 AST 212 alkaline phosphatase 1400. Agree with transfer to tertiary center for further evaluation and management with possible ERCP/EUS with stenting or percutaneous transhepatic cholangiogram. Objective - Vital Signs Vital signs: Vital Signs Temp 97.8 F 11/28/20 05:00 Pulse 61 11/28/20 05:00 Resp 16 11/28/20 05:00 BP 102/64 11/28/20 05:00 Pulse Ox 97 11/28/20 05:00 Intake & Output 11/27/20 11/28/20 11/28/20 18:59 06:59 18:59 Intake Total 1080 Balance 1080 Weight 93.44 kg Intake: Oral 1080 Other: Voiding Method Toilet Toilet # Voids 2 2 - Exam General appearance: The patient is alert, oriented, appears in no acute distress. HET: Head is normocephalic and atraumatic. Conjunctiva pink. Sclera deeply icteric. Neck: Supple without lymphadenopathy. Abdomen: Soft, nontender, nondistended with bowel sounds. No guarding or rigidity. Extremities: Normal skin color and turgor. No pedal edema Skin: No rashes, jaundice. Neurological: No focal deficits. Alert and oriented 3. - Labs CBC & Chem 7: 11/28/20 05:33 11/28/20 05:33 Labs: Abnormal Lab Results - Last 24 Hours (Table) 11/28/20 Range/Units 05:33 RBC 3.83 L (4.30-5.90) m/uL Hgb 12.7 L (13.0-17.5) gm/dL Hct 38.5 L (39.0-53.0) % MCV 100.7 H (80.0-100.0) fL Assessment and Plan (1) Hyperbilirubinemia Narrative/Plan: 60-year-old male with a history of metastatic colon cancer with metastasis to the liver and lungs diagnosed in 2019 presented to the emergency department for further evaluation of jaundice. The patient was scheduled yesterday with Dr. Amaya to begin chemotherapy, when he got to the office they noticed that he was jaundiced and had outpatient labs and sent to the emergency department for further evaluation. Patient states he did not notice that he had yellowing of the skin but did notice that he had dark urine started about 1-2 weeks ago. On admission he was noted to have a total bilirubin of 10.4 AST 227 heel T2 32 alkaline phosphatase 1506. He had an ultrasound of the abdomen and CT of the abdomen showing worsening of hepatic metastatic lesion is a moderate left-sided extrahepatic biliary dilation. Worsening pulmonary metastatic disease. Suspect new retroperitoneal adenopathy. Cannot exclude osseous sclerotic metastatic disease. Case discussed with oncology Dr. Loredo and Dr. Amaya, for treatment options including tranferring patient to tertiary center for ERCP with stenting versus PTC. Will proceed with consulting interventional radiology for percutaneous transhepatic cholangiogram. Current Visit: Yes Status: Acute Priority: High Code(s): E80.6 - OTHER DISORDERS OF BILIRUBIN METABOLISM SNOMED Code(s): 46427605 (2) Colon cancer Current Visit: Yes Status: Acute Priority: High Code(s): C18.9 - MALIGNANT NEOPLASM OF COLON, UNSPECIFIED SNOMED Code(s): 524349740 (3) Metastases to the liver Current Visit: Yes Status: Chronic Priority: High Code(s): C78.7 - SECONDARY MALIG NEOPLASM OF LIVER AND INTRAHEPATIC BILE DUCT SNOMED Code(s): 05434743 Plan: 1. Continue symptomatic and supportive care 2. Repeat CMP daily 3. Appreciate recommendations from oncology 4. Interventional radiology consulted for percutaneous transhepatic cholangiogram, , however they do not have appropriate sized drainage tube and recommend transfer to tertiary center for further evaluation and treatment 5. Avoid hepatotoxic medications 6. Recommend transfer to tertiary center such as [facility] for evaluation for ERCP with EUS and stenting or possible percutaneous transhepatic cholangiogram. Thank you for this consultation, we will continue to follow. Dr. Brit Mccormick I agree with the dictator's note, documented as a scribe by Stephanie English.
[2020-11-29] MEDS: PANTOPRAZOLE 40 MG TABLET PO SCH (08:03)
[2020-11-29] MEDS: NICOTINE 21MG/24HR PATCH TRANSDERM SCH (08:04)
[2020-11-29 09:30] LABS: ALT 213 U/L (4-49); AST 193 U/L (17-59); African American GFR (CKD) >90 (>60 ml/min/1.73 sqM); Albumin 3.2 g/dL (3.5-5.0); Albumin/Globulin Ratio 0.9; Anion Gap 10 mmol/L; Blood Urea Nitrogen 6 mg/dL (9-20); Calcium 9.2 mg/dL (8.4-10.2); Carbon Dioxide 20 mmol/L (22-30); Chloride 103 mmol/L (98-107); Globulin 3.6 g/dL; Glucose 137 mg/dL (74-99); Non-African American GFR(CKD) >90 (>60 ml/min/1.73 sqM); Potassium 4.3 mmol/L (3.5-5.1); Sodium 133 mmol/L (137-145); Total Protein 6.8 g/dL (6.3-8.2)
[2020-11-29 09:37] LABS: Total Bilirubin 16.2 mg/dL (0.2-1.3)
[2020-11-29 09:38] LABS: Alkaline Phosphatase 1430 U/L (38-126)
--- NOTE | 2020-11-29 10:17 | P.PN ---
Subjective Progress Note Date: 11/29/20 HISTORY OF PRESENT ILLNESS This is a 60-year-old male patient of Dr. Alcantara with long history of colon cancer status post segmental resection of sigmoid colon creation of temporary colostomy October [address] Angel with subsequent reversal done at [facility] with subsequent chemotherapy. 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 Patient is a poor historian. Patient states that he was to start chemotherapy for stage IV colon cancer and was at Dr Vikas Amaya's office and was found to be jaundiced and was sent in the hospital for further evaluation. WBC 7.3 hemoglobin 14 hematocrit 42 platelet count 283, sodium 135, potassium 4.3 BUN 4, creatinine 0.54, total bilirubin 10.4, conjugated bilirubin 6.1, unconjugated bilirubin 1.5. AST 227, AST 232, alkaline phosphatase 1506, ammonia 15, amylase 44, lipase 120. Acute hepatitis panel nonreactive. Gallbladder ultrasound shows masslike area iso-echoic to slightly hypoechoic within the left lobe liver. Large slightly hyperechoic masses within the mid liver. Consider additional workup with contrast CT. Biliary dilation in the liver. CT of the abdomen and pelvis showed worsening central hepatic metastatic lesion causing moderate left-sided extra padding biliary dilation. Worsening pulmonary metastatic disease. Suspect new retroperitoneal adenopathy. Cannot exclude osseous sclerotic metastatic disease. Findings could be confirmed with repeat PET CT if desired. The patient is denying any abdominal pain, nausea, or vomiting. States bowel movements have been normal last one yesterday. He does have a past history of heavy alcohol abuse and is still currently drinking but not as heavy. Patient states he has not had a repeat colonoscopy since his diagnosis of cancer. Patient admitted to the oncology unit and consults are in place for GI, oncology, interventional radiology for percutaneous transhepatic cholangiogram. 11/28: Patient was scheduled today with interventional radiology for percutaneous transhepatic cholangiogram but INR is unable to do this procedure due to equipment and recommended transfer to [facility]. Patient is denying any abdominal pain. Repeat lab work reveals total bilirubin of 14.6, AST 197, ALT 212, alkaline phosphatase 1400. Sodium 133. BUN 6 and creatinine 0.6. Otherwise electrolytes are normal. WBC 6.3 and hemoglobin 12.7, platelet count 260. GI is also recommended transfer to [facility]. sales development manager is working on transfer, patient will be transferred once arrangements are completed. 11/29: Patient has been accepted at [facility] but is waiting for a bed. He has been afebrile, heart rate 63, blood pressure 90/65, pulse ox 97% on room air. He continues to deny abdominal pain. He denies new complaints. He is on regular diet. Continue to monitor patient until transfer to [facility] is completed REVIEW OF SYSTEMS Constitutional: No fever, no chills, no night sweats. No weight change. No weakness, fatigue or lethargy. No daytime sleepiness. EENT: No headache. No loss of vision. No nasal drainage or congestion. No epistaxis. No sore throat. Lungs: No shortness of breath, cough, no sputum production. No wheezing. Cardiovascular: No chest pain, no lower extremity edema. No palpitations. No paroxysmal nocturnal dyspnea. No orthopnea. No lightheadedness or dizziness. No syncopal episodes. Abdominal: Denies abdominal pain. No nausea, vomiting. No diarrhea. No constipation. No bloody or tarry stools.. No loss of appetite. Genitourinary: No dysuria, increased frequency, urgency. No urinary retention. Change in urine color. Musculoskeletal: No myalgias. No muscle weakness, no gait dysfunction, no frequent falls. No back pain. No neck pain. Integumentary: No wounds, no lesions. No rash or pruritus. No unusual bruising. No change in hair or nails. Neurologic: No aphasia. No facial droop. No change in mentation. No head injury. No headache. No paralysis. No paresthesia. Psychiatric: No depression. No anxiety. No mood swings. Endocrine: No abnormal blood sugars. PHYSICAL EXAMINATION Gen: This is a 60-year-old male. He is resting in bed and appears to be comfortable. HEENT: Head is atraumatic, normocephalic. Pupils equal, round. Sclerae is icteric. NECK: Supple. No JVD. No lymphadenopathy. No thyromegaly. LUNGS: Clear to auscultation. No wheezes or rhonchi. No intercostal retractions. HEART: Regular rate and rhythm. No murmur. ABDOMEN: Soft. Bowel sounds are present. No masses. No abdominal tenderness. EXTREMITIES: No pedal edema. No calf tenderness. NEUROLOGICAL: Patient is awake, alert and oriented x3. Cranial nerves 2 through 12 are grossly intact. ASSESSMENT AND PLAN 1. Hyperbilirubinemia with jaundice. Consult with GI appreciated, consult with oncology appreciated, patient advanced to a regular diet. Patient requires percutaneous transhepatic cholangiogram at [facility]. Patient will be transferred once arrangements are completed 2. Metastatic colon cancer with metastases to the liver and lungs. Consult with oncology appreciated. 3. Tobacco use and dependence. Nicotine patch. 4. Alcohol abuse, monitor for DTs. 5. GI prophylaxis. Protonix. 6. DVT prophylaxis. SCDs and BJORN hose right leg. 7. History of amputation of left foot from farm accident. DISCHARGE PLAN Transfer to [facility]. Impression and plan of care have been directed as dictated by the signing physician. Melia Perez nurse practitioner acting as scribe for signing physician. Objective - Vital Signs Vital signs: Vital Signs Temp 98.5 F 11/29/20 04:14 Pulse 63 11/29/20 04:14 Resp 18 11/29/20 04:14 BP 98/65 11/29/20 04:14 Pulse Ox 97 11/29/20 04:14 Intake & Output 11/28/20 11/29/20 11/29/20 18:59 06:59 18:59 Other: # Voids 2 1 - Labs CBC & Chem 7: 11/28/20 05:33 11/29/20 08:43 Labs: Abnormal Lab Results - Last 24 Hours (Table) 11/28/20 Range/Units 05:33 Sodium 133 L (135-145) mmol/L BUN 6.0 L (9.0-27.0) mg/dL BUN/Creatinine Ratio 10.00 L (12.00-20.00) Ratio Calcium 8.4 L (8.7-10.3) mg/dL Total Bilirubin 14.6 H (0.3-1.2) mg/dL AST 197 H (14-35) U/L ALT 212 H (10-49) U/L Alkaline Phosphatase 1400 H (41-126) U/L Total Protein 5.9 L (6.2-8.2) g/dL Albumin 3.20 L (3.80-4.90) g/dL Albumin/Globulin Ratio 1.19 L (1.60-3.17) g/dL
--- NOTE | 2020-11-29 11:58 | P.PN ---
Subjective Progress Note Date: 11/29/20 Principal diagnosis: Hyperbilirubinemia This 60-year-old male who presented to the emergency department for abnormal labs. The patient has a past medical history of colon cancer with metastasis to liver and lungs diagnosed in October 2018. At that time he had a bowel resection due to obstruction, and status post chemo and radiation and was scheduled yesterday with Dr. Amaya to begin his second round of chemo however, noticed on his appointment that he was jaundiced, he had outpatient labs that showed an elevated bilirubin. The patient states he did not notice that he was yellow, states he did notice about a week and half ago his urine started turning dark and he wasn't feeling well overall. He may have had a urinary tract infection although not having any urinary symptoms. Admitting labs WBC 7.3 hemoglobin 14 hematocrit 42 platelet count 283,009 or 1.0 sodium 135 potassium 4.3 BUN or creatinine 0.54 total bilirubin 10.4 conjugated bilirubin 6.1 unconjugated ricardo irubin 1.5 AST 227 AST 232 alkaline phosphatase 1506 ammonia 15 amylase 44 lipase 120. Acute hepatitis panel nonreactive. Gallbladder ultrasound shows masslike area iso-echoic to slightly hypoechoic within the left lobe liver. Large slightly hyperechoic masses within the mid liver. Consider additional workup with contrast CT. Biliary dilation in the liver. CT of the abdomen and pelvis showed worsening central hepatic metastatic lesion causing moderate left- sided extra padding biliary dilation. Worsening pulmonary metastatic disease. Suspect new retroperitoneal adenopathy. Cannot exclude osseous sclerotic metastatic disease. Findings could be confirmed with repeat PET CT if desired. She does have a history of heavy alcohol abuse in the past and currently still drinking, but not as heavy. 11/28/2020 patient was seen and examined at the bedside. He denies any abdominal pain, nausea, or vomiting. Interventional radiology was consulted for percutaneous transhepatic cholangiogram. However nursing and denies that the interventional radiologist states that they do not have a proper drainage tube and recommend transfer to tertiary center. Today's total bilirubin 14.6 AST 197 AST 212 alkaline phosphatase 1400. Agree with transfer to tertiary center for further evaluation and management with possible ERCP/EUS with stenting or percutaneous transhepatic cholangiogram. 11/29/2020: Patient seen and examined lying in bed. He is without any acute changes through the night. Denies any abdominal pain, nausea, or vomiting. He is tolerating a regular diet. He is awaiting transfer to [facility] when bed available. Total bilirubin continues to increase today is 16.2, AST 193 ALT 213 alkaline phosphatase 1430. He's been afebrile. Objective - Vital Signs Vital signs: Vital Signs Temp 98.5 F 11/29/20 04:14 Pulse 63 11/29/20 04:14 Resp 18 11/29/20 04:14 BP 98/65 11/29/20 04:14 Pulse Ox 97 11/29/20 04:14 Intake & Output 11/28/20 11/29/20 11/29/20 18:59 06:59 18:59 Other: # Voids 2 1 - Exam General appearance: The patient is alert, oriented, appears in no acute distress. HET: Head is normocephalic and atraumatic. Conjunctiva pink. Sclera deeply icteric. Neck: Supple without lymphadenopathy. Abdomen: Soft, nontender, nondistended with bowel sounds. No guarding or rigidity. Extremities: Normal skin color and turgor. No pedal edema Skin: No rashes, jaundice. Neurological: No focal deficits. Alert and oriented 3. - Labs CBC & Chem 7: 11/28/20 05:33 11/29/20 08:43 Labs: Abnormal Lab Results - Last 24 Hours (Table) 11/28/20 Range/Units 05:33 Sodium 133 L (135-145) mmol/L BUN 6.0 L (9.0-27.0) mg/dL BUN/Creatinine Ratio 10.00 L (12.00-20.00) Ratio Calcium 8.4 L (8.7-10.3) mg/dL Total Bilirubin 14.6 H (0.3-1.2) mg/dL AST 197 H (14-35) U/L ALT 212 H (10-49) U/L Alkaline Phosphatase 1400 H (41-126) U/L Total Protein 5.9 L (6.2-8.2) g/dL Albumin 3.20 L (3.80-4.90) g/dL Albumin/Globulin Ratio 1.19 L (1.60-3.17) g/dL Assessment and Plan (1) Hyperbilirubinemia Narrative/Plan: 60-year-old male with a history of metastatic colon cancer with metastasis to the liver and lungs diagnosed in 2019 presented to the emergency department for further evaluation of jaundice. The patient was scheduled yesterday with Dr. Amaya to begin chemotherapy, when he got to the office they noticed that he was jaundiced and had outpatient labs and sent to the emergency department for further evaluation. Patient states he did not notice that he had yellowing of the skin but did notice that he had dark urine started about 1-2 weeks ago. On admission he was noted to have a total bilirubin of 10.4 AST 227 heel T2 32 alkaline phosphatase 1506. He had an ultrasound of the abdomen and CT of the a bdomen showing worsening of hepatic metastatic lesion is a moderate left-sided extrahepatic biliary dilation. Worsening pulmonary metastatic disease. Suspect new retroperitoneal adenopathy. Cannot exclude osseous sclerotic metastatic disease. Case discussed with oncology Dr. Loredo and Dr. Amaya, for treatment options including tranferring patient to tertiary center for ERCP with stenting versus PTC. Will proceed with consulting interventional radiology for percutaneous transhepatic cholangiogram. Current Visit: Yes Status: Acute Priority: High Code(s): E80.6 - OTHER DISORDERS OF BILIRUBIN METABOLISM SNOMED Code(s): 90110970 (2) Colon cancer Current Visit: Yes Status: Acute Priority: High Code(s): C18.9 - MALIGNANT NEOPLASM OF COLON, UNSPECIFIED SNOMED Code(s): 411084372 (3) Metastases to the liver Current Visit: Yes Status: Chronic Priority: High Code(s): C78.7 - SECONDARY MALIG NEOPLASM OF LIVER AND INTRAHEPATIC BILE DUCT SNOMED Code(s): 18714957 Plan: 1. Continue symptomatic and supportive care 2. Repeat CMP daily 3. Appreciate recommendations from oncology 4. Interventional radiology consulted for percutaneous transhepatic cholangiogram, , however they do not have appropriate sized drainage tube and recommend transfer to tertiary center for further evaluation and treatment 5. Avoid hepatotoxic medications 6. Recommend transfer to tertiary center such as [facility] for evaluation for ERCP with EUS and stenting or possible percutaneous transhepatic cholangiogram. Thank you for allowing us to participate in the care of the patient, the GI service will sign off, gastroenterology will not be available at the hospital this weekend and through next week. If further evaluation by gastroenterology is required the patient will need transfer as per the primary team's discretion. Dr. Brit Mccormick I agree with the dictator's note, documented as a scribe by Stephanie English.
--- NOTE | 2020-11-29 15:27 | P.PN ---
Subjective Progress Note Date: 11/29/20 Principal diagnosis: Obstructive Jaundice Plan for probable transfer to [facility] for evaluation for ERCP with EUS and stenting or possible percutaneous transhepatic cholangiogram. Objective - Vital Signs Vital signs: Vital Signs Temp 98.1 F 11/29/20 11:17 Pulse 59 L 11/29/20 11:17 Resp 18 11/29/20 11:17 BP 114/67 11/29/20 11:17 Pulse Ox 96 11/29/20 11:17 Intake & Output 11/28/20 11/29/20 11/29/20 18:59 06:59 18:59 Weight 93.44 kg Other: Voiding Method Toilet # Voids 2 1 - Exam - Constitutional General appearance: Present: average body habitus, cooperative, no acute dist ress - EENT Eyes: Present: EOMI, scleral icterus ENT: Present: hearing grossly normal - Respiratory Details: Respirations are even and unlabored - Gastrointestinal General gastrointestinal: Present: normal bowel sounds, soft - Integumentary Integumentary: Present: jaundiced - Neurologic Neurologic: Present: CNII-XII intact - Musculoskeletal Musculoskeletal: Present: strength equal bilaterally - Psychiatric Psychiatric: Present: A&O x's 3 - Labs CBC & Chem 7: 11/28/20 05:33 11/29/20 08:43 Labs: Abnormal Lab Results - Last 24 Hours (Table) 11/29/20 Range/Units 08:43 Sodium 133 L (137-145) mmol/L Carbon Dioxide 20 L (22-30) mmol/L BUN 6 L (9-20) mg/dL Creatinine 0.60 L (0.66-1.25) mg/dL Glucose 137 H (74-99) mg/dL Total Bilirubin 16.2 H* (0.2-1.3) mg/dL AST 193 H (17-59) U/L ALT 213 H (4-49) U/L Alkaline Phosphatase 1430 H (38-126) U/L Albumin 3.2 L (3.5-5.0) g/dL Assessment and Plan Plan: Assessment and Plan Colon cancer Narrative/Plan: Recent disease progression in liver and lungs after about a year of stable disease. Due to start FOLFOX avastin. Once current acute condition is managed he will go on to treatment. Current Visit: Yes Status: Acute Priority: High Code(s): C18.9 - MALIGNANT NEOPLASM OF COLON, UNSPECIFIED SNOMED Code(s): 262085531 Hyperbilirubinemia Obstructive Jaundice Narrative/Plan: Current Visit: Yes Status: Acute Priority: High Code(s): E80.6 - OTHER DISORDERS OF BILIRUBIN METABOLISM SNOMED Code(s): 49127377 (3) Metastases to the liver Current Visit: Yes Status: Chronic Priority: High Code(s): C78.7 - SECONDARY MALIG NEOPLASM OF LIVER AND INTRAHEPATIC BILE DUCT SNOMED Code(s): 75021776 Plan: - Interventional radiology unable to perform percutaneous transhepatic cholangiogram, therefore transfer to tertiary center, likely [facility] for evaluation for ERCP with EUS and stenting or possible percutaneous transhepatic cholangiogram. - Patient may follow-up after returns as outpatient with Dr. Loredo to continue plan for Recent disease progression in liver and lungs after about a year of stable disease. Due to start FOLFOX avastin. Once current acute condition is managed he will go on to treatment. - Case management has contacted [facility] and we are awaiting bed and planning transfer by end of today Doctor attests: I performed a history and physical examination of this patient, developed impression and plan of care, discussed with dictator. I agree with dictators note, documented as a scribe.
[2020-11-30 06:38] LABS: Basophils % (A) 1 %; Eosinophils # (A) 0.3 k/uL (0-0.7); Eosinophils % (A) 5 %; HCT 40.5 % (39.0-53.0); HGB 13.2 gm/dL (13.0-17.5); Lymphocytes # (A) 1.4 k/uL (1.0-4.8); Lymphocytes % (A) 21 %; MCH 32.6 pg (25.0-35.0); MCHC 32.6 g/dL (31.0-37.0); MCV 100.2 fL (80.0-100.0); Monocytes # (A) 0.4 k/uL (0-1.0); Monocytes % (A) 5 %; Neutrophils # (A) 4.6 k/uL (1.3-7.7); Neutrophils % (A) 67 %; Platelet Count 312 k/uL (150-450); RBC 4.04 m/uL (4.30-5.90); RDW 13.5 % (11.5-15.5); WBC 6.9 k/uL (3.8-10.6)
[2020-11-30] MEDS: NICOTINE 21MG/24HR PATCH TRANSDERM SCH (08:46)
[2020-11-30] MEDS: PANTOPRAZOLE 40 MG TABLET PO SCH (08:48)
--- NOTE | 2020-11-30 11:01 | P.PN ---
Subjective Progress Note Date: 11/30/20 This is a 60-year-old male patient of Dr. Alcantara with long history of colon cancer status post segmental resection of sigmoid colon creation of temporary colostomy October [address] Angel with subsequent reversal done at [facility] with subsequent chemotherapy. 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 Patient is a poor historian. Patient states that he was to start chemotherapy for stage IV colon cancer and was at Dr. Amaya's office and was found to be jaundiced and was sent in the hospital for further evaluation. WBC 7.3 hemoglobin 14 hematocrit 42 platelet count 283, sodium 135, potassium 4.3 BUN 4, creatinine 0.54, total bilirubin 10.4, conjugated bilirubin 6.1, unconjugated bilirubin 1.5. AST 227, AST 232, alkaline phosphatase 1506, ammonia 15, amylase 44, lipase 120. Acute hepatitis panel nonreactive. Gallbladder ultrasound shows masslike area iso-echoic to slightly hypoechoic within the left lobe liver. Large slightly hyperechoic masses within the mid liver. Consider additional workup with contrast CT. Biliary dilation in the liver. CT of the abdomen and pelvis showed worsening central hepatic metastatic lesion causing moderate left-sided extra padding biliary dilation. Worsening pulmonary metastatic disease. Suspect new retroperitoneal adenopathy. Cannot exclude osseous sclerotic metastatic disease. Findings could be confirmed with repeat PET CT if desired. The patient is denying any abdominal pain, nausea, or vomiting. States bowel movements have been normal last one yesterday. He does have a past history of heavy alcohol abuse and is still currently drinking but not as heavy. Patient states he has not had a repeat colonoscopy since his diagnosis of cancer. Patient admitted to the oncology unit and consults are in place for GI, oncology, interventional radiology for percutaneous transhepatic cholangiogram. 11/28: Patient was scheduled today with interventional radiology for percutaneous transhepatic cholangiogram but INR is unable to do this procedure due to equipment and recommended transfer to [facility]. Patient is denying any abdominal pain. Repeat lab work reveals total bilirubin of 14.6, AST 197, ALT 212, alkaline phosphatase 1400. Sodium 133. BUN 6 and creatinine 0.6. Otherwise electrolytes are normal. WBC 6.3 and hemoglobin 12.7, platelet count 260. GI is also recommended transfer to [facility]. center manager is working on transfer, patient will be transferred once arrangements are completed. 11/29: Patient has been accepted at [facility] but is waiting for a bed. He has been afebrile, heart rate 63, blood pressure 90/65, pulse ox 97% on room air. He continues to deny abdominal pain. He denies new complaints. He is on regular diet. Continue to monitor patient until transfer to [facility] is completed 11/30: She was found resting in bed in no acute distress with no complaints. He is awaiting a bed at [facility]. He has been afebrile, heart rate 56, respirations 16, blood pressure 108/67, pulse ox 94% on room air. He continues to deny any abdominal pain. He is on a regular diet. WBC 6.9, hemoglobin 13.0 REVIEW OF SYSTEMS Constitutional: No fever, no chills, no night sweats. No weight change. No weakness, fatigue or lethargy. No daytime sleepiness. EENT: No headache. No loss of vision. No nasal drainage or congestion. No epistaxis. No sore throat. Lungs: No shortness of breath, cough, no sputum production. No wheezing. Cardiovascular: No chest pain, no lower extremity edema. No palpitations. No paroxysmal nocturnal dyspnea. No orthopnea. No lightheadedness or dizziness. No syncopal episodes. Abdominal: Denies abdominal pain. No nausea, vomiting. No diarrhea. No constipation. No bloody or tarry stools.. No loss of appetite. Genitourinary: No dysuria, increased frequency, urgency. No urinary retention. Change in urine color. Musculoskeletal: No myalgias. No muscle weakness, no gait dysfunction, no frequent falls. No back pain. No neck pain. Integumentary: No wounds, no lesions. No rash or pruritus. No unusual bruising. No change in hair or nails. Neurologic: No aphasia. No facial droop. No change in mentation. No head injury. No headache. No paralysis. No paresthesia. Psychiatric: No depression. No anxiety. No mood swings. Endocrine: No abnormal blood sugars. PHYSICAL EXAMINATION Gen: This is a 60-year-old male. He is resting in bed and appears to be comfortable. HEENT: Head is atraumatic, normocephalic. Pupils equal, round. Sclerae is icteric. NECK: Supple. No JVD. No lymphadenopathy. No thyromegaly. LUNGS: Clear to auscultation. No wheezes or rhonchi. No intercostal retractions. HEART: Regular rate and rhythm. No murmur. ABDOMEN: Soft. Bowel sounds are present. No masses. No abdominal tenderness. EXTREMITIES: No pedal edema. No calf tenderness. NEUROLOGICAL: Patient is awake, alert and oriented x3. Cranial nerves 2 through 12 are grossly intact. ASSESSMENT AND PLAN 1. Hyperbilirubinemia with jaundice. Consult with GI appreciated, consult with oncology appreciated, patient advanced to a regular diet. Patient requires percutaneous transhepatic cholangiogram at [facility]. Patient will be transferred once arrangements are completed 2. Metastatic colon cancer with metastases to the liver and lungs. Consult with oncology appreciated. 3. Tobacco use and dependence. Nicotine patch. 4. Alcohol abuse, monitor for DTs. 5. GI prophylaxis. Protonix. 6. DVT prophylaxis. SCDs and BJORN hose right leg. 7. History of amputation of left foot from farm accident. DISCHARGE PLAN Transfer to [facility]. Impression and plan of care have been directed as dictated by the signing physician. Chetna Chauhan nurse practitioner acting as scribe for signing physician. Objective - Vital Signs Vital signs: Vital Signs Temp 98.2 F 11/30/20 04:17 Pulse 67 11/30/20 08:00 Resp 16 11/30/20 08:00 BP 108/67 11/30/20 04:17 Pulse Ox 94 L 11/30/20 04:17 Intake & Output 11/29/20 11/30/20 11/30/20 18:59 06:59 18:59 Intake Total 800 590 Balance 800 590 Weight 93.44 kg Intake: Oral 800 590 Other: Voiding Method Toilet Toilet Toilet - Labs CBC & Chem 7: 11/30/20 05:52 11/29/20 08:43 Labs: Abnormal Lab Results - Last 24 Hours (Table) 11/30/20 Range/Units 05:52 RBC 4.04 L (4.30-5.90) m/uL MCV 100.2 H (80.0-100.0) fL
[2020-11-30 15:57] LABS: African American GFR (CKD) 120.6 (60.0-200.0); Albumin 3.7 g/dL (3.80-4.90); Albumin/Globulin Ratio 1.19 (1.60-3.17); BUN/Creat Ratio 11.43 Ratio (12.00-20.00); Calcium 9.1 mg/dL (8.7-10.3); Globulin 3.1 g/dL (1.6-3.3); Potassium 4.3 mmol/L (3.5-5.5); Total Protein 6.8 g/dL (6.2-8.2)
[2020-11-30 20:55] VITALS: BP 126/80; PULSE 60; RESP 16; TEMP 98.5
== END 2020-11-30 21:55 | disposition short-term general hospital (02) | DRG 435 ==
LOC: EC 12:08 → 5NMEDONC 15:48
PROVIDERS: ADMIT Internal Medicine Geriatric Medicine; ATTEND Internal Medicine Geriatric Medicine
DX: C78.7 Secondary malignant neoplasm of liver and intrahepatic bile duct (principal); K83.1 Obstruction of bile duct; C78.00 Secondary malignant neoplasm of unspecified lung; C78.6 Secondary malignant neoplasm of retroperitoneum and peritoneum; C18.9 Malignant neoplasm of colon, unspecified; D50.9 Iron deficiency anemia, unspecified; D63.0 Anemia in neoplastic disease; Z89.432 Acquired absence of left foot; Z20.822 Contact with and (suspected) exposure to COVID-19; Z53.8 Procedure and treatment not carried out for other reasons; K21.9 Gastro-esophageal reflux disease without esophagitis; F10.10 Alcohol abuse, uncomplicated; K59.00 Constipation, unspecified; F17.210 Nicotine dependence, cigarettes, uncomplicated; Z60.2 Problems related to living alone; Z90.49 Acquired absence of other specified parts of digestive tract; Z87.19 Personal history of other diseases of the digestive system; Z92.3 Personal history of irradiation; Z98.890 Other specified postprocedural states; Z82.49 Family history of ischemic heart disease and other diseases of the circulatory system; Z83.3 Family history of diabetes mellitus; Z80.8 Family history of malignant neoplasm of other organs or systems
CPT/HCPCS: 36415; 74177; 76705; 80053; 80074; 81003; 82140; 82150; 82248; 83605; 83690; 85025; 85027; 85610; 85730; 87635; 93005

== ENCOUNTER 2020-12-19 18:53 | Inpatient (IN) | payer OTHER ==
--- NOTE | 2020-12-19 21:35 | ED ---
General Adult HPI - General Chief complaint: Shortness of Breath Stated complaint: SOB, weakness Time Seen by Provider: 12/19/20 21:18 Source: patient Mode of arrival: ambulatory - History of Present Illness Initial comments: This patient is a 60-year-old man who presents to be evaluated for generalized weakness and fatigue as well as exertional dyspnea. The patient states that his symptoms have been coming on and getting progressively worse since she was diagnosed with COVID-19 infection. Patient states that this has been going on since approximately one week ago and he was diagnosed earlier this week. She also has history of stage IV colon cancer and states that he has jaundice related to that. He was receiving chemotherapy a year ago, and reportedly had recent recurrence and was going to start chemotherapy again then was found to have developed jaundice -: days(s) Severity scale (1-10): 0 Improves with: none Worsens with: none Associated Symptoms: loss of appetite, malaise, shortness of breath, weakness Treatments Prior to Arrival: none - Related Data Home Medications Medication Instructions Recorded Confirmed No Known Home Medications 11/26/20 12/19/20 Allergies Allergy/AdvReac Type Severity Reaction Status Date / Time No Known Allergies Allergy Verified 12/19/20 22:29 Review of Systems ROS Statement: Those systems with pertinent positive or pertinent negative responses have been documented in the HPI. ROS Other: All systems not noted in ROS Statement are negative. Constitutional: Reports: fever, chills, weakness Respiratory: Reports: dyspnea. Denies: cough Cardiovascular: Reports: dyspnea on exertion. Denies: chest pain, palpitations, edema, syncope Gastrointestinal: Denies: abdominal pain, vomiting, diarrhea Genitourinary: Denies: dysuria, hematuria Skin: Denies: rash Neurological: Denies: headache, weakness, numbness Past Medical History Past Medical History: Cancer, GERD/Reflux Additional Past Medical History / Comment(s): Constipation since Jul, 2018. Colon Cancer. covid 12/26 History of Any Multi-Drug Resistant Organisms: None Reported Past Surgical History: Orthopedic Surgery Additional Past Surgical History / Comment(s): lt foot amputation due to farm accident. Bowel resection with colostomy - October 2018. reversal Nov 2019 Past Anesthesia/Blood Transfusion Reactions: No Reported Reaction Past Psychological History: No Psychological Hx Reported Smoking Status: Current every day smoker Past Alcohol Use History: None Reported Past Drug Use History: None Reported - Past Family History Father Additional Family Medical History / Comment(s): Father had an arterial injury and of this. Mother Family Medical History: Diabetes Mellitus Sister(s) Family Medical History: Cancer Additional Family Medical History / Comment(s): Brain tumor - . General Exam General appearance: alert, in no apparent distress Head exam: Present: atraumatic, normocephalic, normal inspection Eye exam: Present: normal appearance, PERRL, EOMI, scleral icterus. Absent: conjunctival injection Neck exam: Present: normal inspection, full ROM Respiratory exam: Present: rales, other (Port in the upper right chest wall.). Absent: respiratory distress, wheezes, rhonchi, stridor, accessory muscle use, decreased breath sounds, prolonged expiratory Cardiovascular Exam: Present: regular rate, normal rhythm, normal heart sounds. Absent: systolic murmur, diastolic murmur, rubs, gallop GI/Abdominal exam: Present: soft. Absent: distended, tenderness, guarding, rebo und, rigid, mass Extremities exam: Present: other (Left below-knee amputation) Back exam: Present: normal inspection. Absent: CVA tenderness (R), CVA tenderness (L) Neurological exam: Present: alert, oriented X3. Absent: motor sensory deficit Skin exam: Present: warm, dry, intact, other (Icteric). Absent: rash Course Vital Signs 12/19/20 12/19/20 20:40 23:27 Temperature 97.5 F L 97.6 F Pulse Rate 73 71 Respiratory 20 18 Rate Blood Pressure 92/63 93/61 O2 Sat by Pulse 99 98 Oximetry EKG Findings - EKG Results: EKG: interpreted by ERMD, sinus rhythm (Rate 72 bpm), normal axis, normal QRS, normal ST/T, no acute changes Medical Decision Making - Lab Data Result diagrams: 12/19/20 22:08 12/19/20 22:08 Lab Results 12/19/20 12/19/20 12/19/20 Range/Units 22:08 22:08 22:08 WBC 10.5 (3.8-10.6) k/uL RBC 2.78 L (4.30-5.90) m/uL Hgb 9.2 L D (13.0-17.5) gm/dL Hct 26.3 L (39.0-53.0) % MCV 94.4 D (80.0-100.0) fL MCH 32.9 (25.0-35.0) pg MCHC 34.9 (31.0-37.0) g/dL RDW 14.2 (11.5-15.5) % Plt Count 174 (150-450) k/uL MPV 10.1 Neutrophils % 88 % Lymphocytes % 7 % Monocytes % 2 % Eosinophils % 0 % Basophils % 0 % Neutrophils # 9.3 H (1.3-7.7) k/uL Lymphocytes # 0.8 L (1.0-4.8) k/uL Monocytes # 0.2 (0-1.0) k/uL Eosinophils # 0.0 (0-0.7) k/uL Basophils # 0.0 (0-0.2) k/uL PT 21.9 H (9.0-12.0) sec INR 2.2 H (<1.2) APTT 34.5 H (22.0-30.0) sec Sodium 129 L (137-145) mmol/L Potassium 3.9 (3.5-5.1) mmol/L Chloride 97 L (98-107) mmol/L Carbon Dioxide 19 L (22-30) mmol/L Anion Gap 13 mmol/L BUN 25 H (9-20) mg/dL Creatinine 0.68 (0.66-1.25) mg/dL Est GFR (CKD-EPI)AfAm >90 (>60 ml/min/1.73 sqM) Est GFR (CKD-EPI)NonAf >90 (>60 ml/min/1.73 sqM) Glucose 124 H (74-99) mg/dL Plasma Lactic Acid Erasmo (0.7-2.0) mmol/L Calcium 8.3 L (8.4-10.2) mg/dL Magnesium 2.6 H (1.6-2.3) mg/dL Total Bilirubin 14.0 H (0.2-1.3) mg/dL AST 102 H (17-59) U/L ALT 60 H (4-49) U/L Alkaline Phosphatase 808 H (38-126) U/L Lactate Dehydrogenase 540 (313-618) U/L Troponin I (0.000-0.034) ng/mL C-Reactive Protein 19.8 H (<1.0) mg/dL NT-Pro-B Natriuret Pep pg/mL Total Protein 6.7 (6.3-8.2) g/dL Albumin 2.8 L (3.5-5.0) g/dL Coronavirus (PCR) (Not Detectd) 12/19/20 12/19/20 12/19/20 Range/Units 22:08 22:08 22:08 WBC (3.8-10.6) k/uL RBC (4.30-5.90) m/uL Hgb (13.0-17.5) gm/dL Hct (39.0-53.0) % MCV (80.0-100.0) fL MCH (25.0-35.0) pg MCHC (31.0-37.0) g/dL RDW (11.5-15.5) % Plt Count (150-450) k/uL MPV Neutrophils % % Lymphocytes % % Monocytes % % Eosinophils % % Basophils % % Neutrophils # (1.3-7.7) k/uL Lymphocytes # (1.0-4.8) k/uL Monocytes # (0-1.0) k/uL Eosinophils # (0-0.7) k/uL Basophils # (0-0.2) k/uL PT (9.0-12.0) sec INR (<1.2) APTT (22.0-30.0) sec Sodium (137-145) mmol/L Potassium (3.5-5.1) mmol/L Chloride (98-107) mmol/L Carbon Dioxide (22-30) mmol/L Anion Gap mmol/L BUN (9-20) mg/dL Creatinine (0.66-1.25) mg/dL Est GFR (CKD-EPI)AfAm (>60 ml/min/1.73 sqM) Est GFR (CKD-EPI)NonAf (>60 ml/min/1.73 sqM) Glucose (74-99) mg/dL Plasma Lactic Acid Erasmo 1.2 (0.7-2.0) mmol/L Calcium (8.4-10.2) mg/dL Magnesium (1.6-2.3) mg/dL Total Bilirubin (0.2-1.3) mg/dL AST (17-59) U/L ALT (4-49) U/L Alkaline Phosphatase (38-126) U/L Lactate Dehydrogenase (313-618) U/L Troponin I <0.012 (0.000-0.034) ng/mL C-Reactive Protein (<1.0) mg/dL NT-Pro-B Natriuret Pep 1620 pg/mL Total Protein (6.3-8.2) g/dL Albumin (3.5-5.0) g/dL Coronavirus (PCR) (Not Detectd) 12/19/20 Range/Units 23:34 WBC (3.8-10.6) k/uL RBC (4.30-5.90) m/uL Hgb (13.0-17.5) gm/dL Hct (39.0-53.0) % MCV (80.0-100.0) fL MCH (25.0-35.0) pg MCHC (31.0-37.0) g/dL RDW (11.5-15.5) % Plt Count (150-450) k/uL MPV Neutrophils % % Lymphocytes % % Monocytes % % Eosinophils % % Basophils % % Neutrophils # (1.3-7.7) k/uL Lymphocytes # (1.0-4.8) k/uL Monocytes # (0-1.0) k/uL Eosinophils # (0-0.7) k/uL Basophils # (0-0.2) k/uL PT (9.0-12.0) sec INR (<1.2) APTT (22.0-30.0) sec Sodium (137-145) mmol/L Potassium (3.5-5.1) mmol/L Chloride (98-107) mmol/L Carbon Dioxide (22-30) mmol/L Anion Gap mmol/L BUN (9-20) mg/dL Creatinine (0.66-1.25) mg/dL Est GFR (CKD-EPI)AfAm (>60 ml/min/1.73 sqM) Est GFR (CKD-EPI)NonAf (>60 ml/min/1.73 sqM) Glucose (74-99) mg/dL Plasma Lactic Acid Erasmo (0.7-2.0) mmol/L Calcium (8.4-10.2) mg/dL Magnesium (1.6-2.3) mg/dL Total Bilirubin (0.2-1.3) mg/dL AST (17-59) U/L ALT (4-49) U/L Alkaline Phosphatase (38-126) U/L Lactate Dehydrogenase (313-618) U/L Troponin I (0.000-0.034) ng/mL C-Reactive Protein (<1.0) mg/dL NT-Pro-B Natriuret Pep pg/mL Total Protein (6.3-8.2) g/dL Albumin (3.5-5.0) g/dL Coronavirus (PCR) Detected A (Not Detectd) Disposition Referrals: David Alcantara DO [Primary Care Provider] - 1-2 days
[2020-12-19 22:26] LABS: Basophils % (A) 0 %; Eosinophils % (A) 0 %; HCT 26.3 % (39.0-53.0); Lymphocytes # (A) 0.8 k/uL (1.0-4.8); Lymphocytes % (A) 7 %; MCH 32.9 pg (25.0-35.0); MCHC 34.9 g/dL (31.0-37.0); Mean Platelet Volume 10.1; Monocytes # (A) 0.2 k/uL (0-1.0); Monocytes % (A) 2 %; Neutrophils # (A) 9.3 k/uL (1.3-7.7); Neutrophils % (A) 88 %; Platelet Count 174 k/uL (150-450); RBC 2.78 m/uL (4.30-5.90); RDW 14.2 % (11.5-15.5); WBC 10.5 k/uL (3.8-10.6)
[2020-12-19 22:37] LABS: Chloride 97 mmol/L (98-107)
[2020-12-19 22:41] LABS: HGB 9.2 gm/dL (13.0-17.5)
[2020-12-19 22:42] LABS: MCV 94.4 fL (80.0-100.0)
[2020-12-19 22:46] LABS: ALT 60 U/L (4-49); AST 102 U/L (17-59); African American GFR (CKD) >90 (>60 ml/min/1.73 sqM); Albumin 2.8 g/dL (3.5-5.0); Alkaline Phosphatase 808 U/L (38-126); Anion Gap 13 mmol/L; Blood Urea Nitrogen 25 mg/dL (9-20); Calcium 8.3 mg/dL (8.4-10.2); Carbon Dioxide 19 mmol/L (22-30); Glucose 124 mg/dL (74-99); LDH 540 U/L (313-618); Magnesium 2.6 mg/dL (1.6-2.3); Non-African American GFR(CKD) >90 (>60 ml/min/1.73 sqM); Potassium 3.9 mmol/L (3.5-5.1); Sodium 129 mmol/L (137-145); Total Protein 6.7 g/dL (6.3-8.2)
[2020-12-19 22:54] LABS: INR 2.2 (<1.2); Partial Thromboplastin Time 34.5 sec (22.0-30.0); Prothrombin Time 21.9 sec (9.0-12.0)
--- NOTE | 2020-12-19 22:59 | XR ---
EXAMINATION TYPE: XR chest 1V portable DATE OF EXAM: 12/19/2020 COMPARISON: 12/15/2018 INDICATION: Covid19 pneumonia TECHNIQUE: Single frontal view of the chest is obtained. FINDINGS: The heart size is normal. The pulmonary vasculature is normal. Minimal peripheral infiltrate is present which can be compatible with atypical pneumonia. Port is present on the right with the tip in the superior vena cava region. IMPRESSION: 1. Very mild peripheral infiltrates which are nonspecific but can be compatible with atypical pneumon ia.
[2020-12-19 23:00] LABS: C Reactive Protein 19.8 mg/dL (<1.0)
[2020-12-19] MEDS ORDERED: SODIUM CHLORIDE 0.9% 1,000 ML IV ONE (23:15)
[2020-12-20] MEDS ORDERED: NALOXONE 0.4 MG/ML 1 ML VIAL IV PRN (03:01)
[2020-12-20] MEDS ORDERED: ONDANSETRON 4 MG/2 ML VIAL IVP PRN (03:01)
[2020-12-20] MEDS: SODIUM CHLORIDE 0.9% 1,000 ML IV SCH ×5 (03:13→21:07)
[2020-12-20] MEDS ORDERED: ACETAMINOPHEN TAB 325 MG TAB PO STA (03:35)
[2020-12-20] MEDS ORDERED: SODIUM CHLORIDE 0.9% 1,000 ML IV ONE ×2 (03:35→06:21)
[2020-12-20] MEDS: FAMOTIDINE 20 MG TAB PO SCH ×2 (08:26→19:44)
[2020-12-20] MEDS: DEXAMETHASONE SOD PHOSPHATE 10 MG/ML 1 ML VIAL IV SCH (08:26)
--- NOTE | 2020-12-20 12:26 | P.CNPUL ---
History of Present Illness Consult date: 12/20/20 Requesting physician: Yessy Escobar Reason for consult: dyspnea, cough, hypoxemia, pneumonia, abnormal CXR/CT Chief complaint: Coronavirus associated pneumonia. History of present illness: Pulmonary/critical care consult dated 12/20/2020. 60-year-old male who presents to the emergency department on December 19, complaining of shortness of breath and weakness. He also has generalized fatigue. He apparently is been sick for about 11 or 12 days. The patient actually started getting sick I believe last Wednesday. He apparently was recently diagnosed with coronavirus infection. The patient states that since then, his symptoms have worsened. He states he is very weak and cannot walk. He states that he falls down. The patient does have a history of stage IV colon cancer, and is quite jaundiced. The patient follows up with Dr. Amaya, in medical oncology, but has not had any treatment or chemotherapy for some time. The patient also states that he recently had a procedure to [facility] on his liver. He was not able to elaborate. The patient is not a particularly good historian. He is getting 2 L by nasal cannula and saline at 100 mL an hour. The patient did get a vaccine against coronavirus in August. He states he got the Moderna vaccine. The patient is a prior smoker as well. The patient also complains of cough, and scratchy throat. His medical history is positive for gastroesophageal reflux disease, colon cancer, and constipation. 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 Family history is positive for diabetes mellitus. White count 10.5, hemoglobin 9.2, hematocrit 26.3, and platelet count 174,000. PT 21.9, INR 2.2, PTT is 34.5. Sodium 129, potassium 3.9, chloride 97, and CO2 19. Anion gap 13, BUN 25, and creatinine 0.68. Total bilirubin 14.0 AST 102 ALT 60 and alkaline phosphatase 808. C- reactive protein is 19.8. N-terminal proBNP is 1620. Coronavirus testing was positive on December 19. Chest x-ray shows some minimal peripheral infiltrates. Review of Systems REVIEW OF SYSTEMS: CONSTITUTIONAL: Weakness and fatigue. NEUROLOGIC: Unsteady gait. HEENT: Scratchy throat. CARDIAC: [Negative.] PULMONARY: Shortness of breath and cough. GI: [Negative.] : [Negative.] RHEUMATOLOGIC: [ Negative.] IMMUNOLOGIC: [ Negative.] ENDOCRINE: [Negative. ] DERMATOLOGIC: Jaundice. Past Medical History Past Medical History: Cancer, GERD/Reflux Additional Past Medical History / Comment(s): Constipation since Jul, 2018. Colon Cancer. covid 12/26 History of Any Multi-Drug Resistant Organisms: None Reported Past Surgical History: Orthopedic Surgery Additional Past Surgical History / Comment(s): lt foot amputation due to farm accident. Bowel resection with colostomy - October 2018. reversal Nov 2019 Past Anesthesia/Blood Transfusion Reactions: No Reported Reaction Past Psychological History: No Psychological Hx Reported Additional Psychological History / Comment(s): Pt resides alone. He uses crutches if he gets up in the night. He has a L lower leg prosthesis. He drives. Smoking Status: Current every day smoker Past Alcohol Use History: None Reported Additional Past Alcohol Use History / Comment(s): Pt started smoking in 1976 and smokes 1.5 ppd. He normally drinks 5-6 beers per day but has not drank anything in a few days d/t not feeling well. Past Drug Use History: None Reported - Past Family History Father Additional Family Medical History / Comment(s): Father had an arterial injury and of this. Mother Family Medical History: Diabetes Mellitus Sister(s) Family Medical History: Cancer Additional Family Medical History / Comment(s): Brain tumor - . Medications and Allergies Home Medications Medication Instructions Recorded Confirmed Type No Known Home Medications 11/26/20 12/19/20 History Allergies Allergy/AdvReac Type Severity Reaction Status Date / Time No Known Allergies Allergy Verified 12/19/20 22:29 Physical Exam Osteopathic Statement: *. No significant issues noted on an osteopathic structural exam other than those noted in the History and Physical/Consult. Vitals: Vital Signs Temp Pulse Pulse Resp BP BP Pulse Ox 12/20/20 08:08 97 12/20/20 08:00 97.8 F 84 18 83/57 99 12/20/20 06:16 99.5 F 98 18 82/50 97 12/20/20 05:37 18 12/20/20 05:06 97/53 12/20/20 04:35 100.6 F H 120 H 19 12/20/20 03:41 100.1 F H 110 H 18 80/52 98 12/20/20 03:37 102.8 F H 129 H 17 113/78 96 12/20/20 02:01 98.9 F 12/19/20 23:27 97.6 F 71 18 93/61 98 12/19/20 20:40 97.5 F L 73 20 92/63 99 Intake and Output 12/19/20 12/20/20 12/20/20 22:59 06:59 14:59 Other: # Voids 1 Weight 86.183 kg 86.183 kg No acute distress, oriented 3. Very poor historian. No significant respiratory distress, audible wheezing, use of accessory muscles or conversational dyspnea. Nasal O2 on at 2 L. HEENT examination is grossly unremarkable. Scleral icterus. Neck supple. Full range of motion. No adenopathy thyromegaly or neck vein distention. Cardiovascular examination reveals regular rhythm rate. S1-S2 normal. No S3 or S4. No discernible murmur noted. Heart rate 84 bpm. Lungs reveal mild to moderate rhonchi. No wheezes or crackles. Breath sounds equal bilaterally. Abdomen soft bowel sounds are heard. No masses or tenderness. Extremities are intact. No cyanosis clubbing or edema. Skin reveals significant jaundice. Neurologic examination is brief but nonfocal. Results - Laboratory Findings CBC and BMP: 12/19/20 22:08 12/19/20 22:08 PT/INR, D-dimer PT 21.9 sec (9.0-12.0) H 12/19/20 22:08 INR 2.2 (<1.2) H 12/19/20 22:08 Abnormal lab findings: Abnormal Labs 12/19/20 12/19/20 12/19/20 22:08 22:08 22:08 RBC 2.78 L Hgb 9.2 L D Hct 26.3 L Neutrophils # 9.3 H Lymphocytes # 0.8 L PT 21.9 H INR 2.2 H APTT 34.5 H Sodium 129 L Chloride 97 L Carbon Dioxide 19 L BUN 25 H Glucose 124 H Calcium 8.3 L Magnesium 2.6 H Total Bilirubin 14.0 H AST 102 H ALT 60 H Alkaline Phosphatase 808 H C-Reactive Protein 19.8 H Albumin 2.8 L Coronavirus (PCR) 12/19/20 23:34 RBC Hgb Hct Neutrophils # Lymphocytes # PT INR APTT Sodium Chloride Carbon Dioxide BUN Glucose Calcium Magnesium Total Bilirubin AST ALT Alkaline Phosphatase C-Reactive Protein Albumin Coronavirus (PCR) Detected A - Diagnostic Findings Chest x-ray: image reviewed Assessment and Plan Assessment: Mild to moderate hypoxemic respiratory failure secondary to coronavirus as sociated pneumonia. History of stage IV colon cancer, status post remote history of chemotherapy. Severe hyperbilirubinemia/jaundice. Prior history of tobacco use. Previous history of colon resection with colostomy, and subsequent reversal. Chronic constipation. History of gastroesophageal reflux disease. Status post left foot amputation due to farm accident. Plan: Plan dated 12/20/2020. The patient will be offered Decadron, Lovenox, and vitamins. The patient is not a candidate for REM. We will continue to follow the patient and make recommendations where appropriate. Prognosis is guarded. In my opinion, the patient is at high risk for deterioration given his chronic health status. He also mentions that he had some sort of surgical procedure recently at [facility]. The patient could not elaborate. Time with Patient: Greater than 30
[2020-12-20] MEDS: ASCORBIC ACID 500 MG TAB PO SCH (12:28)
[2020-12-20] MEDS: ZINC SULFATE 220 MG CAP PO SCH (12:28)
[2020-12-20] MEDS: ENOXAPARIN 40 MG/0.4 ML SYRINGE SQ SCH (12:28)
[2020-12-20] MEDS: CHOLECALCIFEROL 25 MCG (1000 IU) TABLET PO SCH (12:28)
--- NOTE | 2020-12-20 13:57 | P.HPIM ---
History of Present Illness H&P Date: 12/20/20 HISTORY OF PRESENT ILLNESS This is a 60-year-old male patient of Dr. Alcantara with long history of colon cancer status post segmental resection of sigmoid colon creation of temporary colostomy October [address] Angel with subsequent reversal done at [facility] with subsequent chemotherapy. 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 He had a recent hospitalization on 11/26 after he was at Dr. Amaya's office with plan to start chemotherapy but p atient was found to be jaundiced and was sent into the hospital for further evaluation. CT of the abdomen showing worsening of hepatic metastatic lesion is a moderate left-sided extrahepatic biliary dilation. Worsening pulmonary metastatic disease. Suspect new retroperitoneal adenopathy. Cannot exclude osseous sclerotic metastatic disease. Interventional radiology was unable to perform percutaneous transhepatic cholangiogram so patient was transferred [facility] and patient states that he was there for one day had a stent placed and was discharged the following day. He then went to [place] with his sisters for a wedding and came back and family members were diagnosed with Covi d, he subsequently went to [place] on Wednesday and tested positive. He states that he was doing okay until yesterday when he couldn't walk due to extreme weakness. He denies any shortness of breath. He has had fever and chills, and go. No nausea or vomiting. He states he has a cough with phlegm but this only occurred once. He said there was a little blood also. He was to have follow-up with oncology but this was rescheduled due to his Covid diagnosis. Patient is vaccinated for Covid 19. Temperature max 102.8, heart rate 129, respiratory rate 17, blood pressure 113/78, pulse ox 96% on 2 L nasal cannula. He subsequently had a drop in his blood pressure with systolic in the 80s status post 3 L of IV fluid. WBC 10.5, hemoglobin 9.2, platelet count 174. INR 2.2. Sodium 129, CO2 19, chloride 97, BUN 25 creatinine 0.68. Blood sugar 124. Total bilirubin is 14, AST 102, ALT 60, alkaline phosphatase 808. Pro- calcitonin 26.9. Coronavirus PCR detected. Chest x-ray reveals very mild peripheral infiltrates which are nonspecific but can be compatible with atypical pneumonia. Patient admitted to the cardiac stepdown unit and consult with pulmonary medicine, oncology. Patient has not candidate for Remdisivir. REVIEW OF SYSTEMS Constitutional: No fever, no chills, no night sweats. Noted weight change. Reports weakness, reports fatigue no lethargy. No daytime sleepiness. EENT: No headache. No blurred vision or double vision, no loss of vision. No loss of Hearing, no ringing in the ears, no dizziness. No nasal drainage or congestion. No epistaxis. No sore throat. Lungs: No shortness of breath, minimal cough, no sputum production. No wh eezing. Cardiovascular: No chest pain, no lower extremity edema. No palpitations. No paroxysmal nocturnal dyspnea. No orthopnea. No lightheadedness or dizziness. No syncopal episodes. Abdominal: Denies abdominal pain. No nausea, vomiting. No diarrhea. No constipation. No bloody or tarry stools.. No loss of appetite. Genitourinary: No dysuria, increased frequency, urgency. No urinary retention. Change in urine color. Musculoskeletal: No myalgias. No muscle weakness, no gait dysfunction, no frequent falls. No back pain. No neck pain. Integumentary: No wounds, no lesions. No rash or pruritus. No unusual bruising. No change in hair or nails. Neurologic: No aphasia. No facial droop. No change in mentation. No head injury. No headache. No paralysis. No paresthesia. Psychiatric: No depression. No anxiety. No mood swings. Endocrine: No abnormal blood sugars. Noted weight loss of 7 kg since last admission. SOCIAL HISTORY Patient is a smoker of one pack per day for greater than 40 years. He also has history of alcohol abuse currently down to a few beers every day. He is single. FAMILY HISTORY Mother is and patient does not know her medical history. Father is at age 87 after a fall which she states caused hemorrhage of his kidney. Patient has 5 sisters and 2 brothers and 2 sisters have passed one from brain cancer and 1 after a fall. He does not have any children. PHYSICAL EXAMINATION Gen: This is a 60-year-old male. He is resting on the edge of the bed and appears to be comfortable. HEENT: Head is atraumatic, normocephalic. Pupils equal, round. Sclerae is anicteric. NECK: Supple. No JVD. No lymphadenopathy. No thyromegaly. LUNGS: Scattered rhonchi. No intercostal retractions. HEART: Regular rate and rhythm. No murmur. ABDOMEN: Soft. Bowel sounds are present. No masses. No tenderness. EXTREMITIES: No pedal edema. No calf tenderness. NEUROLOGICAL: Patient is awake, alert and oriented x3. Cranial nerves 2 through 12 are grossly intact. ASSESSMENT AND PLAN 1. Covid 19. Patient started on dexamethasone 6 mg IV daily, Lovenox 40 mg subcu daily--discontinued as INR is therapeutic at 2.2 secondary to liver diseas e, vitamin D, vitamin C, zinc, we will consult pulmonary medicine. 2. Recent hospitalization for hyperbilirubinemia with jaundice secondary to colon cancer with metastatic disease, status post percutaneous transhepatic cholangiogram/stent at [facility]. 3. Metastatic colon cancer with metastases to the liver and lungs. Consult with oncology. Patient had appointment now rescheduled due to Covid 19. 4. Tobacco use and dependence. Nicotine patch. 5. Alcohol abuse, monitor for DTs. 6. GI prophylaxis. Protonix. 7. DVT prophylaxis. SCDs and BJORN hose right leg. We will hold Lovenox due to INR of 2.2. 8. History of amputation of left foot from farm accident. Patient will be admitted to the hospital for a minimum of 2 night stay. DISCHARGE PLAN Home. Impression and plan of care have been directed as dictated by the signing physician. Melia Perez nurse practitioner acting as scribe for signing physician. Past Medical History Past Medical History: Cancer, GERD/Reflux Additional Past Medical History / Comment(s): Constipation since Jul, 2018. Colon Cancer. covid 12/26 History of Any Multi-Drug Resistant Organisms: None Reported Past Surgical History: Orthopedic Surgery Additional Past Surgical History / Comment(s): lt foot amputation due to farm accident. Bowel resection with colostomy - October 2018. reversal Nov 2019 Past Anesthesia/Blood Transfusion Reactions: No Reported Reaction Past Psychological History: No Psychological Hx Reported Additional Psychological History / Comment(s): Pt resides alone. He uses crutches if he gets up in the night. He has a L lower leg prosthesis. He drives. Smoking Status: Current every day smoker Past Alcohol Use History: None Reported Additional Past Alcohol Use History / Comment(s): Pt started smoking in 1976 and smokes 1.5 ppd. He normally drinks 5-6 beers per day but has not drank anything in a few days d/t not feeling well. Past Drug Use History: None Reported - Past Family History Father Additional Family Medical History / Comment(s): Father had an arterial injury and of this. Mother Family Medical History: Diabetes Mellitus Sister(s) Family Medical History: Cancer Additional Family Medical History / Comment(s): Brain tumor - . Medications and Allergies Home Medications Medication Instructions Recorded Confirmed Type No Known Home Medications 11/26/20 12/19/20 History Allergies Allergy/AdvReac Type Severity Reaction Status Date / Time No Known Allergies Allergy Verified 12/19/20 22:29 Physical Exam Vitals: Vital Signs Temp Pulse Pulse Resp BP BP Pulse Ox 12/20/20 08:08 97 12/20/20 08:00 97.8 F 84 18 83/57 99 12/20/20 06:16 99.5 F 98 18 82/50 97 12/20/20 05:37 18 12/20/20 05:06 97/53 12/20/20 04:35 100.6 F H 120 H 19 12/20/20 03:41 100.1 F H 110 H 18 80/52 98 12/20/20 03:37 102.8 F H 129 H 17 113/78 96 12/20/20 02:01 98.9 F 12/19/20 23:27 97.6 F 71 18 93/61 98 12/19/20 20:40 97.5 F L 73 20 92/63 99 Intake and Output 12/19/20 12/20/20 12/20/20 22:59 06:59 14:59 Other: # Voids 1 Weight 86.183 kg 86.183 kg Results CBC & Chem 7: 12/19/20 22:08 12/19/20 22:08 Labs: Abnormal Lab Results - Last 24 Hours (Table) 12/19/20 12/19/20 12/19/20 Range/Units 22:08 22:08 22:08 RBC 2.78 L (4.30-5.90) m/uL Hgb 9.2 L D (13.0-17.5) gm/dL Hct 26.3 L (39.0-53.0) % Neutrophils # 9.3 H (1.3-7.7) k/uL Lymphocytes # 0.8 L (1.0-4.8) k/uL PT 21.9 H (9.0-12.0) sec INR 2.2 H (<1.2) APTT 34.5 H (22.0-30.0) sec Sodium 129 L (137-145) mmol/L Chloride 97 L (98-107) mmol/L Carbon Dioxide 19 L (22-30) mmol/L BUN 25 H (9-20) mg/dL Glucose 124 H (74-99) mg/dL Calcium 8.3 L (8.4-10.2) mg/dL Magnesium 2.6 H (1.6-2.3) mg/dL Total Bilirubin 14.0 H (0.2-1.3) mg/dL AST 102 H (17-59) U/L ALT 60 H (4-49) U/L Alkaline Phosphatase 808 H (38-126) U/L C-Reactive Protein 19.8 H (<1.0) mg/dL Albumin 2.8 L (3.5-5.0) g/dL Coronavirus (PCR) (Not Detectd) 12/19/20 Range/Units 23:34 RBC (4.30-5.90) m/uL Hgb (13.0-17.5) gm/dL Hct (39.0-53.0) % Neutrophils # (1.3-7.7) k/uL Lymphocytes # (1.0-4.8) k/uL PT (9.0-12.0) sec INR (<1.2) APTT (22.0-30.0) sec Sodium (137-145) mmol/L Chloride (98-107) mmol/L Carbon Dioxide (22-30) mmol/L BUN (9-20) mg/dL Glucose (74-99) mg/dL Calcium (8.4-10.2) mg/dL Magnesium (1.6-2.3) mg/dL Total Bilirubin (0.2-1.3) mg/dL AST (17-59) U/L ALT (4-49) U/L Alkaline Phosphatase (38-126) U/L C-Reactive Protein (<1.0) mg/dL Albumin (3.5-5.0) g/dL Coronavirus (PCR) Detected A (Not Detectd) Thrombosis Risk Factor Assmnt - Choose All That Apply Any of the Below Risk Factors Present?: Yes Each Factor Represents 1 point: Age 41-60 years, Medical pt on bed rest, Serious lung disease incl. pneumonia (< 1month) Other Risk Factors: No Other congenital or acquired thrombophilia - If yes, enter type in comment: No Thrombosis Risk Factor Assessment Total Risk Factor Score: 3 Thrombosis Risk Factor Assessment Level: Moderate Risk
[2020-12-20] MEDS: NICOTINE 21MG/24HR PATCH TRANSDERM SCH (15:01)
--- NOTE | 2020-12-20 20:47 | P.CONS ---
History of Present Illness - Reason for Consult Consult date: 12/20/20 Recent progression of colon cancer Requesting physician: Melia Perez - History of Present Illness Colon Cancer Follow Up Visit Follow Up after CT Scan HPI : This is a very nice patient who present with intermittent,progressing abdominal pain,worsening constipation and about 30 pounds weight loss,started in July/2018,he went to [facility] in October/2018,abdominal Xray revealed evidence of dilated small bowel loops,had a CT scan of abdomen/pelvis on 11/02/2018 which revealed several hypodensities lesions in the liver,largest about 2.2cm,mass like area in mid descending colon and several loops of small bowel and colon with marked dilatation,his CBC and iron studies revealed iron deficiency ane disha,his CEA was 5.6. On 11/03/2018,he underwent segmental resection of sigmoid colon and creation of temporary colostomy,pathology revealed grade 2,invasive adenocarcinoma,no perforation,no LVI,negative margins,T3 lesion,total 22 regional nodes were negative, His disease is MSI-Stable,HER2/TISHA negative,NRAS,KRAS,BRAF mutations were negative. On 12/13/2018,MRI of the liver showed 4 liver lesions,3 in right hepatic lobe,largest 3.6cm,one in central mid liver,1.8cm. On 12/13/2018,CT scan of chest revealed non specific mediastinal node. On 01/25/2019,he started FOLFOX/Avastin regimen On 03/14/2019,repeat CT scan of chest/abdomen/pelvis revealed improvement in his liver lesions. On 05/16/2019 repeat MRI of liver revealed improvement in his liver lesions. On 05/16/2019,repeat CT scan of chest revealed possible osseous sclerotic lesions. Bone scan on 06/13/2019 was negative for metastatic disease,reviewed with radiologist. he completed 12 cycles of FOLFOX/avastin on 07/07/2019. On 07/28/2019,PET scan did not show any osseous lesion,improvement in liver lesions. Repeat liver MRI on 08/07/2019 showed continuing improvement in his liver lesion. he started xeloda on 08/24/2019 Repeat imaging in August/2019continued to revealed improvement in his disease. He was referred to Dr Knutson,underwent resection of his primary and revision of colostomy and surgical partial hepatectomy and intra operative ablation of liver lesions. On 12/05/2019,he went back to [facility] for attempted ablation of one remaing liver lesion,however,it was cancelled due to left intrahepatic biliary duct dilatation. On 01/03/2020,he underwent TheraSphere radioembolization of segment 1,segment 4A and segment 8. On 01/20/2020,his LFT wer up (possibly related to recent TheraSphere),CEA was 12. On 01/31/2020,repeat CT scan of chest/abdomen/pelvis revealed progression of liver lesions ?(was reviewed at tumor board at [facility] and felt there was no recurrence). On 03/21/2020,CEA was 7.9 Xeloda was held. On 04/24/2020,repeat CT scan of chest/abdomen/pelvis revealed improvement in the liver finding (felt to be secondary to previous liver directed therapy),however,there was 2 new lung nodules. On 05/01/2020,CEA was 10.6 On 05/17/2020,PET scan revealed no uptake in the small 2 lungs nodules. On 07/12/2020,repeat CT scan of chest/abdomen/pelvis revealed new small (subcentimeter) lung nodules,otherwise stable He did not schedule his follow up CT scan of chest until 11/07/2020 which revealed disease progression in lungs and liver. he was therefore seen by Dr. Amaya and plan is to start FOLFOX and Anti-Angiogenesis next week Review of Systems All systems: negative Constitutional: Reports as per HPI Past Medical History Past Medical History: Cancer, GERD/Reflux Additional Past Medical History / Comment(s): Constipation since Jul, 2018. Colon Cancer. covid 12/26 History of Any Multi-Drug Resistant Organisms: None Reported Past Surgical History: Orthopedic Surgery Additional Past Surgical History / Comment(s): lt foot amputation due to farm accident. Bowel resection with colostomy - October 2018. reversal Nov 2019 Past Anesthesia/Blood Transfusion Reactions: No Reported Reaction Past Psychological History: No Psychological Hx Reported Additional Psychological History / Comment(s): Pt resides alone. He uses cr utches if he gets up in the night. He has a L lower leg prosthesis. He drives. Smoking Status: Current every day smoker Past Alcohol Use History: None Reported Additional Past Alcohol Use History / Comment(s): Pt started smoking in 1976 and smokes 1.5 ppd. He normally drinks 5-6 beers per day but has not drank anything in a few days d/t not feeling well. Past Drug Use History: None Reported - Past Family History Father Additional Family Medical History / Comment(s): Father had an arterial injury and of this. Mother Family Medical History: Diabetes Mellitus Sister(s) Family Medical History: Cancer Additional Family Medical History / Comment(s): Brain tumor - . Medications and Allergies Home Medications Medication Instructions Recorded Confirmed Type No Known Home Medications 11/26/20 12/19/20 History Allergies Allergy/AdvReac Type Severity Reaction Status Date / Time No Known Allergies Allergy Verified 12/19/20 22:29 Physical Exam Vitals: Vital Signs Temp Pulse Pulse Resp BP BP Pulse Ox 12/20/20 12:00 97.3 F L 77 18 89/64 99 12/20/20 08:08 97 12/20/20 08:00 97.8 F 84 18 83/57 99 12/20/20 06:16 99.5 F 98 18 82/50 97 12/20/20 05:37 18 12/20/20 05:06 97/53 12/20/20 04:35 100.6 F H 120 H 19 12/20/20 03:41 100.1 F H 110 H 18 80/52 98 12/20/20 03:37 102.8 F H 129 H 17 113/78 96 12/20/20 02:01 98.9 F 12/19/20 23:27 97.6 F 71 18 93/61 98 12/19/20 20:40 97.5 F L 73 20 92/63 99 Intake and Output 12/20/20 12/20/20 12/20/20 06:59 14:59 22:59 Intake Total 700 Balance 700 Intake: Intake, IV Titration 700 Amount Sodium Chloride 0.9% 1, 700 000 ml @ 100 mls/hr IV . Q10H [facility] Rx#:[id number] Other: # Voids 1 1 # Bowel Movements 1 Weight 86.183 kg - Constitutional General appearance: cooperative, no acute distress - EENT Eyes: PERRLA - Respiratory Respiratory: bilateral: diminished - Cardiovascular Rhythm: regularly irregular leg Peripheral Edema: absent: Trace (BKA) - Gastrointestinal General gastrointestinal: soft - Integumentary Integumentary: pale - Musculoskeletal Musculoskeletal: generalized weakness - Psychiatric Psychiatric: A&O x's 3 Results CBC & Chem 7: 12/19/20 22:08 12/19/20 22:08 Labs: Abnormal Lab Results - Last 24 Hours (Table) 12/19/20 12/19/20 12/19/20 Range/Units 22:08 22:08 22:08 RBC 2.78 L (4.30-5.90) m/uL Hgb 9.2 L D (13.0-17.5) gm/dL Hct 26.3 L (39.0-53.0) % Neutrophils # 9.3 H (1.3-7.7) k/uL Lymphocytes # 0.8 L (1.0-4.8) k/uL PT 21.9 H (9.0-12.0) sec INR 2.2 H (<1.2) APTT 34.5 H (22.0-30.0) sec Sodium 129 L (137-145) mmol/L Chloride 97 L (98-107) mmol/L Carbon Dioxide 19 L (22-30) mmol/L BUN 25 H (9-20) mg/dL Glucose 124 H (74-99) mg/dL Calcium 8.3 L (8.4-10.2) mg/dL Magnesium 2.6 H (1.6-2.3) mg/dL Total Bilirubin 14.0 H (0.2-1.3) mg/dL AST 102 H (17-59) U/L ALT 60 H (4-49) U/L Alkaline Phosphatase 808 H (38-126) U/L C-Reactive Protein 19.8 H (<1.0) mg/dL Albumin 2.8 L (3.5-5.0) g/dL Procalcitonin (0.02-0.09) ng/mL Coronavirus (PCR) (Not Detectd) 12/19/20 12/19/20 Range/Units 22:08 23:34 RBC (4.30-5.90) m/uL Hgb (13.0-17.5) gm/dL Hct (39.0-53.0) % Neutrophils # (1.3-7.7) k/uL Lymphocytes # (1.0-4.8) k/uL PT (9.0-12.0) sec INR (<1.2) APTT (22.0-30.0) sec Sodium (137-145) mmol/L Chloride (98-107) mmol/L Carbon Dioxide (22-30) mmol/L BUN (9-20) mg/dL Glucose (74-99) mg/dL Calcium (8.4-10.2) mg/dL Magnesium (1.6-2.3) mg/dL Total Bilirubin (0.2-1.3) mg/dL AST (17-59) U/L ALT (4-49) U/L Alkaline Phosphatase (38-126) U/L C-Reactive Protein (<1.0) mg/dL Albumin (3.5-5.0) g/dL Procalcitonin 26.90 H (0.02-0.09) ng/mL Coronavirus (PCR) Detected A (Not Detectd) Chest x-ray: report reviewed Assessment and Plan (1) COVID-19 Current Visit: Yes Status: Acute Code(s): U07.1 - COVID-19 SNOMED Code(s): 129999057 (2) Colon cancer Current Visit: No Status: Acute Priority: High Code(s): C18.9 - MALIGNANT NEOPLASM OF COLON, UNSPECIFIED SNOMED Code(s): 388336545 Plan: Continue supportive care per primary team, ID and Pulmonology Will start next line chemo after discharge - FOLFOX and Anti-angiogenesis Physician Attest: I have completed the full history and physical and agree with above dictation, dictated as a scribe
[2020-12-20] MEDS ORDERED: AZITHROMYCIN 500 MG TAB PO STA (23:24)
--- NOTE | 2020-12-20 23:28 | P.CONS ---
History of Present Illness - Reason for Consult Consult date: 12/20/20 covid Pneumonia Requesting physician: Melia Perez - Chief Complaint Generalized weakness and fatigue x few days - History of Present Illness History of present illness : Patient is 60-year-old male presenting to the ER last night for evaluation of generalized weakness and fatigue along with exertional dyspnea that has been going on for more than a week patient denies having any chest pain he did have a cough which is mild in intensity not bringing up any sputum some nausea but no vomiting no abdominal pain no diarrhea patient did have a history of stage IV colon cancer for the patient has received chemotherapy about a year ago patient on presentation to the hospital was afebrile subsequently spiked a fever of 102 degrees forearm height patient is not hypoxic not requiring any supplemental oxygen currently 98 to 99% on room air patient did have a normal white count with lymphopenia creatinine was normal liver enzymes are elevated procalcitonin 6.90 [place] PCR was positive patient did have a chest x-ray mild peripheral infiltrates which are nonspecific compatible with atypical pneumonia infectious disease was consulted for COVID-19 infection patient overall not a very good historian so most information has been extracted from review the chart Review of system: CONSTITUTIONAL: Positive for weakness along with the fever. EYES: No complaint. ENT: No complaint. RESPIRATORY: As per history of present illness. CARDIOVASCULAR: No complaint. GENITOURINARY: No complaint. GASTROINTESTINAL: As per history of present illness. MUSCULOSKELETAL: No complaint. INTEGUMENTARY: No complaint. PSYCHOLOGIC: No complaint. ENDOCRINE: No complaint. NEUROLOGIC: No complaint. Past medical history : Reviewed, documented below Past surgical history : Reviewed, documented below Social history: Reviewed, documented below Medications: Reviewed, as documented below EXAMINATION: Vital sigans= Reviewed and documented below GENERAL DESCRIPTION: Middle-aged male lying in bed, no distress. No tachypnea or accessory muscle of respiration use. HEENT: Shows Pallor , no scleral icterus. Oral mucous membrane is dry. NECK: Trachea central, no thyromegaly. LUNGS: Unlabored breathing. Decreased breath sounds at the base. No wheeze or crackle. HEART: S1, S2, regular rate and rhythm. ABDOMEN: Soft, no tenderness , guarding or rigidity EXTREMITIES: No edema of feet. SKIN: No rash, no masses palpable. NEUROLOGICAL: The patient is awake, alert, oriented x3, mood and affect normal. LABS AND RADIOLOGY: Reviewed results see below Assessment : 1-patient presented to hospital with weakness and exertional dyspnea in this patient who did have a history of metastatic colon cancer patient did have a fever chest x-ray with some right lower lobe infiltrate the patient also have elevated liver enzymes could be related to his underlying metastatic disease however the patient did have a significantly elevated procalcitonin with a clinical suspicion for possible bacterial pneumonia versus cholangitis with a likely source Plan: 1-we will try to obtain a sputum for Gram stain culture 2-start the patient on Rocephin and Zithromax 3-gentle IV fluid We will follow on clinical condition and cultures to further adjust medication if needed Thank you for this consultation we will follow the patient along with you Past Medical History Past Medical History: Cancer, GERD/Reflux Additional Past Medical History / Comment(s): Constipation since Jul, 2018. Colon Cancer. covid 12/26 History of Any Multi-Drug Resistant Organisms: None Reported Past Surgical History: Orthopedic Surgery Additional Past Surgical History / Comment(s): lt foot amputation due to farm accident. Bowel resection with colostomy - October 2018. reversal Nov 2019 Past Anesthesia/Blood Transfusion Reactions: No Reported Reaction Past Psychological History: No Psychological Hx Reported Additional Psychological History / Comment(s): Pt resides alone. He uses cr utches if he gets up in the night. He has a L lower leg prosthesis. He drives. Smoking Status: Current every day smoker Past Alcohol Use History: None Reported Additional Past Alcohol Use History / Comment(s): Pt started smoking in 1976 and smokes 1.5 ppd. He normally drinks 5-6 beers per day but has not drank anything in a few days d/t not feeling well. Past Drug Use History: None Reported - Past Family History Father Additional Family Medical History / Comment(s): Father had an arterial injury and of this. Mother Family Medical History: Diabetes Mellitus Sister(s) Family Medical History: Cancer Additional Family Medical History / Comment(s): Brain tumor - . Medications and Allergies Home Medications Medication Instructions Recorded Confirmed Type No Known Home Medications 11/26/20 12/19/20 History Allergies Allergy/AdvReac Type Severity Reaction Status Date / Time No Known Allergies Allergy Verified 12/19/20 22:29 Physical Exam Vitals: Vital Signs Temp Pulse Pulse Resp BP BP Pulse Ox 12/20/20 12:00 97.3 F L 77 18 89/64 99 12/20/20 08:08 97 12/20/20 08:00 97.8 F 84 18 83/57 99 12/20/20 06:16 99.5 F 98 18 82/50 97 12/20/20 05:37 18 12/20/20 05:06 97/53 12/20/20 04:35 100.6 F H 120 H 19 12/20/20 03:41 100.1 F H 110 H 18 80/52 98 12/20/20 03:37 102.8 F H 129 H 17 113/78 96 12/20/20 02:01 98.9 F 12/19/20 23:27 97.6 F 71 18 93/61 98 12/19/20 20:40 97.5 F L 73 20 92/63 99 Intake and Output 12/20/20 12/20/20 12/20/20 06:59 14:59 22:59 Intake Total 700 Balance 700 Intake: Intake, IV Titration 700 Amount Sodium Chloride 0.9% 1, 700 000 ml @ 100 mls/hr IV . Q10H [facility] Rx#:[id number] Other: # Voids 1 1 # Bowel Movements 1 Weight 86.183 kg Results CBC & Chem 7: 12/19/20 22:08 12/19/20 22:08 Labs: Abnormal Lab Results - Last 24 Hours (Table) 12/19/20 12/19/20 12/19/20 Range/Units 22:08 22:08 22:08 RBC 2.78 L (4.30-5.90) m/uL Hgb 9.2 L D (13.0-17.5) gm/dL Hct 26.3 L (39.0-53.0) % Neutrophils # 9.3 H (1.3-7.7) k/uL Lymphocytes # 0.8 L (1.0-4.8) k/uL PT 21.9 H (9.0-12.0) sec INR 2.2 H (<1.2) APTT 34.5 H (22.0-30.0) sec Sodium 129 L (137-145) mmol/L Chloride 97 L (98-107) mmol/L Carbon Dioxide 19 L (22-30) mmol/L BUN 25 H (9-20) mg/dL Glucose 124 H (74-99) mg/dL Calcium 8.3 L (8.4-10.2) mg/dL Magnesium 2.6 H (1.6-2.3) mg/dL Total Bilirubin 14.0 H (0.2-1.3) mg/dL AST 102 H (17-59) U/L ALT 60 H (4-49) U/L Alkaline Phosphatase 808 H (38-126) U/L C-Reactive Protein 19.8 H (<1.0) mg/dL Albumin 2.8 L (3.5-5.0) g/dL Procalcitonin (0.02-0.09) ng/mL Coronavirus (PCR) (Not Detectd) 12/19/20 12/19/20 Range/Units 22:08 23:34 RBC (4.30-5.90) m/uL Hgb (13.0-17.5) gm/dL Hct (39.0-53.0) % Neutrophils # (1.3-7.7) k/uL Lymphocytes # (1.0-4.8) k/uL PT (9.0-12.0) sec INR (<1.2) APTT (22.0-30.0) sec Sodium (137-145) mmol/L Chloride (98-107) mmol/L Carbon Dioxide (22-30) mmol/L BUN (9-20) mg/dL Glucose (74-99) mg/dL Calcium (8.4-10.2) mg/dL Magnesium (1.6-2.3) mg/dL Total Bilirubin (0.2-1.3) mg/dL AST (17-59) U/L ALT (4-49) U/L Alkaline Phosphatase (38-126) U/L C-Reactive Protein (<1.0) mg/dL Albumin (3.5-5.0) g/dL Procalcitonin 26.90 H (0.02-0.09) ng/mL Coronavirus (PCR) Detected A (Not Detectd)
[2020-12-21] MEDS: PANTOPRAZOLE 40 MG TABLET PO SCH (06:30)
[2020-12-21] MEDS: AZITHROMYCIN 250 MG TAB PO SCH (08:17)
[2020-12-21] MEDS: ENOXAPARIN 40 MG/0.4 ML SYRINGE SQ SCH (08:17)
[2020-12-21] MEDS: DEXAMETHASONE SOD PHOSPHATE 10 MG/ML 1 ML VIAL IV SCH (08:17)
[2020-12-21] MEDS: CHOLECALCIFEROL 25 MCG (1000 IU) TABLET PO SCH (08:18)
[2020-12-21] MEDS: ZINC SULFATE 220 MG CAP PO SCH (08:18)
[2020-12-21] MEDS: ASCORBIC ACID 500 MG TAB PO SCH (08:18)
[2020-12-21] MEDS: FAMOTIDINE 20 MG TAB PO SCH ×2 (08:18→20:04)
[2020-12-21] MEDS: NICOTINE 21MG/24HR PATCH TRANSDERM SCH (08:23)
--- NOTE | 2020-12-21 13:44 | P.PN ---
Subjective Progress Note Date: 12/21/20 Principal diagnosis: COVID-19 pneumonia 60-year-old male who presents to the emergency department on December 19, complaining of shortness of breath and weakness. He also has generalized fatigue. He apparently is been sick for about 11 or 12 days. The patient actually started getting sick I believe last Wednesday. He apparently was recently diagnosed with coronavirus infection. The patient states that since then, his symptoms have worsened. He states he is very weak and cannot walk. He states that he falls down. The patient does have a history of stage IV colon cancer, and is quite jaundiced. The patient follows up with Dr. Amaya, in medical oncology, but has not had any treatment or chemotherapy for some time. The patient also states that he recently had a procedure to [facility] on his liver. He was not able to elaborate. The patient is not a particularly good historian. He is getting 2 L by nasal cannula and saline at 100 mL an hour. The patient did get a vaccine against coronavirus in August. He states he got the Moderna vaccine. The patient is a prior smoker as well. The patient also complains of cough, and scratchy throat. His medical history is positive for gastroesophageal reflux disease, colon cancer, and constipation. The ibis ent has had a bowel resection with colostomy, and subsequent reversal, and traumatic amputation of his left foot from a farm accident. Family history is positive for diabetes mellitus. White count 10.5, hemoglobin 9.2, hematocrit 26.3, and platelet count 174,000. PT 21.9, INR 2.2, PTT is 34.5. Sodium 129, potassium 3.9, chloride 97, and CO2 19. Anion gap 13, BUN 25, and creatinine 0.68. Total bilirubin 14.0 AST 102 ALT 60 and alkaline phosphatase 808. C- reactive protein is 19.8. N-terminal proBNP is 1620. Coronavirus testing was positive on December 19. Chest x-ray shows some minimal peripheral infiltrates. The patient is seen today 12/21/2020 in follow-up on the selective care unit. He is currently sitting up in bed. Awake and alert in no acute distress. Feeling a bit better today compared to yesterday. He is maintaining O2 saturations in the 90s on room air. His pro calcitonin was high at 26.9. Blood cultures are positive for E. coli. Currently on ceftriaxone and azithromycin. . He remains on Decadron, Lovenox, vitamin supplements. NicoDerm patch in place. Objective - Vital Signs Vital signs: Vital Signs Temp 97.4 F L 12/21/20 08:00 Pulse 72 12/21/20 12:53 Resp 18 12/21/20 12:53 BP 106/63 12/21/20 12:53 Pulse Ox 100 12/21/20 12:53 Intake & Output 12/20/20 12/21/20 12/21/20 18:59 06:59 18:59 Intake Total 1100 980 Output Total 1000 1550 Balance 100 -1550 980 Weight 92 kg Intake: Intake, IV Titration 1100 800 Amount Sodium Chloride 0.9% 1, 1100 800 000 ml @ 100 mls/hr IV . Q10H [facility] Rx#:[id number] Oral 180 Output: Urine 1000 1550 Other: Voiding Method Urinal # Voids 1 # Bowel Movements 1 1 - Exam No acute distress, oriented 3. Very poor historian. 60-year-old gentleman, appears older than stated age. On room air. No significant respiratory distress, audible wheezing, use of accessory muscles or conversational dyspnea. HEENT examination is grossly unremarkable. Scleral icterus. Neck supple. Full range of motion. No adenopathy thyromegaly or neck vein distention. Cardiovascular examination reveals regular rhythm rate. S1-S2 normal. No S3 or S4. No discernible murmur noted. Lungs reveal mild to moderate rhonchi. No wheezes or crackles. Breath sounds equal bilaterally. Abdomen soft bowel sounds are heard. No masses or tenderness. Extremities are intact. No cyanosis clubbing or edema. Skin reveals significant jaundice. Neurologic examination is brief but nonfocal. - Labs CBC & Chem 7: 12/19/20 22:08 12/19/20 22:08 Labs: Abnormal Lab Results - Last 24 Hours (Table) 12/19/20 Range/Units 22:08 Ferritin 2787.0 H (22.0-322.0) ng/mL Microbiology - Last 24 Hours (Table) 12/19/20 22:08 Blood Culture Gram Stain - Preliminary Blood Blood Culture - Preliminary Escherichia coli 12/19/20 22:08 Blood Culture Gram Stain - Preliminary Blood 12/19/20 22:08 Blood Culture - Final Blood 12/19/20 22:08 Blood Culture - Final Blood Assessment and Plan Assessment: 1 Mild to moderate hypoxemic respiratory failure secondary to coronavirus associated pneumonia. Improved on room air 2 History of stage IV colon cancer, status post remote history of chemotherapy. 3 Severe hyperbilirubinemia/jaundice. History of bile duct stent placement at [facility] 4 Bacteremia secondary to E. coli 5 Previous history of colon resection with colostomy, and subsequent reversal. 6 Chronic constipation. 7 History of gastroesophageal reflux disease. 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 9 Prior history of tobacco use. plan: The patient was seen and evaluated by Dr. Saad Hodges from the pulmonary standpoint, on room air On ceftriaxone and azithromycin Continue Decadron, Lovenox, vitamin supplements We will continue to follow I, the cosigning physician, performed a history & physical examination of the patient. Lungs sounds mild bilateral scattered rhonchir. Maintaining good O2 saturations in the 90s on room air. I discussed the assessment and plan of care with my nurse practitioner, Evette Mccarthy. I attest to the above note as dictated by her.
[2020-12-21] MEDS: SODIUM CHLORIDE 0.9% 1,000 ML IV SCH ×3 (16:29→22:40)
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
--- NOTE | 2020-12-21 17:39 | PN ---
PROGRESS NOTE DATE OF SERVICE: 12/21/2020 REASON FOR FOLLOWUP: Pneumonia. INTERVAL HISTORY: The patient is afebrile today. The patient is more awake and alert and he is breathing comfortably on room air. The patient denies having any chest pain. Did have a cough; no worsening. No abdominal pain and no diarrhea. PHYSICAL EXAMINATION: Blood pressure /63, pulse of 72, temperature 97.4. He is 100% on room air. General description is a middle-aged male lying in bed in no distress. RESPIRATORY SYSTEM: Unlabored breathing. Decreased intensity of breath sounds. No wheeze. HEART: S1, S2. Regular rate and rhythm. ABDOMEN: Soft. No tenderness. LABS: No new labs have been obtained today. The patient's blood culture is coming back positive with E coli. DIAGNOSTIC IMPRESSION AND PLAN: Patient with a fever with evidence of Escherichia coli bacteremia; possible abdominal source versus urinary source. We will go ahead and obtain a UA. If the urine is negative, will obtain a CT of abdomen and pelvis. Patient is covered with Rocephin. That will be continued for now. Continue supportive care. MMODL / IJN: [id number] /
[2020-12-21] MEDS: IOPAMIDOL CONTRAST (ORAL USE) VIAL PO PRN ×2 (18:58→20:05)
[2020-12-21 19:14] LABS: Appearance,Urine Clear (Clear); Bilirubin,Urine 2+ (Negative); Blood,Urine Trace (Negative); Color,Urine Dark Yellow; Glucose,Urine (UA) Trace (Negative); Ketones,Urine Negative (Negative); Leukocyte Esterase,Urine Negative (Negative); Nitrite,Urine Negative (Negative); PH, Urine 6.5 (5.0-8.0); Protein,Urine Trace (Negative); RBC,Urine 5 /hpf (0-5); Specific Gravity,Urine 1.016 (1.001-1.035); WBC,Urine 1 /hpf (0-5)
[2020-12-21 21:03] LABS: Glucose,Whole Blood 148 mg/dL (75-99)
--- NOTE | 2020-12-21 21:31 | CT ---
EXAMINATION TYPE: CT abdomen pelvis w con DATE OF EXAM: 12/21/2020 COMPARISON: 11/26/2020 HISTORY: bactermeia and covid Metastatic colon cancer. CT DLP: 1191.7 mGycm Automated exposure control for dose reduction was used. CONTRAST: Performed with IV Contrast, patient injected with 100 mL of Isovue 300. There is a small right pleural effusion. There is mild subsegmental atelectasis at the lung bases. There is some air in the biliary tree. There is large irregular low density mass in the central liver . Margins are indistinct and this measures approximately 11 cm in greatest dimension. There is dilate d left lobe hepatic ducts. There are smaller low-density masses in the anterior and lateral right lob e of the liver that measure up to 3.5 cm. There is a biliary stent noted. Spleen is intact. There is no pancreatic mass. There is some edema at the shaheen hepatis. There is fluid in the retroperitoneal s pace on the right side anterior to the right kidney. There is oral contrast in the stomach. There is oral contrast in the small bowel and extending to the hepatic flexure of the colon. There is no adrenal mass. Kidneys show satisfactory contrast opacification. There is [address] posterior right kidney. There is 1.5 cm cortical cyst lateral right kidney. There is 4 mm calculus lateral right kidney. There is no hydronephrosis. Ureters are not dilated. There are multiple small retroperitoneal lymph nodes that measure up to 1 cm. There is some free fluid in the pelvis. Bladder distends smoothly. There is no inguinal hernia. There are surgical clips in the sigmoid colon. There is no evidence of free air. I see no evidence of a bowel obstruction. Lumbar vertebra have normal alignment. Disc spaces are fairly normal. There is slight compression def ormity of L1 vertebra 15%. The bony pelvis appears intact. IMPRESSION: Large central liver mass consistent with tumor which is very slightly increased compared to recent ex am. There are other smaller more peripheral masses in the liver. These liver masses are consistent with m etastatic disease. There is biliary stent noted with reflux into the right lobe of the liver. There i s no significant improvement in the dilated ducts involving the left hepatic lobe. There are scattered multiple retroperitoneal lymph nodes not significantly different.
[2020-12-22] MEDS: SODIUM CHLORIDE 0.9% 1,000 ML IV SCH ×3 (06:18→22:20)
[2020-12-22] MEDS: PANTOPRAZOLE 40 MG TABLET PO SCH (06:18)
[2020-12-22] MEDS: ZINC SULFATE 220 MG CAP PO SCH (08:33)
[2020-12-22] MEDS: AZITHROMYCIN 250 MG TAB PO SCH (08:33)
[2020-12-22] MEDS: ASCORBIC ACID 500 MG TAB PO SCH (08:33)
[2020-12-22] MEDS: CHOLECALCIFEROL 25 MCG (1000 IU) TABLET PO SCH (08:33)
[2020-12-22] MEDS: ENOXAPARIN 40 MG/0.4 ML SYRINGE SQ SCH (08:33)
[2020-12-22] MEDS: DEXAMETHASONE SOD PHOSPHATE 10 MG/ML 1 ML VIAL IV SCH (08:34)
[2020-12-22] MEDS: FAMOTIDINE 20 MG TAB PO SCH ×2 (08:34→21:02)
[2020-12-22] MEDS: NICOTINE 21MG/24HR PATCH TRANSDERM SCH (08:34)
[2020-12-22 08:48] LABS: ALT 111 U/L (4-49); AST 178 U/L (17-59); African American GFR (CKD) >90 (>60 ml/min/1.73 sqM); Albumin 2.2 g/dL (3.5-5.0); Alkaline Phosphatase 738 U/L (38-126); Anion Gap 5 mmol/L; Blood Urea Nitrogen 17 mg/dL (9-20); Calcium 8.3 mg/dL (8.4-10.2); Carbon Dioxide 20 mmol/L (22-30); Chloride 108 mmol/L (98-107); Glucose 118 mg/dL (74-99); Non-African American GFR(CKD) >90 (>60 ml/min/1.73 sqM); Potassium 3.6 mmol/L (3.5-5.1); Sodium 133 mmol/L (137-145); Total Bilirubin 8.5 mg/dL (0.2-1.3); Total Protein 5.5 g/dL (6.3-8.2)
[2020-12-22 09:16] LABS: Basophils % (A) 0 %; Eosinophils % (A) 0 %; HCT 25.8 % (39.0-53.0); HGB 8.7 gm/dL (13.0-17.5); Lymphocytes # (A) 1.1 k/uL (1.0-4.8); Lymphocytes % (A) 14 %; MCH 32.4 pg (25.0-35.0); MCHC 33.6 g/dL (31.0-37.0); MCV 96.4 fL (80.0-100.0); Mean Platelet Volume 10.7; Monocytes # (A) 0.2 k/uL (0-1.0); Monocytes % (A) 3 %; Neutrophils # (A) 6.2 k/uL (1.3-7.7); Neutrophils % (A) 79 %; Platelet Count 166 k/uL (150-450); RBC 2.68 m/uL (4.30-5.90); RDW 14.7 % (11.5-15.5); WBC 7.8 k/uL (3.8-10.6)
[2020-12-22 11:43] LABS: Glucose,Whole Blood 156 mg/dL (75-99)
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
--- NOTE | 2020-12-22 14:30 | P.PN ---
Subjective Progress Note Date: 12/22/20 Principal diagnosis: Dyspnea, hypoxia, COVID-19 pneumonia 60-year-old male who presents to the emergency department on December 19, complaining of shortness of breath and weakness. He also has generalized fatigue. He apparently is been sick for about 11 or 12 days. The patient actually started getting sick I believe last Wednesday. He apparently was recently diagnosed with coronavirus infection. The patient states that since then, his symptoms have worsened. He states he is very weak and cannot walk. He states that he falls down. The patient does have a history of stage IV colon cancer, and is quite jaundiced. The patient follows up with Dr. Amaya, in medical oncology, but has not had any treatment or chemotherapy for some time. The patient also states that he recently had a procedure to [facility] on his liver. He was not able to elaborate. The patient is not a particularly good historian. He is getting 2 L by nasal cannula and saline at 100 mL an hour. The patient did get a vaccine against coronavirus in August. He states he got the Moderna vaccine. The patient is a prior smoker as well. The patient also complains of cough, and scratchy throat. His medical history is positive for gastroesophageal reflux disease, colon cancer, and constipation. 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 Family history is positive for diabetes mellitus. White count 10.5, hemoglobin 9.2, hematocrit 26.3, and platelet count 174,000. PT 21.9, INR 2.2, PTT is 34.5. Sodium 129, potassium 3.9, chloride 97, and CO2 19. Anion gap 13, BUN 25, and creatinine 0.68. Total bilirubin 14.0 AST 102 ALT 60 and alkaline phosphatase 808. C- reactive protein is 19.8. N-terminal proBNP is 1620. Coronavirus testing was positive on December 19. Chest x-ray shows some minimal peripheral infiltrates. The patient is seen today 12/21/2020 in follow-up on the selective care unit. He is currently sitting up in bed. Awake and alert in no acute distress. F eeling a bit better today compared to yesterday. He is maintaining O2 saturations in the 90s on room air. His pro calcitonin was high at 26.9. Blood cultures are positive for E. coli. Currently on ceftriaxone and azithromycin. . He remains on Decadron, Lovenox, vitamin supplements. NicoDerm patch in place. On 12/22/2020 patient seen in follow-up on selective care unit, he is currently on room air, pulse ox is 96%, breathing comfortably, awake and alert, oriented 3, afebrile, hemodynamically stable, he remains on a combination of azithromycin and Rocephin, in view of his elevated pro calcitonin which was 26.9, urinalysis was negative for urinary tract infection, this blood cultures were positive for E. coli. he denies any open wounds. No indwelling lines, CT of the abdomen and pelvis was completed showing large central liver mass consistent with tumor, and metastatic disease, there was biliary stent with reflux into the right lobe of the liver, there is scattered multiple retro peritoneal lymph nodes not significantly different. So remains on Decadron and Lovenox 40 mg daily. Patient has a known history of metastatic colon cancer with metastasis to the liver and lungs. Objective - Vital Signs Vital signs: Vital Signs Temp 97.5 F L 12/22/20 12:00 Pulse 59 L 12/22/20 12:00 Resp 20 12/22/20 12:00 BP 90/61 12/22/20 12:00 Pulse Ox 97 12/22/20 12:00 Intake & Output 12/21/20 12/22/20 12/22/20 18:59 06:59 18:59 Intake Total 980 500 480 Output Total 1600 Balance 980 -1100 480 Weight 93.5 kg Intake: Intake, IV Titration 800 500 Amount Sodium Chloride 0.9% 1, 800 500 000 ml @ 100 mls/hr IV . Q10H [facility] Rx#:[id number] Oral 180 480 Output: Urine 1600 Other: Voiding Method Urinal Urinal # Voids 1 # Bowel Movements 1 - Exam GENERAL EXAM: Alert, very pleasant, 52-year-old white male, on room air, with pulse ox of 97% comfortable in no apparent distress. HEAD: Normocephalic/atraumatic. EYES: Normal reaction of pupils, equal size. Conjunctiva pink, sclera white. NOSE: Clear with pink turbinates. THROAT: No erythema or exudates. NECK: No masses, no JVD, no thyroid enlargement, no adenopathy. CHEST: No chest wall deformity. Symmetrical expansion. LUNGS: Equal air entry with no crackles, wheeze, rhonchi or dullness. CVS: Regular rate and rhythm, normal S1 and S2, no gallops, no murmurs, no rubs ABDOMEN: Soft, nontender. No hepatosplenomegaly, normal bowel sounds, no guarding or rigidity. EXTREMITIES: No clubbing, no edema, no cyanosis, 2+ pulses and upper and lower extremities. MUSCULOSKELETAL: Muscle strength and tone normal. SPINE: No scoliosis or deformity SKIN: No rashes CENTRAL NERVOUS SYSTEM: Alert and oriented -3. No focal deficits, tone is normal in all 4 extremities. PSYCHIATRIC: Alert and oriented -3. Appropriate affect. Intact judgment and insight. - Labs CBC & Chem 7: 12/22/20 08:03 12/22/20 08:03 Labs: Abnormal Lab Results - Last 24 Hours (Table) 12/21/20 12/21/20 12/22/20 Range/Units 19:03 20:44 08:03 RBC 2.68 L (4.30-5.90) m/uL Hgb 8.7 L (13.0-17.5) gm/dL Hct 25.8 L (39.0-53.0) % Sodium (137-145) mmol/L Chloride (98-107) mmol/L Carbon Dioxide (22-30) mmol/L Creatinine (0.66-1.25) mg/dL Glucose (74-99) mg/dL POC Glucose (mg/dL) 148 H (75-99) mg/dL Calcium (8.4-10.2) mg/dL Total Bilirubin (0.2-1.3) mg/dL AST (17-59) U/L ALT (4-49) U/L Alkaline Phosphatase (38-126) U/L Total Protein (6.3-8.2) g/dL Albumin (3.5-5.0) g/dL Urine Protein Trace H (Negative) Urine Glucose (UA) Trace H (Negative) Urine Blood Trace H (Negative) Urine Bilirubin 2+ H (Negative) 12/22/20 12/22/20 Range/Units 08:03 11:41 RBC (4.30-5.90) m/uL Hgb (13.0-17.5) gm/dL Hct (39.0-53.0) % Sodium 133 L (137-145) mmol/L Chloride 108 H (98-107) mmol/L Carbon Dioxide 20 L (22-30) mmol/L Creatinine 0.49 L (0.66-1.25) mg/dL Glucose 118 H (74-99) mg/dL POC Glucose (mg/dL) 156 H (75-99) mg/dL Calcium 8.3 L (8.4-10.2) mg/dL Total Bilirubin 8.5 H (0.2-1.3) mg/dL AST 178 H (17-59) U/L ALT 111 H (4-49) U/L Alkaline Phosphatase 738 H (38-126) U/L Total Protein 5.5 L (6.3-8.2) g/dL Albumin 2.2 L (3.5-5.0) g/dL Urine Protein (Negative) Urine Glucose (UA) (Negative) Urine Blood (Negative) Urine Bilirubin (Negative) Microbiology - Last 24 Hours (Table) 12/19/20 22:08 Blood Culture Gram Stain - Preliminary Blood Blood Culture - Preliminary Gram Neg Bacilli 12/19/20 22:08 Blood Culture Gram Stain - Preliminary Blood Blood Culture - Preliminary Escherichia coli Assessment and Plan Plan: Assessment: #1. Mild to moderate hypoxic respiratory failure secondary to COVID-19 pneumonia, currently improved the patient is on room air #2. History of stage IV colon cancer, status post remote history of chemotherapy #3. E. coli bacteremia currently on azithromycin and Rocephin #4. Severe hyper bilirubinemia and jaundice, status post duct stent placement at the [facility] #5. Previous history of colon resection with colostomy and subsequent reversal #6. Chronic constipation #7. History of GERD/reflux #8. 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 Prior history of tobacco use Plan: Patient is currently on room air, breathing comfortably His chest x-ray showed only mild peripheral infiltrates Continue Decadron, this COVID-19 infection seems to be mild, Continue antibiotics per ID service recommendations for E. coli bacteremia Continue Lovenox We'll continue to follow his clinical course I performed a history & physical examination of the patient and discussed their management with my nurse practitioner, Melida Caputo. I reviewed the nurse practitioner's note and agree with the documented findings and plan of care. Lung sounds are positive for bilateral crackles throughout the lung nunes. The findings and the impression was discussed with the patient. I attest to the documentation by the nurse practitioner. Time with Patient: Less than 30
--- NOTE | 2020-12-22 23:16 | PN ---
PROGRESS NOTE DATE OF SERVICE: 12/22/2020 REASON FOR FOLLOWUP: E coli bacteremia, possible cholangitis. INTERVAL HISTORY: Patient is afebrile. The patient is currently breathing comfortably on room air. The patient denies having any chest pain. No shortness of breath. Occasional cough. No abdominal pain. No vomiting or diarrhea. PHYSICAL EXAMINATION: Blood pressure 105/67 with a pulse of 60. Temperature 98.1. He is 98% on room air. General description is a middle-aged male lying in bed in no distress. Respiratory system: Unlabored breathing, decreased breath sounds in the base. No wheeze. Heart S1, S2. Regular rate and rhythm. Abdomen soft, no tenderness. Extremities: No edema of the feet. LABS: Hemoglobin 8.1, white count 7.8, creatinine 0.49. Liver enzymes are elevated. CT of abdomen and pelvis did show some CBD and stent. DIAGNOSTIC IMPRESSION AND PLAN: 1. Patient with E coli bacteremia. Source is likely ascending cholangitis in this patient who did have a CBD stent, from previous clinically responding to Rocephin to continue. Blood cultures repeat to document clearance of bacteremia. 2. Patient with Covid 19 positive test. However, the patient is currently not symptomatic from his Covid with no respiratory symptoms, not hypoxic. not indicated and will be discontinued. 3. Continue supportive care. MMODL / IJN: [id number] /
[2020-12-23] MEDS: SODIUM CHLORIDE 0.9% 1,000 ML IV SCH ×2 (03:05→13:45)
[2020-12-23] MEDS: PANTOPRAZOLE 40 MG TABLET PO SCH (06:18)
[2020-12-23 07:22] LABS: Basophils % (A) 0 %; Eosinophils % (A) 0 %; HCT 26.3 % (39.0-53.0); HGB 8.8 gm/dL (13.0-17.5); Lymphocytes # (A) 0.7 k/uL (1.0-4.8); Lymphocytes % (A) 14 %; MCH 32.6 pg (25.0-35.0); MCHC 33.3 g/dL (31.0-37.0); MCV 97.8 fL (80.0-100.0); Mean Platelet Volume 10.3; Monocytes # (A) 0.1 k/uL (0-1.0); Monocytes % (A) 2 %; Neutrophils # (A) 4.3 k/uL (1.3-7.7); Neutrophils % (A) 81 %; Platelet Count 174 k/uL (150-450); RBC 2.69 m/uL (4.30-5.90); RDW 14.7 % (11.5-15.5); WBC 5.3 k/uL (3.8-10.6)
[2020-12-23 07:53] LABS: ALT 146 U/L (4-49); AST 199 U/L (17-59); African American GFR (CKD) >90 (>60 ml/min/1.73 sqM); Albumin 2.1 g/dL (3.5-5.0); Alkaline Phosphatase 968 U/L (38-126); Anion Gap 6 mmol/L; Blood Urea Nitrogen 16 mg/dL (9-20); C Reactive Protein 3.4 mg/dL (<1.0); Calcium 8.4 mg/dL (8.4-10.2); Carbon Dioxide 19 mmol/L (22-30); Chloride 108 mmol/L (98-107); Glucose 77 mg/dL (74-99); LDH 415 U/L (313-618); Non-African American GFR(CKD) >90 (>60 ml/min/1.73 sqM); Potassium 3.5 mmol/L (3.5-5.1); Sodium 133 mmol/L (137-145); Total Bilirubin 7.8 mg/dL (0.2-1.3); Total Protein 5.2 g/dL (6.3-8.2)
[2020-12-23] MEDS: CHOLECALCIFEROL 25 MCG (1000 IU) TABLET PO SCH (08:59)
[2020-12-23] MEDS: ZINC SULFATE 220 MG CAP PO SCH (08:59)
[2020-12-23] MEDS: ASCORBIC ACID 500 MG TAB PO SCH (08:59)
[2020-12-23] MEDS: ENOXAPARIN 40 MG/0.4 ML SYRINGE SQ SCH (08:59)
[2020-12-23] MEDS: FAMOTIDINE 20 MG TAB PO SCH ×2 (08:59→20:22)
[2020-12-23] MEDS: NICOTINE 21MG/24HR PATCH TRANSDERM SCH (09:00)
[2020-12-23 09:11] VITALS: RESP 18
--- NOTE | 2020-12-23 10:02 | P.PN ---
Subjective Progress Note Date: 12/23/20 60-year-old male who presents to the emergency department on December 19, complaining of shortness of breath and weakness. He also has generalized fatigue. He apparently is been sick for about 11 or 12 days. The patient actually started getting sick I believe last Wednesday. He apparently was recently diagnosed with coronavirus infection. The patient states that since then, his symptoms have worsened. He states he is very weak and cannot walk. He states that he falls down. The patient does have a history of stage IV colon cancer, and is quite jaundiced. The patient follows up with Dr. Amaya, in medical oncology, but has not had any treatment or chemotherapy for some time. The patient also states that he recently had a procedure to [facility] on his liver. He was not able to elaborate. The patient is not a particularly good historian. He is getting 2 L by nasal cannula and saline at 100 mL an hour. The patient did get a vaccine against coronavirus in August. He states he got the Moderna vaccine. The patient is a prior smoker as well. The patient also complains of cough, and scratchy throat. His medical history is positive for gastroesophageal reflux disease, colon cancer, and constipation. 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 Family history is positive for diabetes mellitus. White count 10.5, hemoglobin 9.2, hematocrit 26.3, and platelet count 174,000. PT 21.9, INR 2.2, PTT is 34.5. Sodium 129, potassium 3.9, chloride 97, and CO2 19. Anion gap 13, BUN 25, and creatinine 0.68. Total bilirubin 14.0 AST 102 ALT 60 and alkaline phosphatase 808. C-r eactive protein is 19.8. N-terminal proBNP is 1620. Coronavirus testing was positive on December 19. Chest x-ray shows some minimal peripheral infiltrates. The patient is seen today 12/21/2020 in follow-up on the selective care unit. He is currently sitting up in bed. Awake and alert in no acute distress. Feeling a bit better today compared to yesterday. He is maintaining O2 saturations in the 90s on room air. His pro calcitonin was high at 26.9. Blood cultures are positive for E. coli. Currently on ceftriaxone and azithromycin. . He remains on Decadron, Lovenox, vitamin supplements. NicoDerm patch in place. On 12/22/2020 patient seen in follow-up on selective care unit, he is currently on room air, pulse ox is 96%, breathing comfortably, awake and alert, oriented 3, afebrile, hemodynamically stable, he remains on a combination of azithromycin and Rocephin, in view of his elevated pro calcitonin which was 26.9, urinalysis was negative for urinary tract infection, this blood cultures were positive for E. coli. he denies any open wounds. No indwelling lines, CT of the abdomen and pelvis was completed showing large central liver mass consistent with tumor, and metastatic disease, there was biliary stent with reflux into the right lobe of the liver, there is scattered multiple retroperitoneal lymph nodes not significantly different. So remains on Decadron and Lovenox 40 mg daily. Patient has a known history of metastatic colon cancer with metastasis to the liver and lungs. 12/23/2020, I'm seeing the patient for a follow-up. The patient is doing well. Patient is on room air oxygen. He tested positive for COVID-19. He has taken his vaccination for COVID-19. His chest x-ray is free of any significant pulmonary infiltrates and on room air oxygen is around 87% pulse ox. He had a very high protein calcitonin level. E. coli was positive in the blood and there is a possibility of an ascending cholangitis. He is known to have multiple liver masses related to metastatic colon cancer. His pro calcitonin level is down to 9.7. LFTs are also elevated along with an obstructive picture consistent with malignancy. Ascending cholangitis cannot be completely ruled out. He is jaundiced. His bilirubin level is at 8.4. No nausea. No vomiting. No altered mentation. Antibiotic coverage is with IV Rocephin 2 g every 24 hours. Objective - Vital Signs Vital signs: Vital Signs Temp 98.8 F 12/23/20 08:00 Pulse 71 12/23/20 08:00 Resp 18 12/23/20 08:00 BP 84/48 12/23/20 08:00 Pulse Ox 97 12/23/20 08:00 Intake & Output 12/22/20 12/23/20 12/23/20 18:59 06:59 18:59 Intake Total 960 540 960 Balance 960 540 960 Weight 71 kg Intake: Oral 960 540 960 Other: Voiding Method Urinal Urinal Urinal # Voids 1 # Bowel Movements 1 - Exam GENERAL EXAM: Alert, very pleasant, 52-year-old white male, on room air, with pulse ox of 97% comfortable in no apparent distress. HEAD: Normocephalic/atraumatic. EYES: Normal reaction of pupils, equal size. Conjunctiva pink, sclera white. NOSE: Clear with pink turbinates. THROAT: No erythema or exudates. NECK: No masses, no JVD, no thyroid enlargement, no adenopathy. CHEST: No chest wall deformity. Symmetrical expansion. LUNGS: Equal air entry with no crackles, wheeze, rhonchi or dullness. CVS: Regular rate and rhythm, normal S1 and S2, no gallops, no murmurs, no rubs ABDOMEN: Soft, nontender. No hepatosplenomegaly, normal bowel sounds, no guarding or rigidity. EXTREMITIES: No clubbing, no edema, no cyanosis, 2+ pulses and upper and lower extremities. MUSCULOSKELETAL: Muscle strength and tone normal. SPINE: No scoliosis or deformity SKIN: No rashes CENTRAL NERVOUS SYSTEM: Alert and oriented -3. No focal deficits, tone is normal in all 4 extremities. PSYCHIATRIC: Alert and oriented -3. Appropriate affect. Intact judgment and insight. - Labs CBC & Chem 7: 12/23/20 07:00 12/23/20 07:00 Labs: Abnormal Lab Results - Last 24 Hours (Table) 12/22/20 12/22/20 12/23/20 Range/Units 08:03 11:41 07:00 RBC (4.30-5.90) m/uL Hgb (13.0-17.5) gm/dL Hct (39.0-53.0) % Lymphocytes # (1.0-4.8) k/uL D-Dimer 1.77 H (<0.60) mg/L FEU Sodium (137-145) mmol/L Chloride (98-107) mmol/L Carbon Dioxide (22-30) mmol/L Creatinine (0.66-1.25) mg/dL POC Glucose (mg/dL) 156 H (75-99) mg/dL Total Bilirubin (0.2-1.3) mg/dL AST (17-59) U/L ALT (4-49) U/L Alkaline Phosphatase (38-126) U/L C-Reactive Protein (<1.0) mg/dL Total Protein (6.3-8.2) g/dL Albumin (3.5-5.0) g/dL Procalcitonin 9.78 H (0.02-0.09) ng/mL 12/23/20 12/23/20 Range/Units 07:00 07:00 RBC 2.69 L (4.30-5.90) m/uL Hgb 8.8 L (13.0-17.5) gm/dL Hct 26.3 L (39.0-53.0) % Lymphocytes # 0.7 L (1.0-4.8) k/uL D-Dimer (<0.60) mg/L FEU Sodium 133 L (137-145) mmol/L Chloride 108 H (98-107) mmol/L Carbon Dioxide 19 L (22-30) mmol/L Creatinine 0.65 L (0.66-1.25) mg/dL POC Glucose (mg/dL) (75-99) mg/dL Total Bilirubin 7.8 H (0.2-1.3) mg/dL AST 199 H (17-59) U/L ALT 146 H (4-49) U/L Alkaline Phosphatase 968 H (38-126) U/L C-Reactive Protein 3.4 H (<1.0) mg/dL Total Protein 5.2 L (6.3-8.2) g/dL Albumin 2.1 L (3.5-5.0) g/dL Procalcitonin (0.02-0.09) ng/mL Microbiology - Last 24 Hours (Table) 12/19/20 22:08 Blood Culture Gram Stain - Final Blood Blood Culture - Final Escherichia coli 12/19/20 22:08 Blood Culture Gram Stain - Final Blood Blood Culture - Final Escherichia coli Assessment and Plan Plan: #1. Mild to moderate hypoxic respiratory failure secondary to COVID-19 pneumonia, currently improved the patient is on room air #2. History of stage IV colon cancer, status post remote history of chemotherapy #3. Sepsis secondary to E. coli, progesterone level is improving and the patient remains on IV Rocephin 2 g every 24 hours. Rule out ascending cholangitis. #4 biliary duct stent placement at the [facility] #5. Previous history of colon resection with colostomy and subsequent reversal #6. Chronic constipation #7. History of GERD/reflux #8. 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 Prior history of tobacco use Plan: Patient is currently on room air, breathing comfortably His chest x-ray showed only mild peripheral infiltrates no need for steroids at this point in time Provide incentive spirometer Patient is on room air oxygen Continue antibiotics per ID service recommendations for E. coli bacteremia Continue Lovenox Pulmonary status is stable for now.
--- NOTE | 2020-12-23 14:08 | P.PN ---
Subjective Progress Note Date: 12/23/20 HISTORY OF PRESENT ILLNESS This is a 60-year-old male patient of Dr. Alcantara with long history of colon cancer status post segmental resection of sigmoid colon creation of temporary colostomy October [address] Angel with subsequent reversal done at [facility] with subsequent chemotherapy. 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 He had a recent hospitalization on 11/26 after he was at Dr. Amaya's office with plan to start chemotherapy but patient was found to be jaundiced and was sent into the hospital for further evaluation. CT of the abdomen showing worsening of hepatic metastatic lesion is a moderate left-sided extrahepatic biliary dilation. Worsening pulmonary metastatic disease. Suspect new retroperitoneal adenopathy. Cannot exclude osseous sclerotic metastatic disease. Interventional radiology was unable to perform percutaneous transhepatic cholangiogram so patient was transferred [facility] and patient states that he was there for one day had a stent placed and was discharged the following day. He then went to [place] with his sisters for a wedding and came back and family members were diagnosed with Covid, he subsequently went to [employer] on Wednesday and tested positive. He states that he was doing okay until yesterday when he couldn't walk due to extreme weakness. He denies any shortness of breath. He has had fever and chills, and go. No nausea or vomiting. He states he has a cough with phlegm but this only occurred once. He said there was a little blood also. He was to have follow-up with oncology but this was rescheduled due to his Covid diagnosis. Patient is vaccinated for Covid 19. Temperature max 102.8, heart rate 129, respiratory rate 17, blood pressure 113/78, pulse ox 96% on 2 L nasal cannula. He subsequently had a drop in his blood pressure with systolic in the 80s status post 3 L of IV fluid. WBC 10.5, hemoglobin 9.2, platelet count 174. INR 2.2. Sodium 129, CO2 19, chloride 97, BUN 25 creatinine 0.68. Blood sugar 124. Total bilirubin is 14, AST 102, ALT 60, alkaline phosphatase 808. Pro- calcitonin 26.9. Coronavirus PCR detected. Chest x-ray reveals very mild p eripheral infiltrates which are nonspecific but can be compatible with atypical pneumonia. Patient admitted to the cardiac stepdown unit and consult with pulmonary medicine, oncology. Patient has not candidate for Remdisivir. 12/21: Patient is in for follow-up, slightly weekend, however he is coherent, no falls while in the hospital, he has visible jaundice, , no GI bleed. he is not a candidate for remdesivir secondary to elevated liver function test,, vaccinated withmoderna and the in September, however is receiving dexamethasone IV, there is a pharmacy blood culture report, that says E. coli was isolated in blood culture, for which sensitivities count pending, on IV Rocephin. Suspicion for the fever, and metastatic colon cancer, with right lower lobe infiltrate, cholangitis is a more probable possibility for the source of the E. coli, 12/22, CAT scan of the abdomen shows a 11 cm central mass in the liver, and a smaller masses in the anterior and lateral, with 3.5 cm diameter mass, CAT scan, this looks like a solid tumor, rather than an abscess, urinalysis is unremarkable for pyuria, patient still on IV antibiotics Rocephin, for E. coli bacteremia. An MRI of the liver, against an ultrasound, to eval abscess formation, CAT scan is noncontributory, obtain echocardiogram of the heart to look for vegetation 12/23: Repeat blood culture was obtained yesterday and report is pending. Dr. Hernandez is planning to continue Rocephin. Patient denies having any shortness of breath, no cough. Steroids not necessary per Dr. Logan. Incentive spirometry has been ordered. Patient has been afebrile, heart rate 65, blood pressure 87/52, pulse ox 96% on room air. WBC 5.3, hemoglobin 8.8, platelet count 174. D-dimer 1.77. Sodium 133, potassium 3.5, chloride 108, CO2 19, BUN 16 creatinine 0.65. Total bilirubin 7.8, AST 199, ALT 146, alkaline phosphatase 968. LDH 415. C-reactive protein 3.4. REVIEW OF SYSTEMS Constitutional: No fever, no chills, no night sweats. Noted weight change. Reports weakness, reports fatigue no lethargy. No daytime sleepiness. EENT: No headache. No blurred vision or double vision, no loss of vision. No loss of Hearing, no ringing in the ears, no dizziness. No nasal drainage or congestion. No epistaxis. No sore throat. Lungs: No shortness of breath, minimal cough, no sputum production. No wheezing. Cardiovascular: No chest pain, no lower extremity edema. No palpitations. No paroxysmal nocturnal dyspnea. No orthopnea. No lightheadedness or dizziness. No syncopal episodes. Abdominal: Denies abdominal pain. No nausea, vomiting. No diarrhea. No constipation. No bloody or tarry stools.. No loss of appetite. Genitourinary: No dysuria, increased frequency, urgency. No urinary retention. Change in urine color. Musculoskeletal: No myalgias. No muscle weakness, no gait dysfunction, no frequent falls. No back pain. No neck pain. Integumentary: No wounds, no lesions. No rash or pruritus. No unusual bruising. No change in hair or nails. Neurologic: No aphasia. No facial droop. No change in mentation. No head injury. No headache. No paralysis. No paresthesia. Psychiatric: No depression. No anxiety. No mood swings. Endocrine: No abnormal blood sugars. Noted weight loss of 7 kg since last admission. PHYSICAL EXAMINATION Gen: This is a 60-year-old male. He is resting on the edge of the bed and appears to be comfortable. HEENT: Head is atraumatic, normocephalic. Pupils equal, round. Sclerae is anicteric. NECK: Supple. No JVD. No lymphadenopathy. No thyromegaly. LUNGS: Scattered rhonchi. No intercostal retractions. HEART: Regular rate and rhythm. No murmur. ABDOMEN: Soft. Bowel sounds are present. No masses. No tenderness. EXTREMITIES: No pedal edema. No calf tenderness. NEUROLOGICAL: Patient is awake, alert and oriented x3. Cranial nerves 2 through 12 are grossly intact. ASSESSMENT AND PLAN 1. Sepsis with E. coli bacteremia secondary to ascending cholangitis. Continue Rocephin, await repeat blood culture, Dr. Hernandez is following. 2. Recent hospitalization for hyperbilirubinemia with jaundice secondary to colon cancer with metastatic disease, status post percutaneous transhepatic cholangiogram/stent at [facility]. 3. Metastatic colon cancer with metastases to the liver and lungs. Consult with oncology. Patient had appointment now rescheduled due to Covid 19. 4. Tobacco use and dependence. Nicotine patch. 5. Alcohol abuse, monitor for DTs. 6. GI prophylaxis. Protonix. 7. DVT prophylaxis. SCDs and BJORN hose right leg. We will hold Lovenox due to INR of 2.2. 8. History of amputation of left foot from farm accident. 9. Covid 19 test positive, asymptomatic, incidental finding. DISCHARGE PLAN Home on Wednesday IV antibiotics. Impression and plan of care have been directed as dictated by the signing physician. Melia Perez nurse practitioner acting as scribe for signing physician. Objective - Vital Signs Vital signs: Vital Signs Temp 98.8 F 12/23/20 08:00 Pulse 71 12/23/20 08:00 Resp 18 12/23/20 08:00 BP 84/48 12/23/20 08:00 Pulse Ox 97 12/23/20 08:00 Intake & Output 12/22/20 12/23/20 12/23/20 18:59 06:59 18:59 Intake Total 960 540 960 Balance 960 540 960 Weight 71 kg Intake: Oral 960 540 960 Other: Voiding Method Urinal Urinal Urinal # Voids 1 # Bowel Movements 1 - Labs CBC & Chem 7: 12/23/20 07:00 12/23/20 07:00 Labs: Abnormal Lab Results - Last 24 Hours (Table) 12/22/20 12/22/20 12/23/20 Range/Units 08:03 11:41 07:00 RBC (4.30-5.90) m/uL Hgb (13.0-17.5) gm/dL Hct (39.0-53.0) % Lymphocytes # (1.0-4.8) k/uL D-Dimer 1.77 H (<0.60) mg/L FEU Sodium (137-145) mmol/L Chloride (98-107) mmol/L Carbon Dioxide (22-30) mmol/L Creatinine (0.66-1.25) mg/dL POC Glucose (mg/dL) 156 H (75-99) mg/dL Total Bilirubin (0.2-1.3) mg/dL AST (17-59) U/L ALT (4-49) U/L Alkaline Phosphatase (38-126) U/L C-Reactive Protein (<1.0) mg/dL Total Protein (6.3-8.2) g/dL Albumin (3.5-5.0) g/dL Procalcitonin 9.78 H (0.02-0.09) ng/mL 12/23/20 12/23/20 Range/Units 07:00 07:00 RBC 2.69 L (4.30-5.90) m/uL Hgb 8.8 L (13.0-17.5) gm/dL Hct 26.3 L (39.0-53.0) % Lymphocytes # 0.7 L (1.0-4.8) k/uL D-Dimer (<0.60) mg/L FEU Sodium 133 L (137-145) mmol/L Chloride 108 H (98-107) mmol/L Carbon Dioxide 19 L (22-30) mmol/L Creatinine 0.65 L (0.66-1.25) mg/dL POC Glucose (mg/dL) (75-99) mg/dL Total Bilirubin 7.8 H (0.2-1.3) mg/dL AST 199 H (17-59) U/L ALT 146 H (4-49) U/L Alkaline Phosphatase 968 H (38-126) U/L C-Reactive Protein 3.4 H (<1.0) mg/dL Total Protein 5.2 L (6.3-8.2) g/dL Albumin 2.1 L (3.5-5.0) g/dL Procalcitonin (0.02-0.09) ng/mL Microbiology - Last 24 Hours (Table) 12/19/20 22:08 Blood Culture Gram Stain - Final Blood Blood Culture - Final Escherichia coli 12/19/20 22:08 Blood Culture Gram Stain - Final Blood Blood Culture - Final Escherichia coli
--- NOTE | 2020-12-23 17:29 | PN ---
PROGRESS NOTE DATE OF SERVICE: 12/23/2020 REASON FOR FOLLOWUP: E coli bacteremia source likely ascending cholangitis. INTERVAL HISTORY: Patient is afebrile. He is breathing comfortably. The patient denies having any chest pain, shortness of breath or cough. No abdominal pain. No diarrhea. EXAMINATION: Blood pressure 94/51, pulse of 65, temperature 98.5. He is 93% on room air. General description is a middle-aged male lying in bed in no distress. Respiratory system: Unlabored breathing, clear to auscultation anteriorly. Heart S1, S2. Regular rate and rhythm. Abdomen soft, no tenderness. LABS: Blood culture with E coli sensitive pathogen. Blood cultures have been negative so far. Creatinine 0.65. DIAGNOSTIC IMPRESSION AND TREATMENT PLAN: 1. Patient with E coli bacteremia secondary to ascending cholangitis. No . Repeat blood culture negative. Patient on Rocephin to continue, transition to oral antibiotic on discharge. The patient should take antibiotics for at least two weeks. 2. Positive Covid test. No evidence of any Covid pneumonia, treatment is mostly supportive. MMODL / IJN: [id number] /
--- NOTE | 2020-12-23 17:42 | ECHOF ---
Referral Reason:endocarditis bacterial MEASUREMENTS -------- HEIGHT: 182.9 cm WEIGHT: 77.1 kg BP: IVSd: 1.1 cm (0.6 - 1.1) LVIDd: 5.4 cm (3.9 - 5.3) LVPWd: 1.5 cm (0.6 - 1.1) EDV(Teich): 143 ml IVSs: 1.7 cm LVIDs: 3.3 cm LVPWs: 2.1 cm %IVS Thck: 51 % ESV(Teich): 45 ml EF(Teich): 69 % %FS: 39 % SV(Teich): 99 ml LA Diam: 3.9 cm (2.7 - 3.8) RVIDd: 3.1 cm (< 3.3) Ao Diam: 3.7 cm (2.0 - 3.7) LA Diam: 3.7 cm (2.7 - 3.8) AV Cusp: 2.2 cm (1.5 - 2.6) EPSS: 0.4 cm TR Vmax: 1.67 m/s TR maxP.18 mmHg RAP: 5.00 mmHg RVSP: 16.18 mmHg MV EF SLOPE: 125.98 mm/s (70 - 150) MV EXCURSION: 23.84 mm (> 18.000) FINDINGS -------- Sinus rhythm. Pt is Covid positive. LV size, wall thickness and systolic function are normal, with an EF greater than 55%. The left tracey tricular size is normal. The right ventricle is normal in size. The left atrial size is normal. The right atrial size is normal. The aortic valve is trileaflet, and appears structurally normal. No aortic stenosis or regurgitation. There is mild aortic valve sclerosis. Mild mitral regurgitation is present. Mild tricuspid regurgitation present. Right ventricular systolic pressure is normal at < 35 mmHg. There is no pulmonic regurgitation present. There is no pericardial effusion. CONCLUSIONS -------- 1. Pt is Covid positive. 2. LV size, wall thickness and systolic function are normal, with an EF greater than 55%. 3. The left ventricular size is normal. 4. The right ventricle is normal in size. 5. The left atrial size is normal. 6. The right atrial size is normal. 7. The aortic valve is trileaflet, and appears structurally normal. No aortic stenosis or regurgitati on. 8. There is mild aortic valve sclerosis. 9. Mild mitral regurgitation is present. 10. Mild tricuspid regurgitation present. 11. There is no pericardial effusion. [employer]: Bridget Forrest RDCS
[2020-12-24] MEDS: SODIUM CHLORIDE 0.9% 1,000 ML IV SCH ×3 (00:48→01:33)
[2020-12-24] MEDS: PANTOPRAZOLE 40 MG TABLET PO SCH (06:21)
[2020-12-24] MEDS: NICOTINE 21MG/24HR PATCH TRANSDERM SCH (08:22)
[2020-12-24] MEDS: FAMOTIDINE 20 MG TAB PO SCH (08:26)
[2020-12-24] MEDS: ASCORBIC ACID 500 MG TAB PO SCH (08:26)
[2020-12-24] MEDS: ZINC SULFATE 220 MG CAP PO SCH (08:27)
[2020-12-24] MEDS: ENOXAPARIN 40 MG/0.4 ML SYRINGE SQ SCH (08:27)
[2020-12-24] MEDS: CHOLECALCIFEROL 25 MCG (1000 IU) TABLET PO SCH (08:27)
[2020-12-24 08:35] VITALS: BP 99/54; PULSE 64; TEMP 97.7
--- NOTE | 2020-12-24 10:48 | P.DS ---
Providers Date of admission: 12/20/20 03:01 Expected date of discharge: 12/24/20 Attending physician: Yessy Escobar Consults: 12/20/20 03:02 Consult Physician Routine Consulting Provider: Michael Hernandez Consult Reason/Comments: covid 19 infection Do you want consulting provider notified?: Yes 12/20/20 11:12 Consult Physician Routine Consulting Provider: Flash Nash Consult Reason/Comments: covid Do you want consulting provider notified?: Yes 12/20/20 11:14 Consult Physician Routine Consulting Provider: Lucas Loredo Consult Reason/Comments: colon ca w mets Do you want consulting provider notified?: Yes Primary care physician: [facility] Course: HISTORY OF PRESENT ILLNESS This is a 60-year-old male patient of Dr. Alcantara with long history of colon cancer status post segmental resection of sigmoid colon creation of temporary colostomy October [address] Angel with subsequent reversal done at [facility] with subsequent chemotherapy. 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 He had a recent hospitalization on 11/26 after he was at Dr. Amaya's office with plan to start chemotherapy but patient was found to be jaundiced and was sent into the hospital for further evaluation. CT of the abdomen showing worsening of hepatic metastatic lesion is a moderate left-sided extrahepatic biliary dilation. Worsening pulmonary metastatic disease. Suspect new retroperitoneal adenopathy. Cannot exclude osseous sclerotic metastatic disease. Interventional radiology was unable to perform percutaneous transhepatic cholangiogram so patient was transferred [facility] and patient states that he was there for one day had a stent placed and was discharged the following day. He then went to [place] with his sisters for a wedding and came back and family members were diagnosed with Covid, he subsequently went to [employer] on Wednesday and tested positive. He states that he was doing okay until yesterday when he couldn't walk due to extreme weakness. He denies any shortness of breath. He has had fever and chills, and go. No nausea or vomiting. He states he has a cough with phlegm but this only occurred once. He said there was a little blood also. He was to have follow-up with oncology but this was rescheduled due to his Covid diagnosis. Patient is vaccinated for Covid 19. Temperature max 102.8, heart rate 129, respiratory rate 17, blood pressure 113/78, pulse ox 96% on 2 L nasal cannula. He subsequently had a drop in his blood pressure with systolic in the 80s status post 3 L of IV fluid. WBC 10.5, hemoglobin 9.2, platelet count 174. INR 2.2. Sodium 129, CO2 19, chloride 97, BUN 25 creatinine 0.68. Blood sugar 124. Total bilirubin is 14, AST 102, ALT 60, alkaline phosphatase 808. Pro- calcitonin 26.9. Coronavirus PCR detected. Chest x-ray reveals very mild peripheral infiltrates which are nonspecific but can be compatible with atypical pneumonia. Patient admitted to the cardiac stepdown unit and consult with pulmonary medicine, oncology. Patient has not candidate for Remdisivir. 12/21: Patient is in for follow-up, slightly weekend, however he is coherent, no falls while in the hospital, he has visible jaundice, , no GI bleed. he is not a candidate for remdesivir secondary to elevated liver function test,, vaccinated withmoderna and the in September, however is receiving dexamethasone IV, there is a pharmacy blood culture report, that says E. coli was isolated in blood culture, for which sensitivities count pending, on IV Rocephin. Suspicion for the fever, and metastatic colon cancer, with right lower lobe infiltrate, cholangitis is a more probable possibility for the source of the E. coli, 12/22, CAT scan of the abdomen shows a 11 cm central mass in the liver, and a smaller masses in the anterior and lateral, with 3.5 cm diameter mass, CAT scan, this looks like a solid tumor, rather than an abscess, urinalysis is unremarkable for pyuria, patient still on IV antibiotics Rocephin, for E. coli bacteremia. An MRI of the liver, against an ultrasound, to eval abscess formation, CAT scan is noncontributory, obtain echocardiogram of the heart to look for vegetation 12/23: Repeat blood culture was obtained yesterday and report is pending. Dr. Hernandez is planning to continue Rocephin. Patient denies having any shortness of breath, no cough. Steroids not necessary per Dr. Logan. Incentive spirometry has been ordered. Patient has been afebrile, heart rate 65, blood pressure 87/52, pulse ox 96% on room air. WBC 5.3, hemoglobin 8.8, platelet count 174. D-dimer 1.77. Sodium 133, potassium 3.5, chloride 108, CO2 19, BUN 16 creatinine 0.65. Total bilirubin 7.8, AST 199, ALT 146, alkaline phosphatase 968. LDH 415. C-reactive protein 3.4. 12/24: Patient denies any new complaints. Repeat blood culture obtained on 12/06 7 as showing no growth at [address] Hernandez is recommended oral antibiotics at discharge for 2 week course. Patient remains afebrile, heart rate 64, blood pressure 99/54, pulse ox 99% on room air. Patient will be discharged home today in stable condition. ASSESSMENT AND PLAN 1. Sepsis with E. coli bacteremia secondary to ascending cholangitis. 2. Recent hospitalization for hyperbilirubinemia with jaundice secondary to colon cancer with metastatic disease, status post percutaneous transhepatic cholangiogram/stent at [facility]. 3. Metastatic colon cancer with metastases to the liver and lungs. 4. Tobacco use and dependence. 5. Alcohol abuse, monitor for DTs. 6. History of amputation of left foot from farm accident. 9. Covid 19 test positive, asymptomatic, incidental finding. DISCHARGE PLAN Home Impression and plan of care have been directed as dictated by the signing physician. Melia Perez nurse practitioner acting as scribe for signing physician. Patient Condition at Discharge: Good Plan - Discharge Summary Discharge Rx Participant: No New Discharge Prescriptions: New Cefuroxime Axetil [Ceftin] 500 mg PO BID 14 Days #28 tab Discharge Medication List Cefuroxime Axetil [Ceftin] 500 mg PO BID 14 Days #28 tab 12/24/20 [Rx] Follow up Appointment(s)/Referral(s): David Alcantara DO [Primary Care Provider] - 01/02/21 10:30 am Patient Instructions/Handouts: Coronavirus Disease 2019 (COVID-19) Discharge Disposition: HOME WITH HOME HEALTH SERVICES
--- NOTE | 2020-12-24 11:45 | P.PN ---
Subjective Progress Note Date: 12/24/20 60-year-old male who presents to the emergency department on December 19, complaining of shortness of breath and weakness. He also has generalized fatigue. He apparently is been sick for about 11 or 12 days. The patient actually started getting sick I believe last Wednesday. He apparently was recently diagnosed with coronavirus infection. The patient states that since then, his symptoms have worsened. He states he is very weak and cannot walk. He states that he falls down. The patient does have a history of stage IV colon cancer, and is quite jaundiced. The patient follows up with Dr. Amaya, in medical oncology, but has not had any treatment or chemotherapy for some time. The patient also states that he recently had a procedure to [facility] on his liver. He was not able to elaborate. The patient is not a particularly good historian. He is getting 2 L by nasal cannula and saline at 100 mL an hour. The patient did get a vaccine against coronavirus in August. He states he got the Moderna vaccine. The patient is a prior smoker as well. The patient also complains of cough, and scratchy throat. His medical history is positive for gastroesophageal reflux disease, colon cancer, and constipation. 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 Family history is positive for diabetes mellitus. White count 10.5, hemoglobin 9.2, hematocrit 26.3, and platelet count 174,000. PT 21.9, INR 2.2, PTT is 34.5. Sodium 129, potassium 3.9, chloride 97, and CO2 19. Anion gap 13, BUN 25, and creatinine 0.68. Total bilirubin 14.0 AST 102 ALT 60 and alkaline phosphatase 808. C-r eactive protein is 19.8. N-terminal proBNP is 1620. Coronavirus testing was positive on December 19. Chest x-ray shows some minimal peripheral infiltrates. The patient is seen today 12/21/2020 in follow-up on the selective care unit. He is currently sitting up in bed. Awake and alert in no acute distress. Feeling a bit better today compared to yesterday. He is maintaining O2 saturations in the 90s on room air. His pro calcitonin was high at 26.9. Blood cultures are positive for E. coli. Currently on ceftriaxone and azithromycin. . He remains on Decadron, Lovenox, vitamin supplements. NicoDerm patch in place. On 12/22/2020 patient seen in follow-up on selective care unit, he is currently on room air, pulse ox is 96%, breathing comfortably, awake and alert, oriented 3, afebrile, hemodynamically stable, he remains on a combination of azithromycin and Rocephin, in view of his elevated pro calcitonin which was 26.9, urinalysis was negative for urinary tract infection, this blood cultures were positive for E. coli. he denies any open wounds. No indwelling lines, CT of the abdomen and pelvis was completed showing large central liver mass consistent with tumor, and metastatic disease, there was biliary stent with reflux into the right lobe of the liver, there is scattered multiple retroperitoneal lymph nodes not significantly different. So remains on Decadron and Lovenox 40 mg daily. Patient has a known history of metastatic colon cancer with metastasis to the liver and lungs. 12/23/2020, I'm seeing the patient for a follow-up. The patient is doing well. Patient is on room air oxygen. He tested positive for COVID-19. He has taken his vaccination for COVID-19. His chest x-ray is free of any significant pulmonary infiltrates and on room air oxygen is around 87% pulse ox. He had a very high protein calcitonin level. E. coli was positive in the blood and there is a possibility of an ascending cholangitis. He is known to have multiple liver masses related to metastatic colon cancer. His pro calcitonin level is down to 9.7. LFTs are also elevated along with an obstructive picture consistent with malignancy. Ascending cholangitis cannot be completely ruled out. He is jaundiced. His bilirubin level is at 8.4. No nausea. No vomiting. No altered mentation. Antibiotic coverage is with IV Rocephin 2 g every 24 hours. On today's evaluation of , the patient is doing well. The patient will be switched to oral antibiotics and the patient was placed on oral Ceftin. No new complaints otherwise. No respiratory difficulties. As mentioned earlier, he has a COVID-19 positive status. His presentation however was typical of a gram-negative sepsis and bacteremia. LFTs are still abnormal, his pro- calcitonin level has dropped considerably. Currently is on room air oxygen with a pulse ox of 99%. Objective - Vital Signs Vital signs: Vital Signs Temp 97.7 F 12/24/20 08:00 Pulse 64 12/24/20 08:00 Resp 18 12/24/20 08:00 BP 99/54 12/24/20 08:00 Pulse Ox 99 12/24/20 08:00 Intake & Output 12/23/20 12/24/20 12/24/20 18:59 06:59 18:59 Intake Total 1200 180 Output Total 300 1450 Balance 900 -1450 180 Intake: Oral 1200 180 Output: Urine 300 1450 Other: Voiding Method Urinal Urinal Urinal - Exam GENERAL EXAM: Alert, very pleasant, 52-year-old white male, on room air, with pulse ox of 97% comfortable in no apparent distress. HEAD: Normocephalic/atraumatic. EYES: Normal reaction of pupils, equal size. Conjunctiva pink, sclera white. NOSE: Clear with pink turbinates. THROAT: No erythema or exudates. NECK: No masses, no JVD, no thyroid enlargement, no adenopathy. CHEST: No chest wall deformity. Symmetrical expansion. LUNGS: Equal air entry with no crackles, wheeze, rhonchi or dullness. CVS: Regular rate and rhythm, normal S1 and S2, no gallops, no murmurs, no rubs ABDOMEN: Soft, nontender. No hepatosplenomegaly, normal bowel sounds, no guarding or rigidity. EXTREMITIES: No clubbing, no edema, no cyanosis, 2+ pulses and upper and lower extremities. MUSCULOSKELETAL: Muscle strength and tone normal. SPINE: No scoliosis or deformity SKIN: No rashes CENTRAL NERVOUS SYSTEM: Alert and oriented -3. No focal deficits, tone is normal in all 4 extremities. PSYCHIATRIC: Alert and oriented -3. Appropriate affect. Intact judgment and insight. - Labs CBC & Chem 7: 12/23/20 07:00 12/23/20 07:00 Labs: Microbiology - Last 24 Hours (Table) 12/22/20 08:03 Blood Culture - Preliminary Blood No Growth after 48 hours 12/19/20 22:08 Blood Culture Gram Stain - Final Blood Blood Culture - Final Escherichia coli 12/19/20 22:08 Blood Culture Gram Stain - Final Blood Blood Culture - Final Escherichia coli Assessment and Plan Plan: #1. Mild to moderate hypoxic respiratory failure secondary to COVID-19 pneumonia, currently improved the patient is on room air #2. History of stage IV colon cancer, status post remote history of chemotherapy #3. Sepsis secondary to E. coli, progesterone level is improving and the patient remains on IV Rocephin 2 g every 24 hours. Rule out ascending cholangitis. #4 biliary duct stent placement at the [facility] #5. Previous history of colon resection with colostomy and subsequent reversal #6. Chronic constipation #7. History of GERD/reflux #8. 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 Prior history of tobacco use Plan: Patient is currently on room air, breathing comfortably His chest x-ray showed only mild peripheral infiltrates no need for steroids at this point in time Provide incentive spirometer Patient is on room air oxygen Continue antibiotics per ID service recommendations for E. coli bacteremia The patient will be discharged home on oral Ceftin. Overall respiratory status is stable. He remains on room air oxygen. No need for steroids.
--- NOTE | 2020-12-24 12:42 | PN ---
PROGRESS NOTE DATE OF SERVICE: 12/24/2020 REASON FOR FOLLOWUP: E coli bacteremia cholangitis. INTERVAL HISTORY: Patient was seen on rounds this morning. The patient has been afebrile. He is breathing comfortably. Denies any chest pain, shortness of breath or cough. No abdominal pain or diarrhea. PHYSICAL EXAMINATION: Blood pressure is 99/50 with a pulse of 64. Temperature is 97.5. Sating 99% on room air. General description is a middle-aged male up in the in bed in no distress. Respiratory system: Unlabored breathing, clear to auscultation anteriorly. Heart S1, S2. Regular rate and rhythm. Abdomen soft, no tenderness. LABS: White count of 5.3 with a creatinine 0.65. Blood cultures 12/22 has been negative. DIAGNOSTIC IMPRESSION AND PLAN: Patient with E coli bacteremia, source likely ascending cholangitis as the patient did have a biliary stent. Plan at this time is to finish therapy with oral Ceftin for 2 weeks and close outpatient followup. Continue supportive care. MMODL / IJN: [id number] /
== END 2020-12-24 12:08 | disposition home health service (06) | DRG 871 ==
LOC: EC 18:53 → 3SCARD 12-20 03:01
PROVIDERS: ADMIT Family Medicine; ATTEND Family Medicine
DX: A41.51 Sepsis due to Escherichia coli [E. coli] (principal); U07.1 COVID-19; C18.9 Malignant neoplasm of colon, unspecified; C78.7 Secondary malignant neoplasm of liver and intrahepatic bile duct; C78.00 Secondary malignant neoplasm of unspecified lung; K83.09 Other cholangitis; K21.9 Gastro-esophageal reflux disease without esophagitis; F17.210 Nicotine dependence, cigarettes, uncomplicated; F10.10 Alcohol abuse, uncomplicated; K59.09 Other constipation; Z89.432 Acquired absence of left foot; Z80.8 Family history of malignant neoplasm of other organs or systems; Z83.3 Family history of diabetes mellitus; Z85.038 Personal history of other malignant neoplasm of large intestine; Z92.21 Personal history of antineoplastic chemotherapy
CPT/HCPCS: 36415; 71045; 74177; 80053; 81001; 82728; 83605; 83615; 83735; 83880; 84145; 84484; 85025; 85379; 85610; 85730; 86140; 87040; 87077; 87186; 87635; 93005; 93306; 94760